=== PATIENT | female | born 1945 | race American Indian/Alaskan Native ===

== ENCOUNTER 2018-01-21 09:01 | Emergency (ER) | payer MEDICARE ==
--- NOTE | 2018-01-21 12:38 | XRay Report ---
KUB: There is a PEG tube present. The balloon position relative to the stomach cannot be confirmed without contrast. The abdominal gas pattern is unremarkable. Extensive dystrophic calcification is located around both hips. Impression: PEG tube position is indeterminate.
--- NOTE | 2018-01-21 13:37 | Emergency Department Report ---
ED General Adult HPI - General Chief complaint: Medical Clearance Stated complaint: G TUBE REPLACEMENT Time Seen by Provider: 01/21/18 09:40 Source: EMS Mode of arrival: Ambulatory Limitations: Physical Limitation - History of Present Illness Initial comments: [facility]. The patient is nonverbal and not able to add to the history. Per the notes sent by the penitentiary to have had issues with her feeding tube for the last 24-48 hours. Severity scale (0 -10): 0 - Related Data Previous Rx's Medication Instructions Recorded Last Taken Type Bisacodyl [Dulcolax suppos] 10 mg FL QDAY PRN #20 supp.rect 10/24/16 Unknown Rx Donepezil [Aricept] 5 mg PO QHS #30 tablet 10/24/16 Unknown Rx Hydrochlorothiazide [HCTZ] 12.5 mg PO QDAY #30 capsule 10/24/16 Unknown Rx Levofloxacin [Levaquin TAB] 500 mg PO QDAY #5 tablet 10/24/16 Unknown Rx Megestrol [Megace] 400 mg PO QDAY #30 oral.liqd 10/24/16 Unknown Rx Memantine Xr [Namenda Xr] 7 mg PO QDAY #30 cap 10/24/16 Unknown Rx Metoprolol [Lopressor TAB] 25 mg PO BID #60 tablet 10/24/16 Unknown Rx Lipase/Protease/Amylase [Pancreaze 1 each FEEDTUBE PRN PRN #30 capsule 10/27/[address] 10,500 Unit] Simple Syrup 15 ml FEEDTUBE PRN PRN #30 10/27/16 Unknown Rx oral.liqd Sodium Bicarbonate 325 mg FEEDTUBE PRN PRN #30 tablet 10/27/16 Unknown Rx Allergies Allergy/AdvReac Type Severity Reaction Status Date / Time No Known Allergies Allergy Unverified 09/25/16 07:28 ED Review of Systems ROS: Stated complaint: G TUBE REPLACEMENT Other details as noted in HPI Comment: Unobtainable due to pts medical conditions ED Past Medical Hx - Past Medical History Hx Hypertension: Yes Hx Dementia: Yes Hx HIV: No - Social History Smoking Status: Unknown if ever smoked - Medications Home Medications: Home Medications Medication Instructions Recorded Confirmed Last Taken Type Bisacodyl [Dulcolax suppos] 10 mg FL QDAY PRN #20 supp.rect 10/24/16 Unknown Rx Donepezil [Aricept] 5 mg PO QHS #30 tablet 10/24/16 Unknown Rx Hydrochlorothiazide [HCTZ] 12.5 mg PO QDAY #30 capsule 10/24/16 Unknown Rx Levofloxacin [Levaquin TAB] 500 mg PO QDAY #5 tablet 10/24/16 Unknown Rx Megestrol [Megace] 400 mg PO QDAY #30 oral.liqd 10/24/16 Unknown Rx Memantine Xr [Namenda Xr] 7 mg PO QDAY #30 cap 10/24/16 Unknown Rx Metoprolol [Lopressor TAB] 25 mg PO BID #60 tablet 10/24/16 Unknown Rx Lipase/Protease/Amylase [Pancreaze 1 each FEEDTUBE PRN PRN #30 capsule 10/27/16 Unknown Rx 10,500 Unit] Simple Syrup 15 ml FEEDTUBE PRN PRN #30 10/27/16 Unknown Rx oral.liqd Sodium Bicarbonate 325 mg FEEDTUBE PRN PRN #30 tablet 10/27/16 Unknown Rx ED Physical Exam - General Limitations: Physical Limitation General appearance: other (patient is awake) - Head Head exam: Present: atraumatic, normocephalic - Eye Eye exam: Present: normal appearance, PERRL, EOMI - ENT ENT exam: Present: normal exam - Neck Neck exam: Present: other (no carotid bruit) - Respiratory Respiratory exam: Present: normal lung sounds bilaterally - Cardiovascular Cardiovascular Exam: Present: regular rate, normal rhythm - GI/Abdominal GI/Abdominal exam: Present: soft, other (patient has a feeding tube present that appears to be poorly maintained with fracturing of the tubing ). Absent: distended, tenderness - Extremities Exam Extremities exam: Present: other (patient has contractures of the upper and lower extremities) - Neurological Exam Neurological exam: Present: alert, other (not able to assess due to the patient' s condition) - Psychiatric Psychiatric exam: Present: other (not able to assess due to the patient's condition) ED Course Vital Signs 01/21/18 01/21/18 01/21/18 10:48 10:50 14:28 Temperature 98.7 F 98.6 F Pulse Rate 103 H 100 H Respiratory 22 22 20 Rate Blood Pressure 114/67 136/70 [Left] O2 Sat by Pulse 98 98 98 Oximetry - Feeding Tube Replacement Reason for Replacement: not functioning/damaged Initial Tube Inserted: greater than 4 weeks Use of Tube: medications and feeding Insertion Site Prior to Procedure: clean [place] Tube Size (F): 18 Balloon Size (mls): 10 Verification of Placement: auscultation, KUB, gastrograffin injection Tube Secured by: G-tube attachment device Patient Tolerated Procedure: well ED Medical Decision Making - Medical Decision Making Initially tried to remove the feeding tube after reviewing the KUB but was met with resistance. Spoke to Dr. Apple who suggested we get a CT with IV contrast to check for placement. CT abdomen was done and shows that the pain tube is in good position. At this time it was decided to apply traction to the feeding tube which resulted and it began displaced. Critical care attestation.: If time is entered above; I have spent that time in minutes in the direct care of this critically ill patient, excluding procedure time. ED Disposition Clinical Impression: PEG tube malfunction Disposition: - TO HOME OR SELFCARE Is pt being admited?: No Does the pt Need Aspirin: No Condition: Stable Instructions: How to Use and Care for Your PEG Tube (ED) Additional Instructions: Return if worse Referrals: KESHIA MAZARIEGOS MD [Staff Physician] - 3-5 Days Time of Disposition: 15:43
--- NOTE | 2018-01-21 13:46 | Cat Scan Report ---
CT abdomen without contrast: Examination performed for PEG tube positioning. Contrast was injected through the PEG tube. Transverse images were obtained from the lower chest to the iliac crest. Coronal and sagittal 2-D reformatted images included. The visualized lung bases are clear. The density of contrast in the stomach is causing significant streak artifact. The PEG tube however is well positioned in the gastric antrum. No leakage is identified. The abdominal organs are not otherwise remarkable. There is a circumscribed mass in the superior right kidney measuring approximately 2.5 cm in size. Its attenuation is somewhat high for a simple cyst. The retroperitoneal structures otherwise appear generally unremarkable. The unopacified bowel and mesentery appear normal. Impressions: 1. Well-positioned PEG tube 2. The right renal mass is slightly larger than was identified on a prior exam in 2008 but had a significantly lower attenuation at that time. Recommendation: Consider abdominal ultrasound or repeat CT scan of the abdomen with IV contrast to better define renal mass.
[2018-01-21 14:29] VITALS: BP 136/70
--- NOTE | 2018-01-21 16:44 | XRay Report ---
FINAL REPORT EXAM: XR G-TUBE STUDY HISTORY: G-tube TECHNIQUE: KUB view(s) of abdomen before and after injection of contrast via G-tube. PRIORS: None. FINDINGS: G-tube projects over left upper quadrant, and contrast material appears confined within the gastric lumen. Bowel gas pattern grossly unremarkable. No apparent pneumoperitoneum. Osseous structures grossly unremarkable. IMPRESSION: 1. G-tube position as reported.
== END 2018-01-21 18:42 | disposition home or self-care (01) ==
LOC: ED 09:01
DX: K94.23 Gastrostomy malfunction (principal); I10 Essential (primary) hypertension
CPT/HCPCS: 43760; 74018; 74150; 99284; Q9963

== ENCOUNTER 2018-07-28 20:09 | Inpatient (IN) | payer MEDICARE ==
[2018-07-28] MEDS ORDERED: LEVAQUIN 750MG/150ML 750 MG/150 ML BAG IV ONE (20:27)
--- NOTE | 2018-07-28 20:32 | Emergency Department Report ---
HPI - General Time Seen by Provider: 07/28/18 20:22 - HPI HPI: 72-year-old female presents to the emergency department from [facility] with 2 different complaints/issues. First, despite the fact that the patient has a history of CVA with contractures and is bedbound, somehow the patient fell out of bed. It is unknown whether she hit her head or had any known trauma. The patient is demented at baseline. Secondly, the patient was found to have a fever and tachycardia. She was given some Tylenol at about 7:20 PM secondary to a fever 100.2. The patient has a history of CVA, quadriplegia, pressure ulcers, anemia, chronic viral hepatitis. Per EMS, the patient is currently at her baseline mental status which is occasionally calling out and/or withdrawing from painful stimuli but otherwise mostly does not follow commands. ED Past Medical Hx - Past Medical History Hx Hypertension: Yes Hx Dementia: Yes Hx HIV: No - Social History Smoking Status: Unknown if ever smoked - Medications Home Medications: Home Medications Medication Instructions Recorded Confirmed Last Taken Type Bisacodyl [Dulcolax suppos] 10 mg SD QDAY PRN #20 supp.rect 10/24/16 Unknown Rx Donepezil [Aricept] 5 mg PO QHS #30 tablet 10/24/16 Unknown Rx Megestrol [Megace] 400 mg PO QDAY #30 oral.liqd 10/24/16 Unknown Rx Memantine Xr [Namenda Xr] 7 mg PO QDAY #30 cap 10/24/16 Unknown Rx Metoprolol [Lopressor TAB] 25 mg PO BID #60 tablet 10/24/16 Unknown Rx hydroCHLOROthiazide [HCTZ] 12.5 mg PO QDAY #30 capsule 10/24/16 Unknown Rx levoFLOXacin [Levaquin TAB] 500 mg PO QDAY #5 tablet 10/24/16 Unknown Rx Lipase/Protease/Amylase [Pancreaze 1 each FEEDTUBE PRN PRN #30 capsule 10/27/16 Unknown Rx 10,500 Unit] Simple Syrup 15 ml FEEDTUBE PRN PRN #30 10/27/16 Unknown Rx oral.liqd Sodium Bicarbonate 325 mg FEEDTUBE PRN PRN #30 tablet 10/27/16 Unknown Rx ED Review of Systems ROS: Stated complaint: FEVER/GROUND LEVEL FALL Other details as noted in HPI Comment: Unobtainable due to pts medical conditions Physical Exam - Physical Exam Physical Exam: GENERAL: The patient is well-developed well-nourished. HEENT: Normocephalic. Atraumatic. Patient has moist mucous membranes. EYES: Extraocular motions are intact. Pupils are equal and reactive to light bilaterally. NECK: Supple. Trachea is midline. CHEST/LUNGS: Clear to auscultation. There is no respiratory distress noted. HEART/CARDIOVASCULAR: Regular. There is mild tachycardia. There is no obvious murmur. ABDOMEN: Abdomen is soft, nontender. Patient has normal bowel sounds. There is no abdominal distention. SKIN: Patient has multiple pressure ulcers. Skin is warm and dry. NEURO: Patient is awake but mostly nonresponsive except for withdrawal from painful stimuli. MUSCULOSKELETAL: There is no tenderness or deformity. There is no evidence of acute injury. ED Medical Decision Making - Lab Data Result diagrams: 07/28/18 20:35 07/28/18 20:35 - EKG Data -: EKG Interpreted by Me EKG shows normal: sinus rhythm, axis (left axis deviation), intervals (prolonged QTC), QRS complexes (LVH), ST-T waves Rate: tachycardia (110 bpm) - EKG Data When compared to previous EKG there are: previous EKG unavailable Interpretation: other (sinus tachycardia, LVH, prolonged QTC) - Radiology Data Radiology results: report reviewed, image reviewed interpreted by me: Chest x-ray does not show any pneumothorax, pleural effusion, pneumonia or obvious focal consolidation. EXAM: CT CERVICAL SPINE WO CON HISTORY: fall, traumA PT UNRESPONSIVE, PROBABLY HER BASELINE B/C SHE HAS A PEG TUBE. BEST STUDY POSSIBLE. TRIED TO DO A FEW MORE MANIPULATED REFORMATS. TECHNIQUE: Helical axial CT imaging of the cervical spine. Images are reconstructed in the sagittal and coronal planes. PRIORS: None. FINDINGS: The vertebral bodies are normal in height. There is no evidence of fracture or subluxation. There is multilevel degenerative disc and facet disease. The paraspinous soft tissues are unremarkable. IMPRESSION: No evidence of acute fracture or subluxation. Multilevel degenerative disc disease EXAM: XR PELVIS 1-2V HISTORY: fall COMPARISON: None available. FINDINGS: AP view of the pelvis obtained. Prominent heterotopic ossification along the lateral margins of the bilateral hip joints. There is a transverse fracture of the superior margin right greater trochanter. This is of uncertain chronicity but is suspected to be chronic. Narrowing of the bilateral hip joint spaces with osteophyte. Pelvic ring is grossly intact. IMPRESSION: Transverse fracture through the base of the right greater trochanter suspected to be chronic. Acute fracture is not excluded by plain film. No other fracture identified. Degenerative changes of bilateral hips with prominent heterotopic ossification along the lateral margins of the bilateral hips. EXAM: CT HEAD/BRAIN WO CON HISTORY: fall, trauma. PT UNRESPONSIVE, PROBABLY HER BASELINE B/C SHE HAS A PEG TUBE. BEST STUDY POSSIBLE. TECHNIQUE: Contiguous axial images of the head were obtained without the use of intravenous contrast. PRIORS: None. FINDINGS: The cerebral hemispheres are without focal lesions. There is no evidence of acute infarct or intracranial hemorrhage. There is no mass lesion or mass effect. There are no abnormal extra-axial fluid collections. The ventricles and sulci are prominent consistent with generalized loss of brain substance, appropriate for age. There is deep white matter lucency consistent with advanced chronic microvascular ischemic disease. The visualized skull and orbits are unremarkable. The visualized paranasal sinuses are clear. There is fluid or cerumen in the left external auditory canal. There is soft tissue attenuation in the left middle ear and mastoid air cells. IMPRESSION: 1. No evidence of acute infarct or intracranial hemorrhage. 2. White matter lucency consistent with advanced chronic microvascular ischemic disease. 3. Fluid or cerumen in the left external auditory canal 4. Opacification of the left middle ear and mastoid air cells may be due to chronic otitis media and mastoiditis. Transcribed By: CAR Dictated By: MARIA DOLORES DE LEON MD Electronically Authenticated By: MARIA DOLORES DE LEON MD Signed Date/Time: 07/28/18 4891 - Medical Decision Making [facility] having a [facility] out of bed and also with concern for sepsis. Patient does have fever and tachycardia. On labs the patient has leukocytosis, lactic acidosis. She has a slightly elevated first troponin level. CT head did not show any bleed, shift, mass, ischemia. CT of the cervical spine also did not show any acute process. X-ray of the pelvis was read by radiology as concern for a chronic right hip fracture. Chest x-ray did not show any acute process. Urinalysis was negative for UTI. Patient was negative for influenza. She was started empirically on some Rocephin. She will be admitted to the hospital for further evaluation and treatment and was accepted for admission by the hospitalist, Dr. Cali. - Differential Diagnosis SIRS, sepsis, pneumonia, influenza, UTI Critical Care Time: No Critical care attestation.: If time is entered above; I have spent that time in minutes in the direct care of this critically ill patient, excluding procedure time. ED Disposition Clinical Impression: Elevated troponin, SIRS (systemic inflammatory response syndrome), Lactic acidosis Hypertension Qualifiers: Hypertension type: essential hypertension Qualified Code(s): I10 - Essential (primary) hypertension Disposition: OP ADMIT IP TO THIS HOSP Is pt being admited?: Yes Condition: Serious Instructions: Hypertension (ED) Time of Disposition: 22:46
[2018-07-28] MEDS ORDERED: NACL 0.9% 1000 ML IV ONE (20:35)
[2018-07-28] MEDS ORDERED: ROCEPHIN/NS 1 GM/50 ML 1 GM/50 ML BAG IV ONE (20:43)
[2018-07-28 20:46] LABS: Basophils # (Auto) 0.1 K/mm3 (0.0-0.1); Basophils % (Auto) 0.5 % (0.0-1.8); Eosinophils # (Auto) 0.1 K/mm3 (0.0-0.4); Eosinophils % (Auto) 0.3 % (0.0-4.3); Hematocrit 27.1 % (30.3-42.9); Hemoglobin 8.7 gm/dl (10.1-14.3); Lymphocytes # (Auto) 1.3 K/mm3 (1.2-5.4); Mean Corpuscular HGB Conc 32 % (30-34); Mean Corpuscular Volume 85 fl (79-97); Monocytes # (Auto) 1.4 K/mm3 (0.0-0.8); Monocytes % (Auto) 9.2 % (0.0-7.3); Platelet Count 279 K/mm3 (140-440); Red Cell Distribution Width 15.2 % (13.2-15.2)
[2018-07-28] MEDS ORDERED: NACL 0.9% 500 ML 500 ML ONE (20:58)
[2018-07-28 21:07] LABS: Albumin 3.1 g/dL (3.9-5); BUN/Creatinine Ratio 43; Blood Urea Nitrogen 26 mg/dL (7-17); Calcium 9.2 mg/dL (8.4-10.2); Hemolysis Index 214
[2018-07-28 21:15] LABS: Alanine Aminotransferase 14 units/L (7-56)
[2018-07-28 21:28] LABS: Chol/HDL Ratio 2.7 %
--- NOTE | 2018-07-28 21:37 | Cat Scan Report ---
FINAL REPORT EXAM: CT HEAD/BRAIN WO CON HISTORY: fall, trauma. PT UNRESPONSIVE, PROBABLY HER BASELINE B/C SHE HAS A PEG TUBE. BEST STUDY POSSIBLE. TECHNIQUE: Contiguous axial images of the head were obtained without the use of intravenous contrast . PRIORS: None. FINDINGS: The cerebral hemispheres are without focal lesions. There is no evidence of acute infarct or intracra nial hemorrhage. There is no mass lesion or mass effect. There are no abnormal extra-axial fluid col lections. The ventricles and sulci are prominent consistent with generalized loss of brain substance, appropriate for age. There is deep white matter lucency consistent with advanced chronic microvascul ar ischemic disease. The visualized skull and orbits are unremarkable. The visualized paranasal sinus es are clear. There is fluid or cerumen in the left external auditory canal. There is soft tissue attenuation in th e left middle ear and mastoid air cells. IMPRESSION: 1. No evidence of acute infarct or intracranial hemorrhage. 2. White matter lucency consistent with advanced chronic microvascular ischemic disease. 3. Fluid or cerumen in the left external auditory canal 4. Opacification of the left middle ear and mastoid air cells may be due to chronic otitis media and mastoiditis.
[2018-07-28] MEDS ORDERED: NACL 0.9% 500 ML 500 ML IV ONE (21:41)
--- NOTE | 2018-07-28 21:51 | Cat Scan Report ---
FINAL REPORT EXAM: CT CERVICAL SPINE WO CON HISTORY: fall, traumA PT UNRESPONSIVE, PROBABLY HER BASELINE B/C SHE HAS A PEG TUBE. BEST STUDY P OSSIBLE. TRIED TO DO A FEW MORE MANIPULATED REFORMATS. TECHNIQUE: Helical axial CT imaging of the cervical spine. Images are reconstructed in the sagittal and coronal planes. PRIORS: None. FINDINGS: The vertebral bodies are normal in height. There is no evidence of fracture or subluxation. There is multilevel degenerative disc and facet disease. The paraspinous soft tissues are unremarkable. IMPRESSION: No evidence of acute fracture or subluxation. Multilevel degenerative disc disease
--- NOTE | 2018-07-28 22:02 | XRay Report ---
FINAL REPORT EXAM: XR PELVIS 1-2V HISTORY: fall COMPARISON: None available. FINDINGS: AP view of the pelvis obtained. Prominent heterotopic ossification along the lateral margins of the b ilateral hip joints. There is a transverse fracture of the superior margin right greater trochanter. This is of uncertain chronicity but is suspected to be chronic. Narrowing of the bilateral hip joint spaces with osteophyte. Pelvic ring is grossly intact. IMPRESSION: Transverse fracture through the base of the right greater trochanter suspected to be chronic. Acute f racture is not excluded by plain film. No other fracture identified. Degenerative changes of bilateral hips with prominent heterotopic ossification along the lateral brown ins of the bilateral hips.
--- NOTE | 2018-07-28 22:03 | XRay Report ---
FINAL REPORT EXAM: XR CHEST 1V AP HISTORY: fever COMPARISON: CT chest September 2016. FINDINGS: Frontal view(s) of the chest obtained. Stable [id number] cardiac enlargement. Shallow inspirati on. Linear densities at the lung bases likely reflecting atelectasis.. No large consolidation or effu amadeo. No pneumothorax. IMPRESSION: Stable cardiac enlargement. Shallow inspiration. Probable linear atelectasis at the lung bases. No la rge consolidation or effusion.
[2018-07-28 22:25] LABS: Bilirubin,Urine NEG (Negative); Blood,Urine NEG (Negative); Color,Urine Yellow (Yellow); Mucus,Urine FEW /HPF; Protein,Urine <15 mg/dL mg/dL (Negative); Urobilinogen,Urine < 2.0 mg/dL (<2.0)
[2018-07-28] MEDS ORDERED: ASPIRIN PO ONE (22:46)
[2018-07-29] MEDS: TYLENOL PO PRN ×2 (02:01→10:14)
[2018-07-29] MEDS: NACL 0.9% 1000 ML 1,000 ML IV SCH ×3 (02:02→19:48)
[2018-07-29] MEDS ORDERED: SIMPLE SYRUP FEEDTUBE PRN ×3 (03:06→17:41)
[2018-07-29] MEDS ORDERED: PANCREAZE DR 10,500 UNIT FEEDTUBE PRN ×2 (03:06→17:41)
[2018-07-29] MEDS ORDERED: SODIUM BICARBONATE FEEDTUBE PRN ×2 (03:06→17:41)
[2018-07-29] MEDS ORDERED: DULCOLAX PR PRN (03:06)
--- NOTE | 2018-07-29 04:00 | History and Physical Report ---
CHIEF COMPLAINT: Fever. Other complaint is tachycardia. HISTORY OF PRESENT ILLNESS: The patient is a 72-year-old female brought in from [facility] because of fever and tachycardia. The patient was also noted to have fallen out of bed in the last 24 hours prior to presentation. It was uncertain whether the patient hit her head on the ground or not. There was no history of nausea and vomiting. No history of cough and the patient was brought in for evaluation. PAST MEDICAL HISTORY: Pertinent for cerebrovascular accident, quadriplegia, pressure ulcers, anemia, viral hepatitis, dementia, hypertension. PAST SURGICAL HISTORY: Noncontributory. FAMILY HISTORY: Noncontributory. SOCIAL HISTORY: The patient stays at a [facility], does not smoke, does not drink alcohol, and does not use illicit drugs. MEDICATIONS: The patient is on Dulcolax suppository 10 mg per rectum daily as needed for constipation, Aricept 5 mg by mouth at bedtime, Megace 400 mg by mouth daily, memantine 7 mg by mouth daily, Lopressor 25 mg by mouth twice daily, hydrochlorothiazide 12.5 mg by mouth daily, Levaquin 500 mg by mouth daily, Pancreaze via feeding tube as needed, Simple Syrup 15 mL per tube as needed, sodium bicarbonate 325 mg via feeding tube as needed. ALLERGIES: There are no known drug allergies. REVIEW OF SYSTEMS: CONSTITUTIONAL: There is fever with no chills, no diaphoresis. HEENT: There is no headache or sore throat. CARDIOVASCULAR SYSTEM: There is tachycardia with no chest pain, no orthopnea. RESPIRATORY SYSTEM: There is no shortness of breath or cough. GASTROINTESTINAL SYSTEM: There is no nausea, no vomiting, no abdominal pain, diarrhea or constipation. NEUROLOGICAL SYSTEM: There is no numbness, no dizziness, no change in mental status. MUSCULOSKELETAL SYSTEM: There is no joint pain or swelling. DERMATOLOGICAL SYSTEM: There is no skin rash or itching. GENITOURINARY SYSTEM: There is no dysuria, hematuria or flank pain. Rest of system review is normal. PHYSICAL EXAMINATION: GENERAL: At the time of exam, the patient was found to be lethargic, arousable, and not in acute distress. VITAL SIGNS: The patient's vital signs show temperature of 100.5 degrees Fahrenheit, pulse of 106, respiration 24, blood pressure 135/75, O2 sat of 95% on room air. HEENT: Shows pupils to be reactive to light and accommodating. Extraocular muscles are intact. NECK: Supple with no JVD or carotid bruit. CARDIOVASCULAR SYSTEM: Shows normal first and second heart sounds with no gallops or murmurs, but there is rapid rate. RESPIRATORY SYSTEM: Shows good air entry on both sides of the lung with no abnormal breath sounds. GASTROINTESTINAL SYSTEM: Shows abdomen to be full, soft, nontender with no organomegaly or rigidity. NEUROLOGIC: Shows no new focal deficits. MUSCULOSKELETAL SYSTEM: Shows no joint swelling or tenderness. DERMATOLOGICAL SYSTEM: Shows no skin rash. GENITOURINARY SYSTEM: Showing no costovertebral angle tenderness. PERTINENT LABORATORY AND IMAGING STUDIES: The patient had CT of the head without contrast done that shows no evidence of acute infarct or intracranial hemorrhage. There is white matter lucency consistent with advanced chronic microvascular ischemic changes. There is finding of fluid or cerumen in the left external auditory canal and there is finding of opacification of the left middle ear and mastoid air cells, which the radiologist says maybe due to chronic otitis media and mastoiditis. The patient also had cervical spine CT that shows no evidence of acute fracture or subluxation with marked multilevel degenerative disk disease. The patient also had chest x-ray done that shows stable cardiac enlargement, which the radiologist says maybe probably due to linear atelectasis at the lung bases. The patient had a pelvic X-ray done because of falling down that shows transverse fracture through the base of the right greater trochanter, suspected to be chronic and there is also finding of the degenerative changes of bilateral hips with prominent heterotopic ossification along the lateral margins of the bilateral hips. DIAGNOSES: 1. Sepsis. 2. Pressure ulcers. PLAN OF ACTION: 1. The patient will be admitted to telemetry. 2. The patient will be on IV Levaquin 750 mg daily and also the patient will be on IV Zosyn 3.375 grams q. 8 hours. 3. The patient will be on IV normal saline at 125 mL an hour. 4. The patient will be on Tylenol 650 mg by mouth every 4 hours as needed for fever and headache. 5. The patient will be on heparin 5000 units subcutaneous q. 12 hours for DVT prophylaxis. 6. The patient will have wound care nurse consult for evaluation and treatment of a pressure sore. 7. The patient's home medications will be reconciled and started accordingly. JOB# [id number] OCN/NTS AGUSTIND
[2018-07-29] MEDS: ZOSYN/NS 3.375GM/50ML 3.375 GM/50 ML BAG IV SCH ×3 (06:01→22:22)
[2018-07-29] MEDS ORDERED: MEMANTINE 7 MG PO SCH (10:00)
[2018-07-29] MEDS: LEVAQUIN 750MG/150ML 750 MG/150 ML BAG IV SCH (10:03)
[2018-07-29] MEDS: LOPRESSOR PO SCH ×2 (10:13→22:23)
[2018-07-29] MEDS: MEGACE PO SCH (10:13)
[2018-07-29] MEDS: HCTZ PO SCH (10:13)
[2018-07-29] MEDS: NAMENDA PO SCH (10:14)
[2018-07-29] MEDS: HEPARIN SUB-Q SCH ×2 (10:15→22:22)
--- NOTE | 2018-07-29 17:17 | Progress Note ---
Assessment and Plan Assessment and plan: Patient is a 72-year-old female presents to the emergency department from [facility] with suspected sepsis. Prior to the fever and tachycardia the patient had falling out of bed and is unknown how that happened considering that she is a quadriplegic. In any case she has a baseline of dementia mental status of occasionally calling out and/or withdrawing from painful stimuli but otherwise mostly does not follow commands. X-ray of the pelvis was read by radiology as concern for a chronic right hip fracture. Chest x-ray did not show any acute process. Urinalysis was negative for UTI. Patient was negative for influenza. She was started empirically on some Rocephin. CT head. 1. No evidence of acute infarct or intracranial hemorrhage. 2. White matter lucency consistent with advanced chronic microvascular ischemic disease. 3. Fluid or cerumen in the left external auditory canal 4. Opacification of the left middle ear and mastoid air cells may be due to c hronic otitis media and mastoiditis. SIRS Heel ulcer and sacral Quadriplegia Anemia of chronic disease Lactic acidemia Dementia Plan Continue supportive care Elevated WBC could be secondary to reactivity Wound care Monitor for any recurrent fever Continue appropriate home medication Discussed with family patient does have a poor prognostic factors If remains stable in the next 24-48 pounds patient, discharge back to the facility. DVT and GI prophylaxis History Interval history: Patient is seen today for: Fall and sepsis Seen and examined at bedside; 24hour events reviewed; nursing staff ; no adverse overnight events reported to me; isn't unable to give information chronic baseline of dementia quadriplegia. Patient is a detention patient Hospitalist Physical - Physical exam Narrative exam: VITAL SIGNS: Reviewed. GENERAL: The patient appeared clinically ill-appearing. Vital signs as documented. HEAD: No signs of head trauma. EYES: Pupils are equal. Extraocular motions intact. EARS: Hearing grossly intact. MOUTH: Oropharynx is normal. Mild right facial droop chronic per family NECK: No adenopathy, no JVD. CHEST: Chest with clear breath sounds bilaterally. No wheezes, rales, or rhonchi. CARDIAC: Regular rate and rhythm. S1 and S2, without murmurs, gallops, or rubs. VASCULAR: No Edema. Peripheral pulses normal and equal in all extremities. ABDOMEN: Soft, without detectable tenderness. No sign of distention. No rebound or guarding, and no masses palpated. Bowel Sounds normal. MUSCULOSKELETAL: Severely contracted quadriplegic NEUROLOGIC EXAM: Awake but not following any commands current to son patient was calls his name but unable to provide any further . PSYCHIATRIC: Unable to examine SKIN: Sacral ulcers see medicine documentation. - Constitutional Vitals: Temp Pulse Resp BP Pulse Ox 100.1 F H 102 H 20 114/59 95 07/29/18 13:40 07/29/18 13:40 07/29/18 13:40 07/29/18 13:40 07/29/18 13:40 Results - Labs CBC & Chem 7: 07/28/18 20:35 07/28/18 20:35 Labs: Laboratory Last Values WBC 14.8 K/mm3 (4.5-11.0) H 07/28/18 20:35 RBC 3.20 M/mm3 (3.65-5.03) L 07/28/18 20:35 Hgb 8.7 gm/dl (10.1-14.3) L 07/28/18 20:35 Hct 27.1 % (30.3-42.9) L 07/28/18 20:35 MCV 85 fl (79-97) 07/28/18 20:35 MCH 27 pg (28-32) L 07/28/18 20:35 MCHC 32 % (30-34) 07/28/18 20:35 RDW 15.2 % (13.2-15.2) 07/28/18 20:35 Plt Count 279 K/mm3 (140-440) 07/28/18 20:35 Lymph % (Auto) 9.0 % (13.4-35.0) L 07/28/18 20:35 [place] % (Auto) 9.2 % (0.0-7.3) H 07/28/18 20:35 Eos % (Auto) 0.3 % (0.0-4.3) 07/28/18 20:35 Baso % (Auto) 0.5 % (0.0-1.8) 07/28/18 20:35 Lymph # 1.3 K/mm3 (1.2-5.4) 07/28/18 20:35 [place] # 1.4 K/mm3 (0.0-0.8) H 07/28/18 20:35 Eos # 0.1 K/mm3 (0.0-0.4) 07/28/18 20:35 Baso # 0.1 K/mm3 (0.0-0.1) 07/28/18 20:35 Seg Neutrophils % 81.0 % (40.0-70.0) H 07/28/18 20:35 Seg Neutrophils # 12.0 K/mm3 (1.8-7.7) H 07/28/18 20:35 APTT 27.9 Sec. (24.2-36.6) 07/28/18 20:35 Sodium 138 mmol/L (137-145) 07/28/18 20:35 Potassium 4.7 mmol/L (3.6-5.0) 07/28/18 20:35 Chloride 96.2 mmol/L (98-107) L 07/28/18 20:35 Carbon Dioxide 28 mmol/L (22-30) 07/28/18 20:35 Anion Gap 19 mmol/L 07/28/18 20:35 BUN 26 mg/dL (7-17) H 07/28/18 20:35 Creatinine 0.6 mg/dL (0.7-1.2) L 07/28/18 20:35 Estimated GFR > 60 ml/min 07/28/18 20:35 BUN/Creatinine Ratio 43 % 07/28/18 20:35 Glucose 277 mg/dL (65-100) H 07/28/18 20:35 POC Glucose 174 (70-105) H 07/29/18 16:19 Lactic Acid 1.50 mmol/L (0.7-2.0) 07/29/18 06:55 Calcium 9.2 mg/dL (8.4-10.2) 07/28/18 20:35 Total Bilirubin 0.40 mg/dL (0.1-1.2) 07/28/18 20:35 AST 44 units/L (5-40) H 07/28/18 20:35 ALT 14 units/L (7-56) 07/28/18 20:35 Alkaline Phosphatase 111 units/L (35-129) 07/28/18 20:35 Troponin T 0.047 ng/mL (0.00-0.029) H 07/28/18 20:35 Total Protein 9.2 g/dL (6.3-8.2) H 07/28/18 20:35 Albumin 3.1 g/dL (3.9-5) L 07/28/18 20:35 Albumin/Globulin Ratio 0.5 % 07/28/18 20:35 Triglycerides 84 mg/dL (2-149) 07/28/18 20:35 Cholesterol 138 mg/dL (50-199) 07/28/18 20:35 LDL Cholesterol Direct 86 mg/dL (50-130) 07/28/18 20:35 HDL Cholesterol 51 mg/dL (40-59) 07/28/18 20:35 Cholesterol/HDL Ratio 2.70 % 07/28/18 20:35 Urine Color Yellow (Yellow) 07/28/18 22:04 Urine Turbidity Clear (Clear) 07/28/18 22:04 Urine pH 7.0 (5.0-7.0) 07/28/18 22:04 Ur Specific [place] 1.013 (1.003-1.030) 07/28/18 22:04 Urine Protein <15 mg/dl mg/dL (Negative) 07/28/18 22:04 Urine Glucose (UA) Neg mg/dL (Negative) 07/28/18 22:04 Urine Ketones Neg mg/dL (Negative) 07/28/18 22:04 Urine Blood Neg (Negative) 07/28/18 22:04 Urine Nitrite Neg (Negative) 07/28/18 22:04 Urine Bilirubin Neg (Negative) 07/28/18 22:04 Urine Urobilinogen < 2.0 mg/dL (<2.0) 07/28/18 22:04 Ur Leukocyte Esterase Neg (Negative) 07/28/18 22:04 Urine WBC (Auto) 2.0 /HPF (0.0-6.0) 07/28/18 22:04 Urine RBC (Auto) 6.0 /HPF (0.0-6.0) 07/28/18 22:04 U Epithel Cells (Auto) 12.0 /HPF (0-13.0) 07/28/18 22:04 Urine Mucus Few /HPF 07/28/18 22:04 Influenza A (Rapid) Negative (Negative) 07/28/18 22:03 Influenza B (Rapid) Negative (Negative) 07/28/18 22:03
[2018-07-29] MEDS: ARICEPT PO SCH (22:23)
[2018-07-30] MEDS: NACL 0.9% 1000 ML 1,000 ML IV SCH (04:39)
[2018-07-30] MEDS: ZOSYN/NS 3.375GM/50ML 3.375 GM/50 ML BAG IV SCH (05:39)
[2018-07-30 05:55] LABS: Hematocrit 21.1 % (30.3-42.9); Hemoglobin 6.8 gm/dl (10.1-14.3); Mean Corpuscular HGB Conc 32 % (30-34); Mean Corpuscular Volume 84 fl (79-97); Platelet Count 257 K/mm3 (140-440); Red Cell Distribution Width 15.2 % (13.2-15.2)
[2018-07-30 06:22] LABS: BUN/Creatinine Ratio 32; Blood Urea Nitrogen 16 mg/dL (7-17); Calcium 8.9 mg/dL (8.4-10.2); Hemolysis Index 0
[2018-07-30] MEDS ORDERED: NACL 0.9% 500 ML 500 ML IV NR (08:30)
[2018-07-30 09:18] LABS: Hematocrit 24.9 % (30.3-42.9)
[2018-07-30] MEDS ORDERED: POTASSIUM CHLORIDE FEEDTUBE ONE (10:00)
[2018-07-30] MEDS ORDERED: XYLOCAINE TOPICAL 4% TP ONE (11:00)
[2018-07-30] MEDS: LEVAQUIN 750MG/150ML 750 MG/150 ML BAG IV SCH (11:16)
[2018-07-30] MEDS: HCTZ PO SCH (11:17)
[2018-07-30] MEDS: NAMENDA PO SCH (11:17)
[2018-07-30] MEDS: MEGACE PO SCH (11:17)
[2018-07-30] MEDS: LOPRESSOR PO SCH ×2 (11:17→21:47)
[2018-07-30] MEDS: HEPARIN SUB-Q SCH ×2 (11:19→21:47)
--- NOTE | 2018-07-30 12:46 | Consultation ---
History of Present Illness Consult date: 07/30/18 Chief complaint: wound - History of present illness History of present illness: 72 yo F with hx of dementia presents from [facility] with possible sepsis. The patient cannot provide any history and all information in obtained from the chart and from her son Akira. Apparently the patient was being turned and was dropped from her bed. She is being worked up for sepsis and was found to have multiple pressure ulcers. She was evaluated by the go cart mechanic and a wound on her right hip was shown to have necrotic tissue and therefore debridement was recommended. Tm today 100.4 Past History Past Medical History: hypertension, other (dementia, bedbound) Past Surgical History: Other (unknown) Social history: no significant social history, other (lives in [facility]) Family history: no significant family history Medications and Allergies Allergies Allergy/AdvReac Type Severity Reaction Status Date / Time No Known Allergies Allergy Unverified 09/25/16 07:28 Home Medications Medication Instructions Recorded Confirmed Last Taken Type Bisacodyl [Dulcolax suppos] 10 mg [place] QDAY PRN #20 supp.rect 10/24/16 Unknown Rx Donepezil [Aricept] 5 mg PO QHS #30 tablet 10/24/16 Unknown Rx Megestrol [Megace] 400 mg PO QDAY #30 oral.liqd 10/24/16 Unknown Rx Memantine Xr [Namenda Xr] 7 mg PO QDAY #30 cap 10/24/16 Unknown Rx Metoprolol [Lopressor TAB] 25 mg PO BID #60 tablet 10/24/16 Unknown Rx hydroCHLOROthiazide [HCTZ] 12.5 mg PO QDAY #30 capsule 10/24/16 Unknown Rx levoFLOXacin [Levaquin TAB] 500 mg PO QDAY #5 tablet 10/24/16 Unknown Rx Lipase/Protease/Amylase [Pancreaze 1 each FEEDTUBE PRN PRN #30 capsule 10/27/[address] 10,500 Unit] Simple Syrup 15 ml FEEDTUBE PRN PRN #30 10/27/16 Unknown Rx oral.liqd Sodium Bicarbonate 325 mg FEEDTUBE PRN PRN #30 tablet 10/27/16 Unknown Rx Active Meds: Active Medications Acetaminophen (Tylenol) 650 mg PO Q4H PRN PRN Reason: Fever >101 Last Admin: 07/29/18 10:14 Dose: 650 mg Documented by: Lipase/Protease/Amylase (Frieda Herrmann 10,500 Unit) 1 each FEEDTUBE PRN PRN PRN Reason: For Clogged Feeding Tube Lipase/Protease/Amylase (Frieda Herrmann 10,500 Unit) 1 each FEEDTUBE PRN PRN PRN Reason: For Clogged Feeding Tube Bisacodyl (Dulcolax) 10 mg [place] QDAY PRN PRN Reason: Constipation unrelieved by MOM Donepezil HCl (Aricept) 5 mg PO QHS [facility] Last Admin: 07/29/18 22:23 Dose: 5 mg Documented by: Heparin Sodium (Porcine) (Heparin) 5,000 unit SUB-Q Q12HR [facility] Last Admin: 07/30/18 11:19 Dose: 5,000 unit Documented by: Hydrochlorothiazide (Hctz) 12.5 mg PO QDAY [facility] Last Admin: 07/30/18 11:17 Dose: 12.5 mg Documented by: Levofloxacin/Dextrose (Levaquin 750mg/150ml) 750 mg in 150 mls @ 100 mls/hr IV Q24HR [facility]; Protocol Last Admin: 07/30/18 11:16 Dose: 100 mls/hr Documented by: Sodium Chloride (Nacl 0.9% 1000 Ml) 1,000 mls @ 125 mls/hr IV DIRECT [facility] Last Admin: 07/30/18 04:39 Dose: 125 mls/hr Documented by: Piperacillin Sod/Tazobactam Sod (Zosyn/Ns 3.375gm/50ml) 3.375 gm in 50 mls @ 100 mls/hr IV Q8HR [facility]; Protocol Last Admin: 07/30/18 05:39 Dose: 100 mls/hr Documented by: Megestrol Acetate (Megace) 400 mg PO QDAY [facility] Last Admin: 07/30/18 11:17 Dose: 400 mg Documented by: Memantine (Namenda) 5 mg PO QDAY [facility] Last Admin: 07/30/18 11:17 Dose: 5 mg Documented by: Metoprolol Tartrate (Lopressor) 25 mg PO BID [facility] Last Admin: 07/30/18 11:17 Dose: 25 mg Documented by: Simple Syrup (Simple Syrup) 15 ml FEEDTUBE PRN PRN PRN Reason: Hypoglycemia Simple Syrup (Simple Syrup) 15 ml FEEDTUBE PRN PRN PRN Reason: Hypoglycemia Simple Syrup (Simple Syrup) 30 ml FEEDTUBE PRN PRN PRN Reason: Hypoglycemia Sodium Bicarbonate (Sodium Bicarbonate) 325 mg FEEDTUBE PRN PRN PRN Reason: For Clogged Feeding Tube Sodium Bicarbonate (Sodium Bicarbonate) 325 mg FEEDTUBE PRN PRN PRN Reason: For Clogged Feeding Tube Review of Systems ROS unobtainable: due to mental status Exam Vital Signs Temp Pulse Resp BP Pulse Ox 99.9 F H 116 H 18 152/62 96 07/28/18 20:45 07/28/18 20:45 07/28/18 20:45 07/28/18 20:45 07/28/18 20:45 Narrative exam: Gen: Awake with eyes open. Does not respond to verbal stimuli, minimal response to painful stimuli ENT: no scleral icterus or conjunctival pallor CV: s1, S2+ Resp: even and unlabored Ext: multiple pressure ulcers - sacrum, lower extremities and right hip. All with clean wound bases except right hip. There is necrotic skin and subcutaneous tissue within the wound. Periwound tissue is healed and suggests a larger wound was present at one time. Results - Labs 07/30/18 08:42 07/30/18 05:08 Abnormal lab results 07/29/18 07/29/18 07/30/18 Range/Units 16:19 22:05 05:08 WBC 14.6 H (4.5-11.0) K/mm3 RBC 2.50 L (3.65-5.03) M/mm3 Hgb 6.8 L (10.1-14.3) gm/dl Hct 21.1 L D (30.3-42.9) % MCH 27 L (28-32) pg Sodium (137-145) mmol/L Potassium (3.6-5.0) mmol/L Chloride (98-107) mmol/L Creatinine (0.7-1.2) mg/dL Glucose (65-100) mg/dL POC Glucose 174 H 153 H (70-105) Crossmatch 07/30/18 07/30/18 07/30/18 Range/Units 05:08 07:55 08:42 WBC (4.5-11.0) K/mm3 RBC (3.65-5.03) M/mm3 Hgb 8.0 L (10.1-14.3) gm/dl Hct 24.9 L (30.3-42.9) % MCH (28-32) pg Sodium 147 H D (137-145) mmol/L Potassium 3.2 L D (3.6-5.0) mmol/L Chloride 109.1 H (98-107) mmol/L Creatinine 0.5 L (0.7-1.2) mg/dL Glucose 173 H (65-100) mg/dL POC Glucose 149 H (70-105) Crossmatch 07/30/18 07/30/18 Range/Units 08:45 12:08 WBC (4.5-11.0) K/mm3 RBC (3.65-5.03) M/mm3 Hgb (10.1-14.3) gm/dl Hct (30.3-42.9) % MCH (28-32) pg Sodium (137-145) mmol/L Potassium (3.6-5.0) mmol/L Chloride (98-107) mmol/L Creatinine (0.7-1.2) mg/dL Glucose (65-100) mg/dL POC Glucose 158 H (70-105) Crossmatch See Detail Diabetes panel 07/30/18 Range/Units 05:08 Sodium 147 H D (137-145) mmol/L Potassium 3.2 L D (3.6-5.0) mmol/L Chloride 109.1 H (98-107) mmol/L Carbon Dioxide 24 (22-30) mmol/L BUN 16 (7-17) mg/dL Creatinine 0.5 L (0.7-1.2) mg/dL Glucose 173 H (65-100) mg/dL Calcium 8.9 (8.4-10.2) mg/dL Calcium panel 07/30/18 Range/Units 05:08 Calcium 8.9 (8.4-10.2) mg/dL Pituitary panel 07/30/18 Range/Units 05:08 Sodium 147 H D (137-145) mmol/L Potassium 3.2 L D (3.6-5.0) mmol/L Chloride 109.1 H (98-107) mmol/L Carbon Dioxide 24 (22-30) mmol/L BUN 16 (7-17) mg/dL Creatinine 0.5 L (0.7-1.2) mg/dL Glucose 173 H (65-100) mg/dL Calcium 8.9 (8.4-10.2) mg/dL Adrenal panel 07/30/18 Range/Units 05:08 Sodium 147 H D (137-145) mmol/L Potassium 3.2 L D (3.6-5.0) mmol/L Chloride 109.1 H (98-107) mmol/L Carbon Dioxide 24 (22-30) mmol/L BUN 16 (7-17) mg/dL Creatinine 0.5 L (0.7-1.2) mg/dL Glucose 173 H (65-100) mg/dL Calcium 8.9 (8.4-10.2) mg/dL - Imaging Chest x-ray: report reviewed Additional studies: pelvis XRAY Assessment and Plan 72 yo F with necrotic right hip wound Plan: 1. Recommend bedside debridement - consent obtained from lavinia Akira Waters over the telephone. Please see separate procedure note. 2. continue antibiotics 3. offloading 4. wound care - will apply wound vac to right hip wound after debridement. Continuing wound care per go cart mechanic 5. optimize nutrition Thank you, please call with questions.
--- NOTE | 2018-07-30 12:49 | Procedure Note ---
Date of procedure: 07/30/18 Pre-op diagnosis: necrotic right hip wound Procedure: excisional debridement necrotic right hip wound Findings: Consent verified and time out performed. 4% topical lidocaine applied to the wound for approximately 5 minutes. Digital debridement of all necrotic tissue was performed using tissue forceps and a curette. There was pinpoint bleeding from parts of the wound. 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 All necrotic tissue was debrided and the wound base is clean with pink granulation tissue. The wound is packed with a 4 x 4 gauze and hemostasis achieved pressure. Predebridement measurements: [id number] Post debridement measurements: 6cm x5cm x 5.5cm ([id number]) The patient tolerated the procedure well. A wound VAC was to be applied by the web content executive immediately after the procedure. All sharps were disposed of appropriately. Anesthesia: local Surgeon: ALBER GENAO Estimated blood loss: minimal Pathology: none Condition: stable Disposition: floor
[2018-07-30] MEDS: ZOSYN/NS 4.5GM/100ML 4.5 GM/100 ML VIAL IV SCH ×2 (15:56→21:45)
--- NOTE | 2018-07-30 17:19 | Progress Note ---
Assessment and Plan Assessment and plan: Patient is a 72-year-old female presents to the emergency department from [facility] with suspected sepsis. Prior to the fever and tachycardia the patient had fell out of bed and is unknown how that happened considering that she is a quadriplegic. In any case she has a baseline of dementia mental status of occasionally calling out and/or withdrawing from painful stimuli but otherwise mostly does not follow commands. X-ray of the pelvis was read by radiology as concern for a chronic right hip fracture. Chest x-ray did not show any acute process. Urinalysis was negative for UTI. Patient was negative for influenza. She was started empirically on some Rocephin. CT head. 1. No evidence of acute infarct or intracranial hemorrhage. 2. White matter lucency consistent with advanced chronic microvascular ischemic disease. 3. Fluid or cerumen in the left external auditory canal 4. Opacification of the left middle ear and mastoid air cells may be due to chr onic otitis media and mastoiditis. SIRS - On emperic antibiotic - Patient is still shooting fever Heel ulcer and sacral - I have consulted surgery and did debridement Quadriplegia - Supportive care Anemia of chronic disease - earlier this morning her hemoglobin was reported to be 6.8 and repeat one was 8 Lactic acidemia Dementia - Up with care Patient has poor prognosis and Dr Rivas discussed with family. DVT and GI prophylaxis Disposition - will discharge the patient back to SNF once fever free. History Interval history: Patient was seen and developed this morning, patient is febrile, noncommunic ative, in vegetative state. Hospitalist Physical - Physical exam Narrative exam: Not in cardiopulmonary distress. The patient appeared well nourished and normally developed. Vital signs as documented. Head exam is unremarkable. No scleral icterus . Neck is without jugular venous distension, thyromegaly, or carotid bruits. Lungs are clear to auscultation. Cardiac exam reveals regular rate and Rhythm. Abdominal exam reveals normal bowel sounds. HARVEST MANAGER: In vegetative state. - Constitutional Vitals: Temp Pulse Resp BP Pulse Ox 100.4 F H 104 H 20 127/79 97 07/30/18 14:33 07/30/18 14:33 07/30/18 14:33 07/30/18 14:33 07/30/18 14:33 Results - Labs CBC & Chem 7: 07/30/18 08:42 07/30/18 05:08 Labs: Laboratory Last Values WBC 14.6 K/mm3 (4.5-11.0) H 07/30/18 05:08 RBC 2.50 M/mm3 (3.65-5.03) L 07/30/18 05:08 Hgb 8.0 gm/dl (10.1-14.3) L 07/30/18 08:42 Hct 24.9 % (30.3-42.9) L 07/30/18 08:42 MCV 84 fl (79-97) 07/30/18 05:08 MCH 27 pg (28-32) L 07/30/18 05:08 MCHC 32 % (30-34) 07/30/18 05:08 RDW 15.2 % (13.2-15.2) 07/30/18 05:08 Plt Count 257 K/mm3 (140-440) 07/30/18 05:08 Lymph % (Auto) 9.0 % (13.4-35.0) L 07/28/18 20:35 [place] % (Auto) 9.2 % (0.0-7.3) H 07/28/18 20:35 Eos % (Auto) 0.3 % (0.0-4.3) 07/28/18 20:35 Baso % (Auto) 0.5 % (0.0-1.8) 07/28/18 20:35 Lymph # 1.3 K/mm3 (1.2-5.4) 07/28/18 20:35 [place] # 1.4 K/mm3 (0.0-0.8) H 07/28/18 20:35 Eos # 0.1 K/mm3 (0.0-0.4) 07/28/18 20:35 Baso # 0.1 K/mm3 (0.0-0.1) 07/28/18 20:35 Seg Neutrophils % 81.0 % (40.0-70.0) H 07/28/18 20:35 Seg Neutrophils # 12.0 K/mm3 (1.8-7.7) H 07/28/18 20:35 APTT 27.9 Sec. (24.2-36.6) 07/28/18 20:35 Sodium 147 mmol/L (137-145) H D 07/30/18 05:08 Potassium 3.2 mmol/L (3.6-5.0) L D 07/30/18 05:08 Chloride 109.1 mmol/L (98-107) H 07/30/18 05:08 Carbon Dioxide 24 mmol/L (22-30) 07/30/18 05:08 Anion Gap 17 mmol/L 07/30/18 05:08 BUN 16 mg/dL (7-17) 07/30/18 05:08 Creatinine 0.5 mg/dL (0.7-1.2) L 07/30/18 05:08 Estimated GFR > 60 ml/min 07/30/18 05:08 BUN/Creatinine Ratio 32 % 07/30/18 05:08 Glucose 173 mg/dL (65-100) H 07/30/18 05:08 POC Glucose 131 (70-105) H 07/30/18 16:51 Lactic Acid 1.50 mmol/L (0.7-2.0) 07/29/18 06:55 Calcium 8.9 mg/dL (8.4-10.2) 07/30/18 05:08 Total Bilirubin 0.40 mg/dL (0.1-1.2) 07/28/18 20:35 AST 44 units/L (5-40) H 07/28/18 20:35 ALT 14 units/L (7-56) 07/28/18 20:35 Alkaline Phosphatase 111 units/L (35-129) 07/28/18 20:35 Troponin T 0.047 ng/mL (0.00-0.029) H 07/28/18 20:35 Total Protein 9.2 g/dL (6.3-8.2) H 07/28/18 20:35 Albumin 3.1 g/dL (3.9-5) L 07/28/18 20:35 Albumin/Globulin Ratio 0.5 % 07/28/18 20:35 Triglycerides 84 mg/dL (2-149) 07/28/18 20:35 Cholesterol 138 mg/dL (50-199) 07/28/18 20:35 LDL Cholesterol Direct 86 mg/dL (50-130) 07/28/18 20:35 HDL Cholesterol 51 mg/dL (40-59) 07/28/18 20:35 Cholesterol/HDL Ratio 2.70 % 07/28/18 20:35 Urine Color Yellow (Yellow) 07/28/18 22:04 Urine Turbidity Clear (Clear) 07/28/18 22:04 Urine pH 7.0 (5.0-7.0) 07/28/18 22:04 Ur Specific [place] 1.013 (1.003-1.030) 07/28/18 22:04 Urine Protein <15 mg/dl mg/dL (Negative) 07/28/18 22:04 Urine Glucose (UA) Neg mg/dL (Negative) 07/28/18 22:04 Urine Ketones Neg mg/dL (Negative) 07/28/18 22:04 Urine Blood Neg (Negative) 07/28/18 22:04 Urine Nitrite Neg (Negative) 07/28/18 22:04 Urine Bilirubin Neg (Negative) 07/28/18 22:04 Urine Urobilinogen < 2.0 mg/dL (<2.0) 07/28/18 22:04 Ur Leukocyte Esterase Neg (Negative) 07/28/18 22:04 Urine WBC (Auto) 2.0 /HPF (0.0-6.0) 07/28/18 22:04 Urine RBC (Auto) 6.0 /HPF (0.0-6.0) 07/28/18 22:04 U Epithel Cells (Auto) 12.0 /HPF (0-13.0) 07/28/18 22:04 Urine Mucus Few /HPF 07/28/18 22:04 Influenza A (Rapid) Negative (Negative) 07/28/18 22:03 Influenza B (Rapid) Negative (Negative) 07/28/18 22:03 Blood Type B POSITIVE 07/30/18 08:45 Antibody Screen Negative 07/30/18 08:45 Crossmatch See Detail 07/30/18 08:45 Nutrition/Malnutrition Assess - Dietary Evaluation Nutrition/Malnutrition Findings: Nutrition Notes Start: 07/29/18 17:33 Freq: Status: Active Protocol: Document 07/29/18 17:33 LOI (Rec: 07/29/18 17:41 LOI [id number]) Nutrition Notes Need for Assessment generated from: MD Order Initial or Follow up Assessment Current Diagnosis Decubitus(Pressure Ulcer) Sepsis Hypertension Stroke Current Diet No diet ordered Labs/Tests POC Glu: 180, 211 Pertinent Medications Megace Height 5 ft 5 in Weight 100 kg [place] Body Weight (lbs) 125.0 BMI 36.6 Weight Status Obese Subjective/Other Information RD consulted for TF. She is from [place]. Burn Absent Trauma Absent #1 Nutrition Diagnosis Inadequate oral intake Etiology Dementia As Evidenced by Signs and Symptoms pt NPO and requires EN support to meet nutrient needs Is patient on ventilator? No Is Patient Ambulatory and/or Out of Bed No REE-([facility]-confined to bed) 1818.768 Kcal/Kg value to use for calculation 14 Approximate Energy Requirements Using 1400 kcal/Kg Calculation Used for Recommendations Kcal/kg Additional Notes Pro needs 1.25-1.5g/kg adjBW: 98-118g/day Fluid needs 1ml/kcal Nutrition Intervention Nutrition Support: Glucerna 1.2 at 55ml/hr. Provide 90ml water flush q4h. Kcal 1,584 Protein (gm) 79 Fluid (mL) 1,063 Goal #1 TF tolerance Goal #2 TF to meet at least 80% energy and pro needs Goal #3 Wound healing Anticipated Discharge Needs: Continue TF Follow-Up By: 07/31/18 Additional Comments F/U: new TF
[2018-07-30] MEDS: ARICEPT PO SCH (21:47)
[2018-07-31] MEDS: NACL 0.9% 1000 ML 1,000 ML IV SCH (01:26)
[2018-07-31] MEDS: ZOSYN/NS 4.5GM/100ML 4.5 GM/100 ML VIAL IV SCH ×3 (05:18→21:40)
[2018-07-31 06:00] LABS: Red Blood Count 2.63 M/mm3 (3.65-5.03)
[2018-07-31 06:01] LABS: Basophils % (Auto) 0.3 % (0.0-1.8); Eosinophils # (Auto) 0.3 K/mm3 (0.0-0.4); Eosinophils % (Auto) 2.2 % (0.0-4.3); Hematocrit 22.3 % (30.3-42.9); Hemoglobin 7.2 gm/dl (10.1-14.3); Lymphocytes # (Auto) 2.2 K/mm3 (1.2-5.4); Lymphocytes % (Auto) 15.5 % (13.4-35.0); Mean Corpuscular HGB Conc 32 % (30-34); Mean Corpuscular Volume 85 fl (79-97); Monocytes # (Auto) 1.3 K/mm3 (0.0-0.8); Monocytes % (Auto) 9.2 % (0.0-7.3); Platelet Count 282 K/mm3 (140-440); Red Cell Distribution Width 15.3 % (13.2-15.2)
[2018-07-31 06:23] LABS: BUN/Creatinine Ratio 26; Blood Urea Nitrogen 13 mg/dL (7-17); Calcium 8.3 mg/dL (8.4-10.2); Hemolysis Index 1
[2018-07-31] MEDS ORDERED: POTASSIUM CHLORIDE FEEDTUBE ONE (08:09)
--- NOTE | 2018-07-31 08:12 | Progress Note ---
Assessment and Plan Assessment and plan: Patient is a 72-year-old female presents to the emergency department from [facility] with suspected sepsis. Prior to the fever and tachycardia the patient had fell out of bed and is unknown how that happened considering that she is a quadriplegic. In any case she has a baseline of dementia mental status of occasionally calling out and/or withdrawing from painful stimuli but otherwise mostly does not follow commands. X-ray of the pelvis was read by radiology as concern for a chronic right hip fracture. Chest x-ray did not show any acute process. Urinalysis was negative for UTI. Patient was negative for influenza. She was started empirically on some Rocephin. CT head. 1. No evidence of acute infarct or intracranial hemorrhage. 2. White matter lucency consistent with advanced chronic microvascular ischemic disease. 3. Fluid or cerumen in the left external auditory canal 4. Opacification of the left middle ear and mastoid air cells may be due to chr onic otitis media and mastoiditis. Sepsis - On IV Levaquin and Zosyn - Patient is still shooting fever Heel ulcer and sacral, stage IV right hip ulcer -Surgery was consulted and did debridement Quadriplegia - Supportive care Anemia of chronic disease - Hemoglobin this morning was 7.2 - We'll monitor Lactic acidemia Vegetative state - The Port-A-Cath care Patient has poor prognosis and Dr Rivas discussed with family. DVT and GI prophylaxis Disposition - will discharge the patient back to SNF once sepsis is resolved. History Interval history: Patient was seen and developed this morning, patient is febrile, noncommunicative, in vegetative state. Hospitalist Physical - Physical exam Narrative exam: Not in cardiopulmonary distress. The patient appeared well nourished and normally developed. Vital signs as documented. Head exam is unremarkable. No scleral icterus . Neck is without jugular venous distension, thyromegaly, or carotid bruits. Lungs are clear to auscultation. Cardiac exam reveals regular rate and Rhythm. Abdominal exam reveals normal bowel sounds. 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 - Constitutional Vitals: Temp Pulse Resp BP Pulse Ox 99.0 F 90 20 150/88 97 07/30/18 19:31 07/30/18 22:00 07/30/18 22:00 07/30/18 19:31 07/30/18 22:00 Results - Labs CBC & Chem 7: 07/31/18 05:13 07/31/18 05:13 Labs: Laboratory Last Values WBC 14.2 K/mm3 (4.5-11.0) H 07/31/18 05:13 RBC 2.63 M/mm3 (3.65-5.03) L 07/31/18 05:13 Hgb 7.2 gm/dl (10.1-14.3) L 07/31/18 05:13 Hct 22.3 % (30.3-42.9) L 07/31/18 05:13 MCV 85 fl (79-97) 07/31/18 05:13 MCH 27 pg (28-32) L 07/31/18 05:13 MCHC 32 % (30-34) 07/31/18 05:13 RDW 15.3 % (13.2-15.2) H 07/31/18 05:13 Plt Count 282 K/mm3 (140-440) 07/31/18 05:13 Lymph % (Auto) 15.5 % (13.4-35.0) 07/31/18 05:13 [place] % (Auto) 9.2 % (0.0-7.3) H 07/31/18 05:13 Eos % (Auto) 2.2 % (0.0-4.3) 07/31/18 05:13 Baso % (Auto) 0.3 % (0.0-1.8) 07/31/18 05:13 Lymph # 2.2 K/mm3 (1.2-5.4) 07/31/18 05:13 Hughes # 1.3 K/mm3 (0.0-0.8) H 07/31/18 05:13 Eos # 0.3 K/mm3 (0.0-0.4) 07/31/18 05:13 Baso # 0.0 K/mm3 (0.0-0.1) 07/31/18 05:13 Seg Neutrophils % 72.8 % (40.0-70.0) H 07/31/18 05:13 Seg Neutrophils # 10.3 K/mm3 (1.8-7.7) H 07/31/18 05:13 APTT 27.9 Sec. (24.2-36.6) 07/28/18 20:35 Sodium 151 mmol/L (137-145) H 07/31/18 05:13 Potassium 3.4 mmol/L (3.6-5.0) L 07/31/18 05:13 Chloride 113.0 mmol/L (98-107) H 07/31/18 05:13 Carbon Dioxide 23 mmol/L (22-30) 07/31/18 05:13 Anion Gap 18 mmol/L 07/31/18 05:13 BUN 13 mg/dL (7-17) 07/31/18 05:13 Creatinine 0.5 mg/dL (0.7-1.2) L 07/31/18 05:13 Estimated GFR > 60 ml/min 07/31/18 05:13 BUN/Creatinine Ratio 26 % 07/31/18 05:13 Glucose 152 mg/dL (65-100) H 07/31/18 05:13 POC Glucose 140 (70-105) H 07/30/18 22:15 Lactic Acid 1.50 mmol/L (0.7-2.0) 07/29/18 06:55 Calcium 8.3 mg/dL (8.4-10.2) L 07/31/18 05:13 Total Bilirubin 0.40 mg/dL (0.1-1.2) 07/28/18 20:35 AST 44 units/L (5-40) H 07/28/18 20:35 ALT 14 units/L (7-56) 07/28/18 20:35 Alkaline Phosphatase 111 units/L (35-129) 07/28/18 20:35 Troponin T 0.047 ng/mL (0.00-0.029) H 07/28/18 20:35 Total Protein 9.2 g/dL (6.3-8.2) H 07/28/18 20:35 Albumin 3.1 g/dL (3.9-5) L 07/28/18 20:35 Albumin/Globulin Ratio 0.5 % 07/28/18 20:35 Triglycerides 84 mg/dL (2-149) 07/28/18 20:35 Cholesterol 138 mg/dL (50-199) 07/28/18 20:35 LDL Cholesterol Direct 86 mg/dL (50-130) 07/28/18 20:35 HDL Cholesterol 51 mg/dL (40-59) 07/28/18 20:35 Cholesterol/HDL Ratio 2.70 % 07/28/18 20:35 Urine Color Yellow (Yellow) 07/28/18 22:04 Urine Turbidity Clear (Clear) 07/28/18 22:04 Urine pH 7.0 (5.0-7.0) 07/28/18 22:04 Ur Specific [place] 1.013 (1.003-1.030) 07/28/18 22:04 Urine Protein <15 mg/dl mg/dL (Negative) 07/28/18 22:04 Urine Glucose (UA) Neg mg/dL (Negative) 07/28/18 22:04 Urine Ketones Neg mg/dL (Negative) 07/28/18 22:04 Urine Blood Neg (Negative) 07/28/18 22:04 Urine Nitrite Neg (Negative) 07/28/18 22:04 Urine Bilirubin Neg (Negative) 07/28/18 22:04 Urine Urobilinogen < 2.0 mg/dL (<2.0) 07/28/18 22:04 Ur Leukocyte Esterase Neg (Negative) 07/28/18 22:04 Urine WBC (Auto) 2.0 /HPF (0.0-6.0) 07/28/18 22:04 Urine RBC (Auto) 6.0 /HPF (0.0-6.0) 07/28/18 22:04 U Epithel Cells (Auto) 12.0 /HPF (0-13.0) 07/28/18 22:04 Urine Mucus Few /HPF 07/28/18 22:04 Influenza A (Rapid) Negative (Negative) 07/28/18 22:03 Influenza B (Rapid) Negative (Negative) 07/28/18 22:03 Blood Type B POSITIVE 07/30/18 08:45 Antibody Screen Negative 07/30/18 08:45 Crossmatch See Detail 07/30/18 08:45 Nutrition/Malnutrition Assess - Dietary Evaluation Nutrition/Malnutrition Findings: Nutrition Notes Start: 07/29/18 17:33 Freq: Status: Active Protocol: Document 07/29/18 17:33 LOI (Rec: 07/29/18 17:41 LOI [id number] [email or web address]) Nutrition Notes Need for Assessment generated from: MD Order Initial or Follow up Assessment Current Diagnosis Decubitus(Pressure Ulcer) Sepsis Hypertension Stroke Current Diet No diet ordered Labs/Tests POC Glu: 180, 211 Pertinent Medications Megace Height 5 ft 5 in Weight 100 kg [place] Body Weight (lbs) 125.0 BMI 36.6 Weight Status Obese Subjective/Other Information RD consulted for TF. She is from [place]. Burn Absent Trauma Absent #1 Nutrition Diagnosis Inadequate oral intake Etiology Dementia As Evidenced by Signs and Symptoms pt NPO and requires EN support to meet nutrient needs Is patient on ventilator? No Is Patient Ambulatory and/or Out of Bed No REE-([facility]-confined to bed) 1818.768 Kcal/Kg value to use for calculation 14 Approximate Energy Requirements Using 1400 kcal/Kg Calculation Used for Recommendations Kcal/kg Additional Notes Pro needs 1.25-1.5g/kg adjBW: 98-118g/day Fluid needs 1ml/kcal Nutrition Intervention Nutrition Support: Glucerna 1.2 at 55ml/hr. Provide 90ml water flush q4h. Kcal 1,584 Protein (gm) 79 Fluid (mL) 1,063 Goal #1 TF tolerance Goal #2 TF to meet at least 80% energy and pro needs Goal #3 Wound healing Anticipated Discharge Needs: Continue TF Follow-Up By: 07/31/18 Additional Comments F/U: new TF
[2018-07-31] MEDS: LEVAQUIN 750MG/150ML 750 MG/150 ML BAG IV SCH (09:21)
[2018-07-31] MEDS: HEPARIN SUB-Q SCH ×2 (09:22→21:43)
[2018-07-31] MEDS: MEGACE PO SCH (09:22)
[2018-07-31] MEDS: NAMENDA PO SCH (09:22)
[2018-07-31] MEDS: HCTZ PO SCH (09:27)
[2018-07-31] MEDS: LOPRESSOR PO SCH ×2 (09:27→21:41)
[2018-07-31] MEDS ORDERED: SIMPLE SYRUP FEEDTUBE PRN ×2 (12:23)
[2018-07-31] MEDS ORDERED: PANCREAZE DR 10,500 UNIT FEEDTUBE PRN (12:23)
[2018-07-31] MEDS ORDERED: SODIUM BICARBONATE FEEDTUBE PRN (12:23)
[2018-07-31] MEDS: ARICEPT PO SCH (21:42)
[2018-08-01] MEDS: TYLENOL PO PRN (03:43)
[2018-08-01 05:41] LABS: Hematocrit 23.3 % (30.3-42.9); Hemoglobin 7.5 gm/dl (10.1-14.3)
[2018-08-01 06:08] LABS: BUN/Creatinine Ratio 26; Blood Urea Nitrogen 13 mg/dL (7-17); Calcium 8.4 mg/dL (8.4-10.2); Hemolysis Index 2
[2018-08-01] MEDS: ZOSYN/NS 4.5GM/100ML 4.5 GM/100 ML VIAL IV SCH ×3 (08:02→21:00)
[2018-08-01] MEDS: HEPARIN SUB-Q SCH ×2 (09:49→22:48)
[2018-08-01] MEDS: LEVAQUIN 750MG/150ML 750 MG/150 ML BAG IV SCH (09:49)
[2018-08-01] MEDS: MEGACE PO SCH (09:50)
[2018-08-01] MEDS: NAMENDA PO SCH (09:51)
[2018-08-01] MEDS: LOPRESSOR PO SCH ×2 (09:55→22:48)
[2018-08-01] MEDS ORDERED: POTASSIUM CHLORIDE FEEDTUBE ONE (10:00)
--- NOTE | 2018-08-01 10:53 | Query- Debridement ---
Carlito Benitez Albertina Date: 08/01/18 Chart Reader/CDS:___josé miguel Phone#: [phone] Exercise your independent professional judgment when responding to query. Questions asked do not imply a particular answer is desired or expected. We greatly appreciate your clarification on this issue. Clinical Documentation States: Date of procedure: 07/30/18 Pre-op diagnosis: necrotic right hip wound Procedure: excisional debridement necrotic right hip wound Surgeon: ALBER GENAO Predebridement measurements: [id number] Post debridement measurements: 6cm x5cm x 5.5cm (lxwxd) Because there is documentation in the medical record of Debridement, clarification is needed. Please document whether this is Excisional or Nonexcisional Debridement of the wound, infection or burn. Specific type of debridement performed: [ ] Excisional: The removal of necrotic, devitalized tissue or slough by means of cutting away of tissue (the use of scissors, scalpel or curette are common). [ ] Nonexcisional: The removal of necrotic, devitalized tissue or slough by means of flushing, brushing or washing (irrigating). Please document the depth of tissue removed (i.e., skin, fascia, muscle or bone): [ ] Skin [ ] Fascia [ ] Muscle [ ] Bone Please document the appropriate type of Debridement within the progress notes or on this form as an addendum to the patients record. (Sign and date all documentation) SARAH
[2018-08-01] MEDS: HCTZ PO SCH (10:54)
--- NOTE | 2018-08-01 11:46 | Consultation ---
History of Present Illness - Reason for Consult Consult date: 08/01/18 Persistent fever, sepsis Requesting physician: SAYRA RAYMUNDO - History of Present Illness The patient is a 72-year-old female with dementia, hypertension, bedbound status, quadriplegia, fdc resident was brought to the hospital on 07/28/2018 after she apparently fell out of bed while being moved. Here, she was noted to have a fever of 100.2F and leukocytosis. Patient was admitted to the hospital and was noted to have a necrotic right hip wound. General surgery was consulted and the patient underwent a bedside debridement. She received IV fluids and empiric IV antibiotics: Levofloxacin and Zosyn. She continues to have persistent fevers and hence infectious diseases was consulted. Patient is completely nonverbal, unable to provide history. History was obtained by chart review. Past History Past Medical History: hypertension, other (dementia, bedbound) Past Surgical History: Other (unknown) Social history: no significant social history, other (lives in fdc) Family history: no significant family history Medications and Allergies Allergies Allergy/AdvReac Type Severity Reaction Status Date / Time No Known Allergies Allergy Unverified 09/25/16 07:28 Home Medications Medication Instructions Recorded Confirmed Last Taken Type Bisacodyl [Dulcolax suppos] 10 mg [place] QDAY PRN #20 supp.rect 10/24/16 07/30/18 Unknown Rx Donepezil [Aricept] 5 mg PO QHS #30 tablet 10/24/16 07/30/18 Unknown Rx Megestrol [Megace] 400 mg PO QDAY #30 oral.liqd 10/24/16 07/30/18 Unknown Rx Memantine Xr [Namenda Xr] 7 mg PO QDAY #30 cap 10/24/16 07/30/18 Unknown Rx Metoprolol [Lopressor TAB] 25 mg PO BID #60 tablet 10/24/16 07/30/18 Unknown Rx hydroCHLOROthiazide [HCTZ] 12.5 mg PO QDAY #30 capsule 10/24/16 07/30/18 Unknown Rx levoFLOXacin [Levaquin TAB] 500 mg PO QDAY #5 tablet 10/24/16 07/30/18 Unknown Rx Lipase/Protease/Amylase [Pancreaze 1 each FEEDTUBE PRN PRN #30 capsule 10/27/16 07/30/[address] 10,500 Unit] Simple Syrup 15 ml FEEDTUBE PRN PRN #30 10/27/16 07/30/18 Unknown Rx oral.liqd Sodium Bicarbonate 325 mg FEEDTUBE PRN PRN #30 tablet 10/27/16 07/30/18 Unknown Rx Active Meds: Active Medications Acetaminophen (Tylenol) 650 mg PO Q4H PRN PRN Reason: Fever >101 Last Admin: 08/01/18 03:43 Dose: 650 mg Documented by: Lipase/Protease/Amylase (Frieda Herrmann 10,500 Unit) 1 each FEEDTUBE PRN PRN PRN Reason: For Clogged Feeding Tube Lipase/Protease/Amylase (Frieda Herrmann 10,500 Unit) 1 each FEEDTUBE PRN PRN PRN Reason: For Clogged Feeding Tube Lipase/Protease/Amylase (Frieda Herrmann 10,500 Unit) 1 each FEEDTUBE PRN PRN PRN Reason: For Clogged Feeding Tube Bisacodyl (Dulcolax) 10 mg [place] QDAY PRN PRN Reason: Constipation unrelieved by MOM Donepezil HCl (Aricept) 5 mg PO QHS [facility] Last Admin: 07/31/18 21:42 Dose: 5 mg Documented by: Heparin Sodium (Porcine) (Heparin) 5,000 unit SUB-Q Q12HR [facility] Last Admin: 08/01/18 09:49 Dose: 5,000 unit Documented by: Hydrochlorothiazide (Hctz) 12.5 mg PO QDAY [facility] Last Admin: 08/01/18 10:54 Dose: 12.5 mg Documented by: Levofloxacin/Dextrose (Levaquin 750mg/150ml) 750 mg in 150 mls @ 100 mls/hr IV Q24HR [facility]; Protocol Last Admin: 08/01/18 09:49 Dose: 100 mls/hr Documented by: Piperacillin Sod/Tazobactam Sod (Zosyn/Ns 4.5gm/100ml) 4.5 gm in 100 mls @ 200 mls/hr IV Q8HR [facility] Last Admin: 08/01/18 08:02 Dose: 200 mls/hr Documented by: Megestrol Acetate (Megace) 400 mg PO QDAY [facility] Last Admin: 08/01/18 09:50 Dose: 400 mg Documented by: Memantine (Namenda) 5 mg PO QDAY [facility] Last Admin: 08/01/18 09:51 Dose: 5 mg Documented by: Metoprolol Tartrate (Lopressor) 25 mg PO BID [facility] Last Admin: 08/01/18 09:55 Dose: 25 mg Documented by: Simple Syrup (Simple Syrup) 15 ml FEEDTUBE PRN PRN PRN Reason: Hypoglycemia Simple Syrup (Simple Syrup) 15 ml FEEDTUBE PRN PRN PRN Reason: Hypoglycemia Simple Syrup (Simple Syrup) 30 ml FEEDTUBE PRN PRN PRN Reason: Hypoglycemia Simple Syrup (Simple Syrup) 15 ml FEEDTUBE PRN PRN PRN Reason: Hypoglycemia Simple Syrup (Simple Syrup) 30 ml FEEDTUBE PRN PRN PRN Reason: Hypoglycemia Sodium Bicarbonate (Sodium Bicarbonate) 325 mg FEEDTUBE PRN PRN PRN Reason: For Clogged Feeding Tube Sodium Bicarbonate (Sodium Bicarbonate) 325 mg FEEDTUBE PRN PRN PRN Reason: For Clogged Feeding Tube Sodium Bicarbonate (Sodium Bicarbonate) 325 mg FEEDTUBE PRN PRN PRN Reason: For Clogged Feeding Tube Review of Systems ROS unobtainable: due to mental status Physical Examination - Physical Exam Narrative exam: Physical Exam: Constitutional: Alert. No acute distress Head, Ears, Nose: Normocephalic, atraumatic. External ears, nose normal Eyes: Conjunctivae/corneas clear. No icterus. No ptosis. Neck: Supple, no meningeal signs Oral: dentition fair, no thrush Cardiovascular: S1, S2 normal. Respiratory: Good air entry, clear to auscultation bilaterally GI: Soft, non-tender; bowel sounds normal. No peritoneal signs Musculoskeletal: No pedal edema, no cyanosis. Right hip with woundVAC. Skin: No rash or abscess Hem/Lymphatic: No palpable cervical or supraclavicular nodes. No lymphangitis Psych: no agitation Neurological: Awake, non verbal, quadriparesis - Constitutional Vitals: Vital Signs Temp Pulse Resp BP Pulse Ox 98.6 F 102 H 20 140/68 96 08/01/18 08:15 08/01/18 10:00 08/01/18 08:15 08/01/18 09:55 08/01/18 08:15 Temperature -Last 24 Hours Temperature 98.6 F Temperature 101.5 F Temperature 101.1 F Results - Labs CBC & Chem 7: 08/01/18 05:10 08/01/18 05:10 Labs: Abnormal lab results 07/31/18 08/01/18 08/01/18 Range/Units 18:13 05:10 05:10 Hgb 7.5 L (10.1-14.3) gm/dl Hct 23.3 L (30.3-42.9) % Sodium 146 H (137-145) mmol/L Potassium 3.5 L (3.6-5.0) mmol/L Chloride 109.3 H (98-107) mmol/L Creatinine 0.5 L (0.7-1.2) mg/dL Glucose 146 H (65-100) mg/dL POC Glucose 133 H (70-105) 08/01/18 Range/Units 06:08 Hgb (10.1-14.3) gm/dl Hct (30.3-42.9) % Sodium (137-145) mmol/L Potassium (3.6-5.0) mmol/L Chloride (98-107) mmol/L Creatinine (0.7-1.2) mg/dL Glucose (65-100) mg/dL POC Glucose 174 H (70-105) - Imaging and Cardiology Chest x-ray: report reviewed, image reviewed (Chest x-ray shows no obvious infiltrate) Abdominal x-ray: report reviewed, image reviewed (Pelvic x-ray showed evidence of right greater trochanter fracture suspected to be chronic.) CT Scan - head: report reviewed, image reviewed (CT head showed no acute intracranial abnormalities. Showed opacification of the left mastoid.) Assessment and Plan Cultures: 07/28/2018 Blood culture: No growth 07/28/2018 urine culture: No growth A/P: 72-year-old female with dementia, hypertension, bedbound status, quadriplegia, [facility]dc resident was brought to the hospital on 07/28/2018 after she apparently fell out of bed while being moved. Admitted with: #1 Sepsis: Present on admission, likely secondary to infected decubitus ulcer. Chest x-ray not consistent with any obvious pneumonia. UA and urine culture also not suspicious for UTI. #2 Persistent fevers: Unclear etiology. Source of infection thus far seems to be the right hip necrotic ulcer which has been debrided. She is on broad-spectrum antibiotic coverage, possibly being under dosed with Zosyn, will increase Zosyn dose to 4.5 g every 6 hours for adequate bone penetration. Discontinue levofloxacin. #3 Infected right hip decubitus ulcer: Status post debridement by general surgery down to the level of the bone. Overall prognosis is extremely guarded given her baseline comorbidities. She currently has a wound VAC. We will plan for 4 weeks of IV antibiotics. #4 Acute on chronic encephalopathy with quadriplegia: guarded prognosis. Recs: Discontinued levofloxacin Increased Zosyn dose to 4.5 g every 6 hours Follow-up WBC, fever and clinical response If fever persists, may consider a CT pelvis with IV contrast to evaluate for any hip septic arthritis d/w Dr. Raymundo. MD [facility] C: [phone] O: [phone] F: [phone]
--- NOTE | 2018-08-01 14:10 | Progress Note ---
Assessment and Plan Assessment and plan: Patient is a 72-year-old female presents to the emergency department from [facility] with suspected sepsis. Prior to the fever and tachycardia the patient had fell out of bed and is unknown how that happened considering that she is a quadriplegic. In any case she has a baseline of dementia mental status of occasionally calling out and/or withdrawing from painful stimuli but otherwise mostly does not follow commands. X-ray of the pelvis was read by radiology as concern for a chronic right hip fracture. Chest x-ray did not show any acute process. Urinalysis was negative for UTI. Patient was negative for influenza. She was started empirically on some Rocephin. CT head. 1. No evidence of acute infarct or intracranial hemorrhage. 2. White matter lucency consistent with advanced chronic microvascular ischemic disease. 3. Fluid or cerumen in the left external auditory canal 4. Opacification of the left middle ear and mastoid air cells may be due to chr onic otitis media and mastoiditis. Sepsis - On IV Levaquin and Zosyn - Patient is still shooting fever - If the fever continues ID recommend CT abdomen and pelvis tomorrow Heel ulcer and sacral, stage IV right hip ulcer -Surgery was consulted and did debridement Quadriplegia - Supportive care Anemia of chronic disease - Hemoglobin this morning was 7.2 - We'll monitor Lactic acidemia Vegetative state - The Port-A-Cath care Patient has poor prognosis and Dr Rivas discussed with family. DVT and GI prophylaxis Disposition - will discharge the patient back to SNF once sepsis is resolved. History Interval history: Patient was seen and evaluated this morning, patient is febrile, noncommunicative, in vegetative state. Hospitalist Physical - Physical exam Narrative exam: Not in cardiopulmonary distress. The patient appeared well nourished and normally developed. Vital signs as documented. Head exam is unremarkable. No scleral icterus . Neck is without jugular venous distension, thyromegaly, or carotid bruits. Lungs are clear to auscultation. Cardiac exam reveals regular rate and Rhythm. Abdominal exam reveals normal bowel sounds. 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 - Constitutional Vitals: Temp Pulse Resp BP Pulse Ox 98.6 F 102 H 24 140/68 96 08/01/18 08:15 08/01/18 10:00 08/01/18 10:00 08/01/18 09:55 08/01/18 10:00 Results - Labs CBC & Chem 7: 08/01/18 05:10 08/01/18 05:10 Labs: Laboratory Last Values WBC 14.2 K/mm3 (4.5-11.0) H 07/31/18 05:13 RBC 2.63 M/mm3 (3.65-5.03) L 07/31/18 05:13 Hgb 7.5 gm/dl (10.1-14.3) L 08/01/18 05:10 Hct 23.3 % (30.3-42.9) L 08/01/18 05:10 MCV 85 fl (79-97) 07/31/18 05:13 MCH 27 pg (28-32) L 07/31/18 05:13 MCHC 32 % (30-34) 07/31/18 05:13 RDW 15.3 % (13.2-15.2) H 07/31/18 05:13 Plt Count 282 K/mm3 (140-440) 07/31/18 05:13 Lymph % (Auto) 15.5 % (13.4-35.0) 07/31/18 05:13 [place] % (Auto) 9.2 % (0.0-7.3) H 07/31/18 05:13 Eos % (Auto) 2.2 % (0.0-4.3) 07/31/18 05:13 Baso % (Auto) 0.3 % (0.0-1.8) 07/31/18 05:13 Lymph # 2.2 K/mm3 (1.2-5.4) 07/31/18 05:13 [place] # 1.3 K/mm3 (0.0-0.8) H 07/31/18 05:13 Eos # 0.3 K/mm3 (0.0-0.4) 07/31/18 05:13 Baso # 0.0 K/mm3 (0.0-0.1) 07/31/18 05:13 Seg Neutrophils % 72.8 % (40.0-70.0) H 07/31/18 05:13 Seg Neutrophils # 10.3 K/mm3 (1.8-7.7) H 07/31/18 05:13 APTT 27.9 Sec. (24.2-36.6) 07/28/18 20:35 Sodium 146 mmol/L (137-145) H 08/01/18 05:10 Potassium 3.5 mmol/L (3.6-5.0) L 08/01/18 05:10 Chloride 109.3 mmol/L (98-107) H 08/01/18 05:10 Carbon Dioxide 22 mmol/L (22-30) 08/01/18 05:10 Anion Gap 18 mmol/L 08/01/18 05:10 BUN 13 mg/dL (7-17) 08/01/18 05:10 Creatinine 0.5 mg/dL (0.7-1.2) L 08/01/18 05:10 Estimated GFR > 60 ml/min 08/01/18 05:10 BUN/Creatinine Ratio 26 % 08/01/18 05:10 Glucose 146 mg/dL (65-100) H 08/01/18 05:10 POC Glucose 174 (70-105) H 08/01/18 06:08 Lactic Acid 1.50 mmol/L (0.7-2.0) 07/29/18 06:55 Calcium 8.4 mg/dL (8.4-10.2) 08/01/18 05:10 Total Bilirubin 0.40 mg/dL (0.1-1.2) 07/28/18 20:35 AST 44 units/L (5-40) H 07/28/18 20:35 ALT 14 units/L (7-56) 07/28/18 20:35 Alkaline Phosphatase 111 units/L (35-129) 07/28/18 20:35 Troponin T 0.047 ng/mL (0.00-0.029) H 07/28/18 20:35 Total Protein 9.2 g/dL (6.3-8.2) H 07/28/18 20:35 Albumin 3.1 g/dL (3.9-5) L 07/28/18 20:35 Albumin/Globulin Ratio 0.5 % 07/28/18 20:35 Triglycerides 84 mg/dL (2-149) 07/28/18 20:35 Cholesterol 138 mg/dL (50-199) 07/28/18 20:35 LDL Cholesterol Direct 86 mg/dL (50-130) 07/28/18 20:35 HDL Cholesterol 51 mg/dL (40-59) 07/28/18 20:35 Cholesterol/HDL Ratio 2.70 % 07/28/18 20:35 Urine Color Yellow (Yellow) 07/28/18 22:04 Urine Turbidity Clear (Clear) 07/28/18 22:04 Urine pH 7.0 (5.0-7.0) 07/28/18 22:04 Ur Specific [place] 1.013 (1.003-1.030) 07/28/18 22:04 Urine Protein <15 mg/dl mg/dL (Negative) 07/28/18 22:04 Urine Glucose (UA) Neg mg/dL (Negative) 07/28/18 22:04 Urine Ketones Neg mg/dL (Negative) 07/28/18 22:04 Urine Blood Neg (Negative) 07/28/18 22:04 Urine Nitrite Neg (Negative) 07/28/18 22:04 Urine Bilirubin Neg (Negative) 07/28/18 22:04 Urine Urobilinogen < 2.0 mg/dL (<2.0) 07/28/18 22:04 Ur Leukocyte Esterase Neg (Negative) 07/28/18 22:04 Urine WBC (Auto) 2.0 /HPF (0.0-6.0) 07/28/18 22:04 Urine RBC (Auto) 6.0 /HPF (0.0-6.0) 07/28/18 22:04 U Epithel Cells (Auto) 12.0 /HPF (0-13.0) 07/28/18 22:04 Urine Mucus Few /HPF 07/28/18 22:04 Influenza A (Rapid) Negative (Negative) 07/28/18 22:03 Influenza B (Rapid) Negative (Negative) 07/28/18 22:03 Blood Type B POSITIVE 07/30/18 08:45 Antibody Screen Negative 07/30/18 08:45 Crossmatch See Detail 07/30/18 08:45 Nutrition/Malnutrition Assess - Dietary Evaluation Nutrition/Malnutrition Findings: Nutrition Notes Start: 07/29/18 17:33 Freq: Status: Active Protocol: Document 07/31/18 12:17 LOI (Rec: 07/31/18 12:23 [facility] SRW- [email or web address]) Nutrition Notes Initial or Follow up Brief Note Current Diet TF - Glucerna 1.2 at 55ml/hr Labs/Tests Na 151 K 3.4 BG 152 Height 5 ft 5 in Weight 91.09 kg [place] Body Weight (lbs) 125.0 BMI 33.4 Weight change and time frame Current wt obtained from bed scale Subjective/Other Information TF infusing at goal rate. Is patient on ventilator? No Is Patient Ambulatory and/or Out of Bed No REE-([facility]-confined to bed) 4528.375 Calculation Used for Recommendations [facility] Additional Notes Pro needs 1.25-1.5g/kg adjBW: 92-111g/day Fluid needs 1ml/kcal Nutrition Intervention Nutrition Support: Increase goal rate to 60ml/hr for increased pro. Water flush of 100ml q4h. Kcal 1,728 Protein (gm) 86 Fluid (mL) 1,159 Follow-Up By: 08/02/18 Additional Comments F/U: TF goal rate/tolerance, Na lab
[2018-08-01] MEDS ORDERED: LASIX IV ONE (18:20)
[2018-08-01] MEDS: ARICEPT PO SCH (22:48)
[2018-08-02] MEDS: ZOSYN/NS 4.5GM/100ML 4.5 GM/100 ML VIAL IV SCH ×3 (02:29→13:20)
[2018-08-02] MEDS: HEPARIN SUB-Q SCH (09:36)
[2018-08-02] MEDS: LOPRESSOR PO SCH (09:40)
[2018-08-02] MEDS: NAMENDA PO SCH (09:40)
[2018-08-02] MEDS: HCTZ PO SCH (09:40)
[2018-08-02] MEDS: MEGACE PO SCH (09:40)
[2018-08-02 09:53] VITALS: BP 153/77
[2018-08-02 10:15] LABS: Basophils # (Auto) 0.1 K/mm3 (0.0-0.1); Basophils % (Auto) 0.4 % (0.0-1.8); Eosinophils # (Auto) 0.4 K/mm3 (0.0-0.4); Eosinophils % (Auto) 2.8 % (0.0-4.3); Hematocrit 23.5 % (30.3-42.9); Hemoglobin 7.4 gm/dl (10.1-14.3); Lymphocytes % (Auto) 14.5 % (13.4-35.0); Mean Corpuscular HGB Conc 32 % (30-34); Mean Corpuscular Volume 86 fl (79-97); Monocytes # (Auto) 1.2 K/mm3 (0.0-0.8); Monocytes % (Auto) 8.5 % (0.0-7.3); Platelet Count 309 K/mm3 (140-440); Red Blood Count 2.73 M/mm3 (3.65-5.03); Red Cell Distribution Width 15.6 % (13.2-15.2)
[2018-08-02 10:47] LABS: BUN/Creatinine Ratio 28; Blood Urea Nitrogen 17 mg/dL (7-17); Hemolysis Index 0
--- NOTE | 2018-08-02 11:29 | Progress Note ---
Assessment and Plan Cultures: 07/28/2018 Blood culture: No growth 07/28/2018 urine culture: No growth A/P: 72-year-old female with dementia, hypertension, bedbound status, quadriplegia, [facility] resident was brought to the hospital on 07/28/2018 after she apparently fell out of bed while being moved. Admitted with: #1 Sepsis: Present on admission, likely secondary to infected decubitus ulcer. Chest x-ray not consistent with any obvious pneumonia. UA and urine culture also not suspicious for UTI. #2 Persistent fevers: Unclear etiology. Source of infection thus far seems to be the right hip necrotic ulcer which has been debrided. Resolved with increased dose of Zosyn. #3 Infected right hip decubitus ulcer: Status post debridement by general surgery down to the level of the bone. Overall prognosis is extremely guarded given her baseline comorbidities. She currently has a wound VAC. We will plan for 4 weeks of IV antibiotics to treat as acute osteomyelitis. #4 Acute on chronic encephalopathy with quadriplegia: guarded prognosis. Recs: PICC ordered Continue IV Zosyn 4.5 g every 6 hours x 4 weeks from date of debridement (end date: 08/27/2018) CM orders placed, OK to d/c if she remains afebrile and abx arranged at [place] Continue wound care d/w Dr. Valladares and CM. MD [facility] C: [phone] O: [phone] F: [phone] Subjective Date of service: 08/02/18 Interval history: No fever. Non verbal at baseline. Objective - Exam Narrative Exam: Physical Exam: Constitutional: Alert. No acute distress Head, Ears, Nose: Normocephalic, atraumatic. External ears, nose normal Eyes: Conjunctivae/corneas clear. No icterus. No ptosis. Neck: Supple, no meningeal signs Oral: dentition fair, no thrush Cardiovascular: S1, S2 normal. Respiratory: Good air entry, clear to auscultation bilaterally GI: Soft, non-tender; bowel sounds normal. No peritoneal signs. G-tube + Musculoskeletal: No pedal edema, no cyanosis. Right hip with woundVAC. Skin: No rash or abscess Hem/Lymphatic: No palpable cervical or supraclavicular nodes. No lymphangitis Psych: no agitation Neurological: Awake, non verbal, quadriparesis - Constitutional Vitals: Vital Signs Temp Pulse Resp BP Pulse Ox 99.7 F H 108 H 20 153/77 94 08/02/18 07:40 08/02/18 09:40 08/02/18 07:40 08/02/18 09:40 08/02/18 07:40 Temperature -Last 24 Hours Temperature 99.7 F Temperature 97.0 F Temperature 97.2 F - Labs CBC & Chem 7: 08/02/18 09:59 08/02/18 09:59 Labs: Abnormal lab results 08/01/18 08/01/18 08/02/18 Range/Units 11:47 17:46 04:43 WBC (4.5-11.0) K/mm3 RBC (3.65-5.03) M/mm3 Hgb (10.1-14.3) gm/dl Hct (30.3-42.9) % MCH (28-32) pg RDW (13.2-15.2) % Dyer % (Auto) (0.0-7.3) % Dyer # (0.0-0.8) K/mm3 Seg Neutrophils % (40.0-70.0) % Seg Neutrophils # (1.8-7.7) K/mm3 Sodium (137-145) mmol/L Chloride (98-107) mmol/L Creatinine (0.7-1.2) mg/dL Glucose (65-100) mg/dL POC Glucose 192 H 175 H 192 H (70-105) 08/02/18 08/02/18 08/02/18 Range/Units 06:28 09:59 09:59 WBC 14.0 H (4.5-11.0) K/mm3 RBC 2.73 L (3.65-5.03) M/mm3 Hgb 7.4 L (10.1-14.3) gm/dl Hct 23.5 L (30.3-42.9) % MCH 27 L (28-32) pg RDW 15.6 H (13.2-15.2) % Dyer % (Auto) 8.5 H (0.0-7.3) % Dyer # 1.2 H (0.0-0.8) K/mm3 Seg Neutrophils % 73.8 H (40.0-70.0) % Seg Neutrophils # 10.4 H (1.8-7.7) K/mm3 Sodium 149 H (137-145) mmol/L Chloride 111.5 H (98-107) mmol/L Creatinine 0.6 L (0.7-1.2) mg/dL Glucose 182 H (65-100) mg/dL POC Glucose 174 H (70-105)
--- NOTE | 2018-08-02 11:51 | Discharge Summary ---
Providers - Providers Date of Admission: 07/28/18 23:40 Attending physician: SAYRA RAYMUNDO MD 07/29/18 06:00 Consult to Wound/ET Nurse [CONS] Routine Reason For Exam: wound eval 07/29/18 08:17 Consult to Dietitian/Nutrition [CONS] Routine Physician Instructions: Reason For Exam: Reason for Consult: Write/Manage Tube Feeding 07/29/18 14:00 Consult to Physician [CONS] Routine Comment: called answCesar richmond/ usman Consulting Provider: ALBER GENAO Physician Instructions: PLEASE EVALUATE FOR DEBRIDEMENT Reason For Exam: POSSIBLE DEBRIDEMENT RIGHT HIP WOUND 07/30/18 13:55 Physical Therapy Evaluation and Treat [CONS] Routine Comment: Reason For Exam: Debility - SNF placement recommendations 07/30/18 13:58 Occupational Therapy Evaluate and Treat [CONS] Routine Comment: Reason For Exam: Debility - SNF placement recommendations 07/31/18 12:09 Consult to Dietitian/Nutrition [CONS] Routine Physician Instructions: Assess nutrtn needs, initiate, modify, manage TF Reason For Exam: Reason for Consult: Write/Manage Tube Feeding Reason for Consult: Write/Manage Tube Feeding 08/01/18 07:54 Consult to Wound/ET Nurse [CONS] Urgent Reason For Exam: sacral wound 08/01/18 08:06 Consult to Physician [CONS] Routine Comment: Consulting Provider: JUAN MANUEL SMALL Physician Instructions: Reason For Exam: sepsis 08/02/18 11:30 Consult to Case Management [CONS] Stat Services Needed at Discharge: Other Notified:: IV abx, wound care, woundVAC Additional Physician Instructions: [facility] ([facility] O: [phone] F: [phone] OUTPATIENT PARENTERAL ANTIBIOTIC THERAPY (OPAT) ORDERS Diagnoses: Acute osteomyelitis of right hip, Antimicrobial administration: Continue IV Zosyn 4.5 g every 6 hours x 4 weeks from date of debridement (end date: 08/27/2018) - Remove PICC line after last dose unless otherwise instructed. Lines: PICC line Lab monitoring: - CBC with differential, Creatinine, ALT, AST, ESR, CRP once a week every Sunday while on IV antibiotics. Please fax results to [phone] and call [phone] for critical lab results. - ID clinic appointment on 08/20/2018. Please call and make appt. MD [facility] Consult to PICC Line RN [CONS] Stat Reason For Exam: IV abx. PICC line Type Line:: PICC Primary care physician: PIANO MECHANIC APPRENTICE Hospitalization Reason for admission: Sepsis, multiple decubitus ulcer, vegetative state Condition: Poor Pertinent studies: CT head IMPRESSION: 1. No evidence of acute infarct or intracranial hemorrhage. 2. White matter lucency consistent with advanced chronic microvascular ischemic disease. 3. Fluid or cerumen in the left external auditory canal 4. Opacification of the left middle ear and mastoid air cells may be due to chronic otitis media and mastoiditis. X-ray of pelvis IMPRESSION: Transverse fracture through the base of the right greater trochanter suspected to be chronic. Acute fracture is not excluded by plain film. No other fracture identified. Degenerative changes of bilateral hips with prominent heterotopic ossification along the lateral margins of the bilateral hips. Procedures: Debridement of right HIP ulcer. Hospital course: 72-year-old female presented to the emergency department from [facility] with suspected sepsis. Prior to the fever and tachycardia the patient had fell out of bed and is unknown how that happened considering that she is a quadriplegic. In any case she has a baseline of dementia mental status of occasionally calling out and/or withdrawing from painful stimuli but otherwise mostly does not follow commands. X-ray of the pelvis was read by radiology as concern for a chronic right hip fracture. Chest x-ray did not show any acute process. Urinalysis was negative for UTI. Patient was negative for influenza. She was started treatment for sepsis secondary to infected right hip ulcer. ID consulted and recommend to continue IV antibiotic (zosyn) for 4 weeks. General surgery was consulted and did debridement of the wound. Showed stage 4 right hip ulcer. Patient was fever fever for more than 24 hrs. Anemia of chronic illness; which is stable. Discussed with the family at the time of discharge. Patient is in vegetative state. patient discharged back to SNF, PICC line and IV zosyn for 4 weeks arranged by ID and CM. Disposition: DC/TX-03 SNF W [facility] CERT Time spent for discharge: 34 minutes - Discharge Diagnoses (1) Functional quadriplegia Status: Acute (2) Vegetative state Status: Acute (3) Bleeding from right hip wound Status: Acute (4) Lactic acidosis Status: Acute (5) HTN (hypertension) Status: Chronic Qualifiers: Hypertension type: essential hypertension Qualified Code(s): I10 - Essential (primary) hypertension (6) Dementia Status: Acute (7) Neurogenic dysphagia Status: Acute Core Measure Documentation - Palliative Care Palliative Care/ Comfort Measures: Not Applicable - Core Measures Any of the following diagnoses?: none Exam - Physical Exam Narrative exam: Not in cardiopulmonary distress. The patient appeared well nourished and normally developed. Vital signs as documented. Head exam is unremarkable. No scleral icterus . Neck is without jugular venous distension, thyromegaly, or carotid bruits. Lungs are clear to auscultation. Cardiac exam reveals regular rate and Rhythm. Abdominal exam reveals normal bowel sounds, on PEG tube feeding. 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 - Constitutional Vitals: Temp Pulse Resp BP Pulse Ox 99.7 F H 108 H 20 153/77 94 08/02/18 07:40 08/02/18 09:40 08/02/18 07:40 08/02/18 09:40 08/02/18 07:40 Plan Activity: other (Non ambulatory) Weight Bearing Status: Non-Weight Bearing Diet: per dietitian instruction Additional Instructions: F/U at [facility] if no established PCP. Follow up with: PRIMARY MD CARMENZA [Primary Care Provider] - 3-5 Days
--- NOTE | 2018-08-02 15:47 | XRay Report ---
FINAL REPORT EXAM: XR CHEST 1V AP HISTORY: R arm PICC placement TECHNIQUE: One view examination of the chest PRIORS: 07/28/2018 FINDINGS: Stable linear scar left midlung. Oblique patient position limits the examination. Limited examinatio n due to prominent soft tissue attenuation. Atherosclerotic change in the thoracic aorta. Degenerative change in the thoracic spine. There is no visible pulmonary consolidation, pleural effusion, or pneumothorax. Cardiac silhouette size is normal without vascular congestion. IMPRESSION: No evidence of acute cardiopulmonary disease in the visualized chest Stable linear scar left midlung A new right venous catheter is in place with distal tip near the cavoatrial junction region.
== END 2018-08-02 18:20 | DRG 853 ==
LOC: ED 20:09 → 2B-ACE 23:40
PROVIDERS: ADMIT Internal Medicine; ATTEND Internal Medicine
PROC: 0JBL0ZZ Excision of Right Upper Leg Subcutaneous Tissue and Fascia, Open Approach (ICD-10-PCS; principal; 2018-07-30)
PROC: 02HV33Z Insertion of Infusion Device into Superior Vena Cava, Percutaneous Approach (ICD-10-PCS; 2018-08-02)
DX: A41.9 Sepsis, unspecified organism (principal); L89.214 Pressure ulcer of right hip, stage 4; R53.2 Functional quadriplegia; E87.2 Acidosis; G93.40 Encephalopathy, unspecified; M87.9 Osteonecrosis, unspecified; B19.9 Unspecified viral hepatitis without hepatic coma; L89.609 Pressure ulcer of unspecified heel, unspecified stage; I10 Essential (primary) hypertension; F03.90 Unspecified dementia, unspecified severity, without behavioral disturbance, psychotic disturbance, mood disturbance, and anxiety; L89.159 Pressure ulcer of sacral region, unspecified stage; D63.8 Anemia in other chronic diseases classified elsewhere; R13.19 Other dysphagia; Z74.01 Bed confinement status; Z86.73 Personal history of transient ischemic attack (TIA), and cerebral infarction without residual deficits; Z79.899 Other long term (current) drug therapy
CPT/HCPCS: 36415; 70450; 71045; 72125; 72170; 80048; 80053; 80061; 81001; 82140; 82962; 84484; 85014; 85018; 85025; 85027; 85730; 86850; 86900; 86901; 86920; 87040; 87086; 87400; 93005; 93010; G0378; J0696; J1644; J1940; J1956; J2543; J7030; J7040

== ENCOUNTER 2019-02-02 02:07 | Emergency (ER) | payer MEDICARE ==
--- NOTE | 2019-02-02 03:26 | Emergency Department Report ---
ED General Adult HPI - General Chief complaint: Tube Replacement Stated complaint: DISPLACED G TUBE Time Seen by Provider: 02/02/19 03:03 Source: EMS Mode of arrival: Stretcher Limitations: Physical Limitation - History of Present Illness Initial comments: 73 y.o female with history of sacral decubitus ulcer who lives in a [facility] and is DO NOT RESUSCITATE presents after she had dislodgment of her PEG tube. Patient sent over by EMS who states [facility] does not know how long the PEG tube had been dislodged. The patient otherwise was not sent to the emergency room with any other complaint. Patient is baseline nonverbal. - Related Data Previous Rx's Medication Instructions Recorded Last Taken Type Bisacodyl [Dulcolax suppos] 10 mg [place] QDAY PRN #20 supp.rect 10/24/16 Unknown Rx Donepezil [Aricept] 5 mg PO QHS #30 tablet 10/24/16 Unknown Rx Megestrol [Megace] 400 mg PO QDAY #30 oral.liqd 10/24/16 Unknown Rx Memantine Xr [Namenda Xr] 7 mg PO QDAY #30 cap 10/24/16 Unknown Rx Metoprolol [Lopressor TAB] 25 mg PO BID #60 tablet 10/24/16 Unknown Rx hydroCHLOROthiazide [HCTZ] 12.5 mg PO QDAY #30 capsule 10/24/16 Unknown Rx Lipase/Protease/Amylase [Pancreaze 1 each FEEDTUBE PRN PRN #30 capsule 10/27/[address] 10,500 Unit] Simple Syrup 15 ml FEEDTUBE PRN PRN #30 10/27/16 Unknown Rx oral.liqd Sodium Bicarbonate 325 mg FEEDTUBE PRN PRN #30 tablet 10/27/16 Unknown Rx Allergies Allergy/AdvReac Type Severity Reaction Status Date / Time No Known Allergies Allergy Unverified 09/25/16 07:28 ED Review of Systems ROS: Stated complaint: DISPLACED G TUBE Other details as noted in HPI Comment: Unobtainable due to pts medical conditions ED Past Medical Hx - Past Medical History Previous Medical History?: Yes Hx Hypertension: Yes Hx Deep Vein Thrombosis: No Hx Dementia: Yes Hx HIV: No Additional medical history: Quadriplegic - Surgical History Hx Pacemaker: No Hx Internal Defibrillator: No Additional Surgical History: unknown - Social History Smoking Status: Unknown if ever smoked - Medications Home Medications: Home Medications Medication Instructions Recorded Confirmed Last Taken Type Bisacodyl [Dulcolax suppos] 10 mg [place] QDAY PRN #20 supp.rect 10/24/16 07/30/18 Unknown Rx Donepezil [Aricept] 5 mg PO QHS #30 tablet 10/24/16 07/30/18 Unknown Rx Megestrol [Megace] 400 mg PO QDAY #30 oral.liqd 10/24/16 07/30/18 Unknown Rx Memantine Xr [Namenda Xr] 7 mg PO QDAY #30 cap 10/24/16 07/30/18 Unknown Rx Metoprolol [Lopressor TAB] 25 mg PO BID #60 tablet 10/24/16 07/30/18 Unknown Rx hydroCHLOROthiazide [HCTZ] 12.5 mg PO QDAY #30 capsule 10/24/16 07/30/18 Unknown Rx Lipase/Protease/Amylase [Pancreaze 1 each FEEDTUBE PRN PRN #30 capsule 10/27/16 07/30/18 Unknown Rx 10,500 Unit] Simple Syrup 15 ml FEEDTUBE PRN PRN #30 10/27/16 07/30/18 Unknown Rx oral.liqd Sodium Bicarbonate 325 mg FEEDTUBE PRN PRN #30 tablet 10/27/16 07/30/18 Unknown Rx ED Physical Exam - General Limitations: Physical Limitation General appearance: other (non verbal; dehydrated) - Head Head exam: Present: atraumatic, normocephalic - ENT ENT exam: Present: mucous membranes dry - Neck Neck exam: Present: normal inspection - Respiratory Respiratory exam: Present: other (coarse breath sounds bilaterally). Absent: respiratory distress - Cardiovascular Cardiovascular Exam: Present: regular rate, normal rhythm. Absent: systolic murmur, diastolic murmur, rubs, gallop - GI/Abdominal GI/Abdominal exam: Present: soft, normal bowel sounds, other (PEG tube shows no evidence of active erythema or exudate) - Extremities Exam Extremities exam: Present: normal inspection - Back Exam Back exam: Present: normal inspection - Neurological Exam Neurological exam: Present: alert, oriented X3 - Psychiatric Psychiatric exam: Present: normal affect, normal mood - Skin Skin exam: Present: other (stage IV decubitus ulcer ). Absent: rash ED Course Vital Signs 02/02/19 02/02/19 02/02/19 02:36 03:00 04:51 Temperature 99.3 F Pulse Rate 95 H 95 H Respiratory 20 20 20 Rate Blood Pressure 174/74 Blood Pressure 137/77 [Left] O2 Sat by Pulse 100 100 100 Oximetry 02/02/19 05:30 Temperature 99.1 F Pulse Rate 96 H Respiratory 20 Rate Blood Pressure Blood Pressure 140/78 [Left] O2 Sat by Pulse 100 Oximetry ED Medical Decision Making - Medical Decision Making 16 Pakistani PEG tube was placed while patient was in the ER. Return of gastric contents were noted.PEG tube was placed by myself while in the ER. - Differential Diagnosis PEG tube dislodgment Critical care attestation.: If time is entered above; I have spent that time in minutes in the direct care of this critically ill patient, excluding procedure time. ED Disposition Clinical Impression: PEG tube malfunction Disposition: - TO HOME OR SELFCARE Is pt being admited?: No Does the pt Need Aspirin: No Condition: Stable Instructions: How to Use and Care for Your PEG Tube (ED) Referrals: PRIMARY MD CARMENZA [Primary Care Provider] - 3-5 Days LINH NUR MD [Staff Physician] - 3-5 Days Time of Disposition: 05:10 Print Language: JAPANESE
--- NOTE | 2019-02-02 04:07 | XRay Report ---
CHEST 1 VIEW 02/02/2019 3:34 AM INDICATION / CLINICAL INFORMATION: SOB. COMPARISON: None available. FINDINGS: SUPPORT DEVICES: None. HEART / MEDIASTINUM: No significant abnormality. LUNGS / PLEURA: Lung volumes are reduced with mild bibasilar atelectasis. No additional significant p ulmonary abnormality. No significant pleural effusion. No pneumothorax. ADDITIONAL FINDINGS: No significant additional findings. IMPRESSION: Low lung volumes with mild bibasilar atelectasis. Signer Name: Ryan Wills MD Signed: 02/02/2019 4:03 AM Workstation Name: [id number]
--- NOTE | 2019-02-02 04:39 | XRay Report ---
XR g-tube study INDICATION: G tube check. COMPARISON: No relevant prior imaging study available. FINDINGS: Contrast injected through a previously placed gastrostomy tube opacifies the stomach and small bowel as expected. The bowel gas pattern is nonobstructive. No distinct free air is seen by supine imaging. No additional significant findings. IMPRESSION: Satisfactory positioning of a previously placed gastrostomy tube. No acute findings. Signer Name: Ryan Wills MD Signed: 02/02/2019 4:35 AM Workstation Name: [id number]
[2019-02-02 05:44] VITALS: BP 140/78
== END 2019-02-02 07:33 | disposition home or self-care (01) ==
LOC: ED 02:07
DX: K94.23 Gastrostomy malfunction (principal); I10 Essential (primary) hypertension; F03.90 Unspecified dementia, unspecified severity, without behavioral disturbance, psychotic disturbance, mood disturbance, and anxiety; L89.154 Pressure ulcer of sacral region, stage 4; L89.624 Pressure ulcer of left heel, stage 4; L89.214 Pressure ulcer of right hip, stage 4; Z79.899 Other long term (current) drug therapy
CPT/HCPCS: 43762; 71045; 74018; 99283; Q9963

== ENCOUNTER 2019-02-21 21:10 | Emergency (ER) | payer MEDICARE ==
--- NOTE | 2019-02-21 21:44 | Emergency Department Report ---
ED General Adult HPI - General Chief complaint: Tube Replacement Stated complaint: DISPLACED G TUBE Time Seen by Provider: 02/21/19 21:38 Source: patient Mode of arrival: Stretcher Limitations: Altered Mental Status, Physical Limitation - History of Present Illness Initial comments: Patient is a 73-year-old female that presents emergency room for dislodged G- tube. Patient at baseline but has a decreased level of responsiveness. Patient is nonverbal. Report received from EMS. EMS states that the patient's G-tube fell out 6 hours ago. Patient's paperwork from long term reviewed. Patient has history of vegetative state and minimal responsiveness. -: Sudden Consistency: constant Improves with: none Worsens with: none Treatments Prior to Arrival: none - Related Data Previous Rx's Medication Instructions Recorded Last Taken Type Bisacodyl [Dulcolax suppos] 10 mg [place] QDAY PRN #20 supp.rect 10/24/16 Unknown Rx Donepezil [Aricept] 5 mg PO QHS #30 tablet 10/24/16 Unknown Rx Megestrol [Megace] 400 mg PO QDAY #30 oral.liqd 10/24/16 Unknown Rx Memantine Xr [Namenda Xr] 7 mg PO QDAY #30 cap 10/24/16 Unknown Rx Metoprolol [Lopressor TAB] 25 mg PO BID #60 tablet 10/24/16 Unknown Rx hydroCHLOROthiazide [HCTZ] 12.5 mg PO QDAY #30 capsule 10/24/16 Unknown Rx Lipase/Protease/Amylase [Pancreaze 1 each FEEDTUBE PRN PRN #30 capsule 10/27/16 Unknown Rx 10,500 Unit] Simple Syrup 15 ml FEEDTUBE PRN PRN #30 10/27/16 Unknown Rx oral.liqd Sodium Bicarbonate 325 mg FEEDTUBE PRN PRN #30 tablet 10/27/16 Unknown Rx Allergies Allergy/AdvReac Type Severity Reaction Status Date / Time No Known Allergies Allergy Unverified 09/25/16 07:28 ED Review of Systems ROS: Stated complaint: DISPLACED G TUBE Other details as noted in HPI Comment: Unobtainable due to pts medical conditions ED Past Medical Hx - Past Medical History Previous Medical History?: Yes Hx Hypertension: Yes Hx Deep Vein Thrombosis: No Hx Dementia: Yes Hx HIV: No Additional medical history: Quadriplegic - Surgical History Past Surgical History?: No Hx Pacemaker: No Hx Internal Defibrillator: No Additional Surgical History: unknown - Family History Family history: no significant - Social History Smoking Status: Unknown if ever smoked Substance Use Type: None - Medications Home Medications: Home Medications Medication Instructions Recorded Confirmed Last Taken Type Bisacodyl [Dulcolax suppos] 10 mg [place] QDAY PRN #20 supp.rect 10/24/16 07/30/18 Unknown Rx Donepezil [Aricept] 5 mg PO QHS #30 tablet 10/24/16 07/30/18 Unknown Rx Megestrol [Megace] 400 mg PO QDAY #30 oral.liqd 10/24/16 07/30/18 Unknown Rx Memantine Xr [Namenda Xr] 7 mg PO QDAY #30 cap 10/24/16 07/30/18 Unknown Rx Metoprolol [Lopressor TAB] 25 mg PO BID #60 tablet 10/24/16 07/30/18 Unknown Rx hydroCHLOROthiazide [HCTZ] 12.5 mg PO QDAY #30 capsule 10/24/16 07/30/18 Unknown Rx Lipase/Protease/Amylase [Pancreaze 1 each FEEDTUBE PRN PRN #30 capsule 10/27/16 07/30/[address] 10,500 Unit] Simple Syrup 15 ml FEEDTUBE PRN PRN #30 10/27/16 07/30/18 Unknown Rx oral.liqd Sodium Bicarbonate 325 mg FEEDTUBE PRN PRN #30 tablet 10/27/16 07/30/18 Unknown Rx ED Physical Exam - General Limitations: Altered Mental Status, Physical Limitation General appearance: in no apparent distress, obtunded - Head Head exam: Present: atraumatic, normocephalic - Eye Eye exam: Present: normal appearance, PERRL Pupils: Present: normal accommodation - ENT ENT exam: Present: mucous membranes moist - Neck Neck exam: Present: normal inspection - Respiratory Respiratory exam: Present: normal lung sounds bilaterally. Absent: respiratory distress - Cardiovascular Cardiovascular Exam: Present: regular rate, normal rhythm. Absent: systolic murmur, diastolic murmur, rubs, gallop - GI/Abdominal GI/Abdominal exam: Present: soft, normal bowel sounds, other (gastric stoma noted. No redness or signs of infection.) - Rectal Rectal exam: Present: deferred - Extremities Exam Extremities exam: Present: normal inspection - Back Exam Back exam: Present: normal inspection - Neurological Exam Neurological exam: Present: altered - Skin Skin exam: Present: warm, dry, intact, normal color. Absent: rash ED Course Vital Signs 02/21/19 02/21/19 21:47 22:02 Temperature 98.7 F 98.0 F Pulse Rate 91 H 88 Respiratory 18 17 Rate Blood Pressure 137/64 Blood Pressure 140/53 [Left] O2 Sat by Pulse 99 100 Oximetry - Reevaluation(s) Reevaluation #1: G-tube replaced. Sterile procedure done. See procedure note. 02/21/19 21:58 Reevaluation #2: She is stable for discharge. Patient will be discharged back to her long term. Patient's x-ray shows good placement. 02/21/19 23:08 - Procedure Description Procedures done: Site cleaned and draped in a sterile fashion. Procedure done in a sterile fashion. Patient had a 14 [place]bour[place] tube replaced without complications or difficulties. 3 mL of sterile saline placed in G-tube x-ray will be done to verify placement. Gastric content noted with aspiration. No complications noted. ED Medical Decision Making - Radiology Data Radiology results: report reviewed, image reviewed ABDOMEN 4 VIEW(S) INDICATION / CLINICAL INFORMATION: g tube placement. COMPARISON: Abdominal series from 02/02/2019 FINDINGS: TUBES / LINES: A gastrostomy tube is in place in the left upper quadrant. Tube has been injected with contrast. No contrast extravasation BOWEL GAS PATTERN: No significant abnormality. FREE AIR / EXTRALUMINAL GAS: None seen. ADDITIONAL FINDINGS: Bony remodeling and heterotopic ossification seen about both hips. IMPRESSION: 1. Intraluminal gastrostomy tube with no contrast extravasation. - Medical Decision Making Patient is 73-year-old female presents emergency room for G-tube replacement. Patient's tube was replaced and x-ray was done which verified good placement. Patient will be discharged back to her long term. - Differential Diagnosis tube placement Critical care attestation.: If time is entered above; I have spent that time in minutes in the direct care of this critically ill patient, excluding procedure time. ED Disposition Clinical Impression: Gastrojejunostomy tube dislodgement, Vegetative state Disposition: DC-01 TO HOME OR SELFCARE Is pt being admited?: No Does the pt Need Aspirin: No Condition: Stable Instructions: How to Use and Care for Your PEG Tube (ED), Tube Feeding (ED) Additional Instructions: Patient to be discharged back to her long term. Patient to return to ER if condition worsens. Patient's primary care to follow up with her in 2-3 days. Patient to follow up with GI for further management of her PEG tube within 2-3 days.. Referrals: ABEL CRAVEN MD [Primary Care Provider] - 2-3 Days Time of Disposition: 23:10
[2019-02-21 22:04] VITALS: BP 140/53
--- NOTE | 2019-02-21 22:44 | XRay Report ---
ABDOMEN 4 VIEW(S) INDICATION / CLINICAL INFORMATION: g tube placement. COMPARISON: Abdominal series from 02/02/2019 FINDINGS: TUBES / LINES: A gastrostomy tube is in place in the left upper quadrant. Tube has been injected with contrast. No contrast extravasation BOWEL GAS PATTERN: No significant abnormality. FREE AIR / EXTRALUMINAL GAS: None seen. ADDITIONAL FINDINGS: Bony remodeling and heterotopic ossification seen about both hips. IMPRESSION: 1. Intraluminal gastrostomy tube with no contrast extravasation. Signer Name: Moisés Jean-Baptiste MD Signed: 02/21/2019 10:40 PM Workstation Name: [id number]
== END 2019-02-21 23:15 | disposition home or self-care (01) ==
LOC: ED 21:10
DX: K94.23 Gastrostomy malfunction (principal); I10 Essential (primary) hypertension; R40.3 Persistent vegetative state; Z79.899 Other long term (current) drug therapy
CPT/HCPCS: 43762; 74018; 99283; Q9967; 99282

== ENCOUNTER 2019-04-30 01:21 | Inpatient (IN) | payer MEDICARE ==
[2019-04-30] MEDS ORDERED: NACL 0.9% 500 ML 500 ML IV ONE (02:13)
[2019-04-30] MEDS ORDERED: NACL 0.9% 1000 ML IV ONE (02:21)
[2019-04-30] MEDS ORDERED: VANCOMYCIN 2,000 MG in NACL 0.9% 500 ML 500 ML IV ONE (02:21)
[2019-04-30] MEDS ORDERED: TYLENOL PR ONE (02:23)
--- NOTE | 2019-04-30 02:25 | Emergency Department Report ---
ED General Adult HPI - General Chief complaint: Fever Stated complaint: HIGH TEMP Time Seen by Provider: 04/30/19 02:12 Source: EMS ( EMS documentation not available at time of chart dictation ), RN notes reviewed, old records reviewed Mode of arrival: Stretcher Limitations: Physical Limitation, Other (dementia) - History of Present Illness Initial comments: Patient is demented. The patient is a poor historian. History is obtained by reviewing the patient's medical records, and by speaking to family. The patient is currently a DO NOT RESUSCITATE, DO NOT INTUBATE. Her primary care doctor is Dr. Saroj Phillips. her past history includes dementia sacral wounds sepsis debility functional quadriplegia she is sent from her alf for evaluation of fever, temperature max 104.2. Her last known well time is not known. The patient is awake and the ER but does not follow commands. She arrives with an enclose DO NOT RESUSCITATE, DO NOT INTUBATE. I called up her son, Mr. Akira Waters; [phone], who endorsed over the phone that the patient is indeed DO NOT RESUSCITATE, DO NOT INTUBATE forgoes of care. He is amenable to hospitalization, antibiotic therapy, and supportive care. Patient demented and altered, and cannot describe exacerbating, relieving factors or qualitative nature of her symptoms. She is found to be febrile and tachycardic in the emergency room. -: unknown Quality: other Consistency: other Improves with: other Worsens with: other - Related Data Previous Rx's Medication Instructions Recorded Last Taken Type Bisacodyl [Dulcolax suppos] 10 mg OR QDAY PRN #20 supp.rect 10/24/16 Unknown Rx Donepezil [Aricept] 5 mg PO QHS #30 tablet 10/24/16 Unknown Rx Megestrol [Megace] 400 mg PO QDAY #30 oral.liqd 10/24/16 Unknown Rx Memantine Xr [Namenda Xr] 7 mg PO QDAY #30 cap 10/24/16 Unknown Rx Metoprolol [Lopressor TAB] 25 mg PO BID #60 tablet 10/24/16 Unknown Rx hydroCHLOROthiazide [HCTZ] 12.5 mg PO QDAY #30 capsule 10/24/16 Unknown Rx Lipase/Protease/Amylase [Pancreaze 1 each FEEDTUBE PRN PRN #30 capsule 10/27/16 Unknown Rx 10,500 Unit] Simple Syrup 15 ml FEEDTUBE PRN PRN #30 10/27/16 Unknown Rx oral.liqd Sodium Bicarbonate 325 mg FEEDTUBE PRN PRN #30 tablet 10/27/16 Unknown Rx Allergies Allergy/AdvReac Type Severity Reaction Status Date / Time No Known Allergies Allergy Unverified 09/25/16 07:28 ED Review of Systems ROS: Stated complaint: HIGH TEMP Other details as noted in HPI Comment: Unobtainable due to pts medical conditions ED Past Medical Hx - Past Medical History Hx Hypertension: Yes Hx Deep Vein Thrombosis: No Hx Dementia: Yes Hx HIV: No Additional medical history: Quadriplegic - Surgical History Hx Pacemaker: No Hx Internal Defibrillator: No Additional Surgical History: unknown - Social History Smoking Status: Never Smoker Substance Use Type: None - Medications Home Medications: Home Medications Medication Instructions Recorded Confirmed Last Taken Type Bisacodyl [Dulcolax suppos] 10 mg OR QDAY PRN #20 supp.rect 10/24/16 07/30/18 Unknown Rx Donepezil [Aricept] 5 mg PO QHS #30 tablet 10/24/16 07/30/18 Unknown Rx Megestrol [Megace] 400 mg PO QDAY #30 oral.liqd 10/24/16 07/30/18 Unknown Rx Memantine Xr [Namenda Xr] 7 mg PO QDAY #30 cap 10/24/16 07/30/18 Unknown Rx Metoprolol [Lopressor TAB] 25 mg PO BID #60 tablet 10/24/16 07/30/18 Unknown Rx hydroCHLOROthiazide [HCTZ] 12.5 mg PO QDAY #30 capsule 10/24/16 07/30/18 Unknown Rx Lipase/Protease/Amylase [Pancreaze 1 each FEEDTUBE PRN PRN #30 capsule 10/27/16 07/30/18 Unknown Rx 10,500 Unit] Simple Syrup 15 ml FEEDTUBE PRN PRN #30 10/27/16 07/30/18 Unknown Rx oral.liqd Sodium Bicarbonate 325 mg FEEDTUBE PRN PRN #30 tablet 10/27/16 07/30/18 Unknown Rx ED Physical Exam - General Limitations: Physical Limitation General appearance: other (the patient is listless but arousable) - Head Head exam: Present: atraumatic, normocephalic - Eye Eye exam: Present: normal appearance - ENT ENT exam: Present: mucous membranes dry - Neck Neck exam: Present: normal inspection - Respiratory Respiratory exam: Present: decreased breath sounds. Absent: respiratory distress, rales, rhonchi, stridor - Cardiovascular Cardiovascular Exam: Present: normal rhythm, tachycardia, normal heart sounds. Absent: systolic murmur, diastolic murmur, rubs, gallop - GI/Abdominal GI/Abdominal exam: Present: soft. Absent: distended, tenderness, guarding, rebound, rigid, pulsatile mass - Rectal Rectal exam: Absent: normal inspection (there is a cavernous unstageable 2 x 3 cm sacral wound. There is no pus or streaking.) - External exam: Present: normal external exam (chaperoned by nurse Ольга) - Extremities Exam Extremities exam: Present: other (2+ pulses noted in the upper, lower extremities. Contractures noted in the bilateral upper, lower extremities). Absent: normal inspection (there is a large cavernous right sided hip ulcer, with purulent discharge. There is maceration and ulcer and discharge noted from the left lateral foot, and left medial foot.) - Back Exam Back exam: Present: normal inspection. Absent: paraspinal tenderness - Neurological Exam Neurological exam: Present: altered, other (the patient is nonverbal. The patient's eyes open spontaneously. The patient does not follow commands.) - Psychiatric Psychiatric exam: Present: other (the patient is nonverbal) - Skin Skin exam: Present: warm (skin breakdown and maceration noted on the right hip, sacrum, left medial heel, and left lateral heel. Foul-smelling discharge is noted) ED Course Vital Signs 04/30/19 04/30/19 02:30 03:30 Temperature 101.9 F H Pulse Rate 109 H 101 H Respiratory 18 18 Rate Blood Pressure 132/58 104/55 [Left] O2 Sat by Pulse 95 95 Oximetry - Reevaluation(s) Reevaluation #1: 04/30/19 03:31 Differential diagnosis, including but not limited to: Sepsis, bacteremia, viremia, pneumonia, urinary tract infection, myositis, infected wounds Assessment and plan: 73-year-old female with presumed sepsis secondary to multiple infected wounds. She is febrile and tachycardic. She is DO NOT RESUSCITATE and DO NOT INTUBATE. Family is amenable to IV fluids, and antibiotics. They are amenable to admission hospitalization at this time. Overall long-term prognosis is fairly poor. Screening laboratory studies ordered. X-rays are reviewed and appreciated. Reevaluation #2: 04/30/19 04:38 labs appreciated d/w general surgery Dr Puentes, she will follow in consultation hospital physician paged Reevaluation #3: 04/30/19 04:40 Dr Frank Light accepts to the medical service ED Medical Decision Making - Lab Data Result diagrams: 04/30/19 02:28 04/30/19 03:33 Lab Results 04/30/19 04/30/19 Range/Units 02:28 02:28 WBC 22.9 H (4.5-11.0) K/mm3 RBC 3.72 (3.65-5.03) M/mm3 Hgb 9.9 L (10.1-14.3) gm/dl Hct 30.7 (30.3-42.9) % MCV 83 (79-97) fl MCH 27 L (28-32) pg MCHC 32 (30-34) % RDW 15.8 H (13.2-15.2) % Plt Count 234 (140-440) K/mm3 ESR 120 (0-20) mm/Hr VBG pH 7.435 H (7.320-7.420) - EKG Data -: EKG Interpreted by Id EKG shows normal: sinus rhythm Rate: tachycardia - EKG Data 04/30/19 04:56 EKG shows motion artifact. This is a sinus tachycardia, 104 bpm, left axis deviation, left anterior fascicular block, premature ventricular contractions, atrial enlargement, low voltage, motion artifact. EKG is abnormal. The EKG is not consistent with ST elevation myocardial infarction. - Radiology Data Radiology results: report reviewed, image reviewed Print Report Referring Physician: ASHLEE ANDRADE Patient Name: KB WATERS Date of : 1945 Sex: Female Report Date: 2019-04-30 Report Status: Finalized Findings [facility] [address] [place] [address] XRay Report Signed Patient: KB WATERS MR#: [id number] : 1945 Acct:[id number] Age/Sex: 73 / F ADM Date: 04/30/19 Loc: ED Attending Dr: Ordering Physician: ASHLEE ANDRADE MD Date of Service: 04/30/19 Procedure(s): XR foot 2V LT Accession Number(s): [id number] cc: ASHLEE ANDRADE MD Fluoro Time In Minutes: LEFT FOOT, SINGLE VIEW INDICATION / CLINICAL INFORMATION: infected foot. COMPARISON: None available. FINDINGS: Soft tissue swelling of the mid and distal foot is identified. The fifth metatarsal is indistinct and incompletely visualized. Generalized bony demineralization. No other skeletal abnormality. Signer Name: Akira Orosco MD Signed: 04/30/2019 3:19 AM Workstation Name: [id number] Transcribed By: [place] Dictated By: Akira Orosco MD Electronically Authenticated By: Akira Orosco MD Signed Date/Time: 04/30/19318 DD/ 6 Print Report Referring Physician: ASHLEE ANDRADE Patient Name: KB WATERS Date of : 1945 Sex: Female Report Date: 2019-04-30 Report Status: Finalized Findings [facility] [address] [place] [address] XRay Report Signed Patient: KB WATERS MR#: [id number] : 1945 Acct:[id number] Age/Sex: 73 / F ADM Date: 04/30/19 Loc: ED Attending Dr: Ordering Physician: ASHLEE ANDRADE MD Date of Service: 04/30/19 Procedure(s): XR chest 1V ap Accession Number(s): [id number] cc: ASHLEE ANDRADE MD Fluoro Time In Minutes: CHEST 1 VIEW INDICATION / CLINICAL INFORMATION: possible Sepsis. COMPARISON: 02/02/2019 FINDINGS: SUPPORT DEVICES: None. HEART / MEDIASTINUM: Heart size is normal. There is tortuosity of the thoracic aorta. LUNGS / PLEURA: Linear density in the left lower lung has appearance of atelectasis or scarring. No acute interstitial or airspace pulmonary disease. No pneumothorax. ADDITIONAL FINDINGS: No significant additional findings. IMPRESSION: 1. No acute findings. Signer Name: Akira Orosco MD Signed: 04/30/2019 3:20 AM Workstation Name: [id number] Transcribed By: [place] Dictated By: Akira Orosco MD Electronically Authenticated By: Akira Orosco MD Signed Date/Time: 04/30/19319 DD/ 8 TD/TT: Critical Care Time: Yes Critical care time in (mins) excluding proc time.: 35 Critical care attestation.: If time is entered above; I have spent that time in minutes in the direct care of this critically ill patient, excluding procedure time. ED Disposition Clinical Impression: Functional quadriplegia, SIRS (systemic inflammatory response syndrome) Disposition: DC-09 OP ADMIT IP TO THIS HOSP Is pt being admited?: Yes Condition: Serious Referrals: PRIMARY CARE, [Primary Care Provider] - 3-5 Days
[2019-04-30] MEDS ORDERED: VANCOMYCIN PHARMACY TO DOSE IV SCH (03:00)
[2019-04-30] MEDS ORDERED: ZOSYN/NS 4.5GM/100ML 4.5 GM/100 ML VIAL IV SCH ×2 (03:00→11:00)
--- NOTE | 2019-04-30 03:23 | XRay Report ---
LEFT FOOT, SINGLE VIEW INDICATION / CLINICAL INFORMATION: infected foot. COMPARISON: None available. FINDINGS: Soft tissue swelling of the mid and distal foot is identified. The fifth metatarsal is indistinct and incompletely visualized. Generalized bony demineralization. No other skeletal abnormality. Signer Name: Akira Orosco MD Signed: 04/30/2019 3:19 AM Workstation Name: [id number]
[2019-04-30 03:24] LABS: Hematocrit 30.7 % (30.3-42.9); Hemoglobin 9.9 gm/dl (10.1-14.3); Mean Corpuscular Volume 83 fl (79-97); Red Blood Count 3.72 M/mm3 (3.65-5.03)
--- NOTE | 2019-04-30 03:24 | XRay Report ---
CHEST 1 VIEW INDICATION / CLINICAL INFORMATION: possible Sepsis. COMPARISON: 02/02/2019 FINDINGS: SUPPORT DEVICES: None. HEART / MEDIASTINUM: Heart size is normal. There is tortuosity of the thoracic aorta. LUNGS / PLEURA: Linear density in the left lower lung has appearance of atelectasis or scarring. No acute interstitial or airspace pulmonary disease. No pneumothorax. ADDITIONAL FINDINGS: No significant additional findings. IMPRESSION: 1. No acute findings. Signer Name: Akira Orosco MD Signed: 04/30/2019 3:20 AM Workstation Name: [employer]
[2019-04-30 03:25] LABS: Mean Corpuscular HGB Conc 32 % (30-34); Platelet Count 234 K/mm3 (140-440); Red Cell Distribution Width 15.8 % (13.2-15.2)
[2019-04-30 03:26] LABS: Erythrocyte Sedimentation Rate 120 mm/Hr (0-20)
[2019-04-30 04:27] LABS: Alanine Aminotransferase 9 units/L (7-56); BUN/Creatinine Ratio 54; Blood Urea Nitrogen 27 mg/dL (7-17); Calcium 8.9 mg/dL (8.4-10.2); Hemolysis Index 0
[2019-04-30] MEDS ORDERED: ZOFRAN IV PRN (05:07)
[2019-04-30] MEDS ORDERED: PERCOCET 5/325 PO PRN (05:07)
[2019-04-30 05:38] LABS: INR 1.16 (0.87-1.13)
--- NOTE | 2019-04-30 05:45 | History and Physical Report ---
<ANNIE SALINAS - Last Filed: 04/30/19 06:08> History of Present Illness Date of examination: 04/30/19 Date of admission: 04/30/19 Chief complaint: Acute febrile illness History of present illness: Pt is a 73 year old female with PMHx of HTN, dementia, DM type 2, CVA with contractures deformities, Quadruplegia, and multiple sacral and heels ulcers who was brought to the ER from [facility] for fever and decubitus ulcers. Pt was seen in the ER, she is non-verval, catatonic state and unable to provide any medical history. Most of the history and information was obtained from the pt's record from the rehab. In the ER, pt's temp was 101.9, his WBC was 22.9, she was started in antibiotic and admitted for furthe management. Past History Past Medical History: anemia, diabetes, hypertension, hyperlipidemia, stroke Social history: no significant social history Family history: no significant family history Medications and Allergies Allergies Allergy/AdvReac Type Severity Reaction Status Date / Time No Known Allergies Allergy Unverified 09/25/16 07:28 Home Medications Medication Instructions Recorded Confirmed Last Taken Type Bisacodyl [Dulcolax suppos] 10 mg LA QDAY PRN #20 supp.rect 10/24/16 04/30/19 Unknown Rx Donepezil [Aricept] 5 mg PO QHS #30 tablet 10/24/16 04/30/19 04/29/19 21:00 Rx hydroCHLOROthiazide [HCTZ] 12.5 mg PO QDAY #30 capsule 10/24/16 04/30/19 04/29/19 09:00 Rx Lipase/Protease/Amylase [Pancreaze 1 each FEEDTUBE PRN PRN #30 capsule 10/27/16 04/30/[address] 10,500 Unit] Simple Syrup 15 ml FEEDTUBE PRN PRN #30 10/27/16 04/30/19 Unknown Rx oral.liqd Ascorbic Acid [Vitamin C with Samreen 500 mg FEEDTUBE DAILY 04/30/19 04/30/19 04/29/19 09:00 History Hips] Baclofen 5 mg FEEDTUBE BID 04/30/19 04/30/19 04/29/19 21:00 History Furosemide [Lasix] 20 mg FEEDTUBE QDAY 04/30/19 04/30/19 04/29/19 09:00 History Ipratropium/Albuterol Sulfate 1 ampul IH Q6HR PRN 04/30/19 04/30/19 Unknown History [DUONEB *Not for PRN Use*] Iron Polysaccharide Complex 5 ml FEEDTUBE DAILY 04/30/19 04/30/19 04/29/19 09:00 History Lispro Insulin [HumaLOG] See Protocol SQ Q6H 04/30/19 04/30/19 Unknown History Memantine [Namenda] 10 mg FEEDTUBE DAILY 04/30/19 04/30/19 04/29/19 09:00 History Metoprolol [Lopressor TAB] 25 mg FEEDTUBE BID 04/30/19 04/30/19 04/29/19 21:00 History Multivit-Min/Iron/Folic Acid/K 1 each FEEDTUBE DAILY 04/30/19 04/30/19 04/29/19 09:00 History [Adults Multivitamin Tablet] Potassium Chloride 7.5 ml FEEDTUBE DAILY 04/30/19 04/30/19 04/29/19 09:00 History oxyCODONE /ACETAMINOPHEN [Percocet 1 tab FEEDTUBE Q6HR PRN 04/30/19 04/30/19 Unknown History 5/325] raNITIdine HCl [Zantac] 150 mg FEEDTUBE DAILY 04/30/19 04/30/19 04/29/19 09:00 History Active Meds: Active Medications Famotidine (Pepcid) 20 mg IV BID KRISTY Sodium Chloride (Nacl 0.9% 1000 Ml) 1,000 mls @ 100 mls/hr IV DIRECT KRISTY Ondansetron HCl (Zofran) 4 mg IV Q8H PRN PRN Reason: Nausea And Vomiting Oxycodone/Acetaminophen (Percocet 5/325) 1 tab PO Q6H PRN PRN Reason: Pain, Moderate (4-6) Review of Systems ROS unobtainable: due to mental status Exam - Constitutional Vitals: Temp Pulse Resp BP Pulse Ox 101.9 F H 101 H 16 104/46 94 04/30/19 02:30 04/30/19 05:15 04/30/19 05:15 04/30/19 05:15 04/30/19 05:15 General appearance: Present: obese, other (nonverbal) - Respiratory Respiratory: bilateral: diminished - Cardiovascular Rhythm: regular Heart Sounds: Present: S1 & S2 Peripheral Pulses: within normal limits - Abdominal Female genitourinary: Present: deferred - Rectal Rectal Exam: deferred - Integumentary Integumentary: Present: warm - Musculoskeletal Musculoskeletal: other - Psychiatric Psychiatric: other (unable to assess) - Neurologic Neurologic: focal deficits Results - Labs CBC & Chem 7: 04/30/19 02:28 04/30/19 03:33 Labs: Laboratory Last Values WBC 22.9 K/mm3 (4.5-11.0) H 04/30/19 02:28 RBC 3.72 M/mm3 (3.65-5.03) 04/30/19 02:28 Hgb 9.9 gm/dl (10.1-14.3) L 04/30/19 02:28 Hct 30.7 % (30.3-42.9) 04/30/19 02:28 MCV 83 fl (79-97) 04/30/19 02:28 MCH 27 pg (28-32) L 04/30/19 02:28 MCHC 32 % (30-34) 04/30/19 02:28 RDW 15.8 % (13.2-15.2) H 04/30/19 02:28 Plt Count 234 K/mm3 (140-440) 04/30/19 02:28 ESR 120 mm/Hr (0-20) 04/30/19 02:28 PT 14.5 Sec. (12.2-14.9) 04/30/19 02:28 INR 1.16 (0.87-1.13) H 04/30/19 02:28 VBG pH 7.435 (7.320-7.420) H 04/30/19 02:28 Sodium 138 mmol/L (137-145) 04/30/19 03:33 Potassium 3.8 mmol/L (3.6-5.0) 04/30/19 03:33 Chloride 96.7 mmol/L (98-107) L 04/30/19 03:33 Carbon Dioxide 28 mmol/L (22-30) 04/30/19 03:33 Anion Gap 17 mmol/L 04/30/19 03:33 BUN 27 mg/dL (7-17) H 04/30/19 03:33 Creatinine 0.5 mg/dL (0.7-1.2) L 04/30/19 03:33 Estimated GFR > 60 ml/min 04/30/19 03:33 BUN/Creatinine Ratio 54 % 04/30/19 03:33 Glucose 161 mg/dL (65-100) H 04/30/19 03:33 Lactic Acid 2.50 mmol/L (0.7-2.0) H* 04/30/19 03:47 Calcium 8.9 mg/dL (8.4-10.2) 04/30/19 03:33 Total Bilirubin 0.50 mg/dL (0.1-1.2) 04/30/19 03:33 AST 22 units/L (5-40) 04/30/19 03:33 ALT 9 units/L (7-56) 04/30/19 03:33 Alkaline Phosphatase 121 units/L (35-129) 04/30/19 03:33 Total Creatine Kinase 106 units/L (30-135) 04/30/19 03:33 Total Protein 8.7 g/dL (6.3-8.2) H 04/30/19 03:33 Albumin 3.0 g/dL (3.9-5) L 04/30/19 03:33 Albumin/Globulin Ratio 0.5 % 04/30/19 03:33 Assessment and Plan Assessment and plan: 1. Acute febrile illness 2. Multiple decubitus ulcers 3. H/o stroke with contractures deformities 4. HTN 5. DM type 2 6. Quadruplegia 7. Dementia 8. Non-communicativ 9. Anemia 10. Obesity Plan: Pt is admitted for acute febrile illness Continue antibiotics with vanco IV IVF for hydration Consult would care for ulcers management Q2hr turns Continue home meds Glycemic management with insulin per sliding scale Further plan per hospital cours DNR Advance Directives: Yes VTE prophylaxis?: Chemical Plan of care discussed with patient/family: Yes <MERNA KRAUSE - Last Filed: 04/30/19 06:58> History of Present Illness Date of admission: 04/30/19 05:42 Medications and Allergies Active Meds: Active Medications Famotidine (Pepcid) 20 mg IV BID KRISTY Sodium Chloride (Nacl 0.9% 1000 Ml) 1,000 mls @ 100 mls/hr IV DIRECT KRISTY Vancomycin HCl 1,500 mg/ (Sodium Chloride) 530 mls @ 333.333 mls/hr IV Q12H KRISTY Piperacillin Sod/Tazobactam Sod (Zosyn/Ns 3.375gm/50ml) 3.375 gm in 50 mls @ 100 mls/hr IV Q8HR KRISTY; Protocol Ondansetron HCl (Zofran) 4 mg IV Q8H PRN PRN Reason: Nausea And Vomiting Oxycodone/Acetaminophen (Percocet 5/325) 1 tab PO Q6H PRN PRN Reason: Pain, Moderate (4-6) Exam - Constitutional Vitals: Temp Pulse Resp BP Pulse Ox 101.9 F H 101 H 16 104/46 94 04/30/19 02:30 04/30/19 05:15 04/30/19 05:15 04/30/19 05:15 04/30/19 05:15 Results - Labs CBC & Chem 7: 04/30/19 02:28 04/30/19 03:33 Labs: Laboratory Last Values WBC 22.9 K/mm3 (4.5-11.0) H 04/30/19 02:28 RBC 3.72 M/mm3 (3.65-5.03) 04/30/19 02:28 Hgb 9.9 gm/dl (10.1-14.3) L 04/30/19 02:28 Hct 30.7 % (30.3-42.9) 04/30/19 02:28 MCV 83 fl (79-97) 04/30/19 02:28 MCH 27 pg (28-32) L 04/30/19 02:28 MCHC 32 % (30-34) 04/30/19 02:28 RDW 15.8 % (13.2-15.2) H 04/30/19 02:28 Plt Count 234 K/mm3 (140-440) 04/30/19 02:28 Add Manual Diff Complete 04/30/19 02:28 Total Counted 100 04/30/19 02:28 Seg Neuts % (Manual) 89.0 % (40.0-70.0) H 04/30/19 02:28 Band Neutrophils % 0 % 04/30/19 02:28 Lymphocytes % (Manual) 9.0 % (13.4-35.0) L 04/30/19 02:28 Reactive Lymphs % (Man) 0 % 04/30/19 02:28 Monocytes % (Manual) 1.0 % (0.0-7.3) 04/30/19 02:28 Eosinophils % (Manual) 0 % (0.0-4.3) 04/30/19 02:28 Basophils % (Manual) 0 % (0.0-1.8) 04/30/19 02:28 Metamyelocytes % 1.0 % 04/30/19 02:28 Myelocytes % 0 % 04/30/19 02:28 Promyelocytes % 0 % 04/30/19 02:28 Blast Cells % 0 % 04/30/19 02:28 Nucleated RBC % Not Reportable 04/30/19 02:28 Seg Neutrophils # Man 20.4 K/mm3 (1.8-7.7) H 04/30/19 02:28 Band Neutrophils # 0.0 K/mm3 04/30/19 02:28 Lymphocytes # (Manual) 2.1 K/mm3 (1.2-5.4) 04/30/19 02:28 Abs React Lymphs (Man) 0.0 K/mm3 04/30/19 02:28 Monocytes # (Manual) 0.2 K/mm3 (0.0-0.8) 04/30/19 02:28 Eosinophils # (Manual) 0.0 K/mm3 (0.0-0.4) 04/30/19 02:28 Basophils # (Manual) 0.0 K/mm3 (0.0-0.1) 04/30/19 02:28 Metamyelocytes # 0.2 K/mm3 04/30/19 02:28 Myelocytes # 0.0 K/mm3 04/30/19 02:28 Promyelocytes # 0.0 K/mm3 04/30/19 02:28 Blast Cells # 0.0 K/mm3 04/30/19 02:28 WBC Morphology Not Reportable 04/30/19 02:28 Hypersegmented Neuts Not Reportable 04/30/19 02:28 Hyposegmented Neuts Not Reportable 04/30/19 02:28 Hypogranular Neuts Not Reportable 04/30/19 02:28 Smudge Cells Not Reportable 10/16/19 02:28 Toxic Granulation Not Reportable 04/30/19 02:28 Toxic Vacuolation Not Reportable 04/30/19 02:28 Dohle Bodies Not Reportable 04/30/19 02:28 Pelger-Huet Anomaly Not Reportable 04/30/19 02:28 Cass Rods Not Reportable 04/30/19 02:28 Platelet Estimate Consistent w auto 04/30/19 02:28 Clumped Platelets Not Reportable 04/30/19 02:28 Plt Clumps, EDTA Not Reportable 04/30/19 02:28 Large Platelets Not Reportable 04/30/19 02:28 Giant Platelets Not Reportable 04/30/19 02:28 Platelet Satelliting Not Reportable 04/30/19 02:28 Plt Morphology Comment Not Reportable 04/30/19 02:28 RBC Morphology Not Reportable 04/30/19 02:28 Dimorphic RBCs Not Reportable 04/30/19 02:28 Polychromasia Not Reportable 04/30/19 02:28 Hypochromasia Not Reportable 04/30/19 02:28 Poikilocytosis Not Reportable 04/30/19 02:28 Anisocytosis Not Reportable 04/30/19 02:28 Microcytosis Few 04/30/19 02:28 Macrocytosis Not Reportable 04/30/19 02:28 Spherocytes Not Reportable 04/30/19 02:28 Pappenheimer Bodies Not Reportable 04/30/19 02:28 Sickle Cells Not Reportable 04/30/19 02:28 Target Cells Not Reportable 04/30/19 02:28 Tear Drop Cells Not Reportable 04/30/19 02:28 Ovalocytes Few 04/30/19 02:28 Helmet Cells Not Reportable 04/30/19 02:28 [place]-Clara Bodies Not Reportable 04/30/19 02:28 [place] Rings Not Reportable 04/30/19 02:28 Kayce Cells Not Reportable 04/30/19 02:28 Bite Cells Not Reportable 04/30/19 02:28 Crenated Cell Not Reportable 04/30/19 02:28 Elliptocytes Rare 04/30/19 02:28 Acanthocytes (Spur) Not Reportable 04/30/19 02:28 Rouleaux Not Reportable 04/30/19 02:28 Hemoglobin C Crystals Not Reportable 04/30/19 02:28 Schistocytes Not Reportable 04/30/19 02:28 Malaria parasites Not Reportable 04/30/19 02:28 ESR 120 mm/Hr (0-20) 04/30/19 02:28 Chris Bodies Not Reportable 04/30/19 02:28 Hem Pathologist Commnt No 04/30/19 02:28 PT 14.5 Sec. (12.2-14.9) 04/30/19 02:28 INR 1.16 (0.87-1.13) H 04/30/19 02:28 VBG pH 7.435 (7.320-7.420) H 04/30/19 02:28 Sodium 138 mmol/L (137-145) 04/30/19 03:33 Potassium 3.8 mmol/L (3.6-5.0) 04/30/19 03:33 Chloride 96.7 mmol/L (98-107) L 04/30/19 03:33 Carbon Dioxide 28 mmol/L (22-30) 04/30/19 03:33 Anion Gap 17 mmol/L 04/30/19 03:33 BUN 27 mg/dL (7-17) H 04/30/19 03:33 Creatinine 0.5 mg/dL (0.7-1.2) L 04/30/19 03:33 Estimated GFR > 60 ml/min 04/30/19 03:33 BUN/Creatinine Ratio 54 % 04/30/19 03:33 Glucose 161 mg/dL (65-100) H 04/30/19 03:33 Lactic Acid 2.50 mmol/L (0.7-2.0) H* 04/30/19 03:47 Calcium 8.9 mg/dL (8.4-10.2) 04/30/19 03:33 Total Bilirubin 0.50 mg/dL (0.1-1.2) 04/30/19 03:33 AST 22 units/L (5-40) 04/30/19 03:33 ALT 9 units/L (7-56) 04/30/19 03:33 Alkaline Phosphatase 121 units/L (35-129) 04/30/19 03:33 Total Creatine Kinase 106 units/L (30-135) 04/30/19 03:33 C-Reactive Protein 5.30 mg/dL (0.00-1.30) H 04/30/19 03:33 Total Protein 8.7 g/dL (6.3-8.2) H 04/30/19 03:33 Albumin 3.0 g/dL (3.9-5) L 04/30/19 03:33 Albumin/Globulin Ratio 0.5 % 04/30/19 03:33 Assessment and Plan Assessment and plan: 73 -year-old woman with a history of hypertension, diabetes, dementia, CVA functional quadriplegia was brought to the emergency room for evaluation of fever. She has multiple wounds - heel, hipand sacral which the family is agreeable to antibiotic, possible debridement. Add Zosyn to Vanco, follow cultures. Surgery was consulted to see the patient, add wound care
[2019-04-30 06:25] LABS: Basophils % (Manual) 0 % (0.0-1.8); Eosinophils % (Manual) 0 % (0.0-4.3); Total Cells Counted 100
[2019-04-30 06:26] LABS: Ovalocytes Few
[2019-04-30 06:27] LABS: Platelet Estimate Consistent w Auto
--- NOTE | 2019-04-30 07:22 | Progress Note ---
Assessment and Plan Assessment and plan: Pt is a 73 year old female with PMHx of HTN, dementia, DM type 2, CVA with contractures deformities, Quadruplegia, and multiple sacral and heels ulcers who was brought to the ER from [facility] for fever and decubitus ulcers. Pt was seen in the ER, she is non-verval, catatonic state and unable to provide any medical history. Most of the history and information was obtained from the pt's record from the rehab. In the ER, pt's temp was 101.9, his WBC was 22.9, she was started in antibiotic and admitted for further management. XR LEFT FOOT:Soft tissue swelling of the mid and distal foot is identified. The fifth metatarsal is indistinct and incompletely visualized. Generalized bony demineralization. No other skeletal abnormality. CXR: No acute findings. 1. Sepsis Secondary to multiple Ulcers 2. Multiple decubitus ulcers 3. H/o stroke with contractures deformities 4. HTN 5. DM type 2 6. Quadruplegia 7. Dementia 8. Non-communicativ 9. Anemia 10. Obesity 11. Lactic Acidosis Plan: Continue supportive Care Consult ID Continue antibiotics with vanco IV IVF for hydration Consult would care for ulcers management Q2hr turns Continue home meds Glycemic management with insulin per sliding scale Further plan per hospital course DNR History Interval history: Patient seen and examined, patient is non verbal, contracted. No adverse event reported by nursing staff Hospitalist Physical - Physical exam Narrative exam: Constitutional: awake, non verbal, non communicative, contracted, obese Head, Ears, Nose: Normocephalic, atraumatic. External ears, nose normal Eyes: Conjunctivae/corneas clear. No icterus. No ptosis. Neck: Supple, no meningeal signs Cardiovascular: S1, S2 normal. Respiratory: Good air entry, clear to auscultation bilaterally GI: Soft, non-tender; bowel sounds normal. No peritoneal signs. G tube Musculoskeletal: No pedal edema, no cyanosis. Mulitiple contracture Skin: leg wounds, R hip deep wound, sacral wound with dressing.see wound care note for full documentation Hem/Lymphatic: No palpable cervical or supraclavicular nodes. No lymphangitis Psych: no agitation Neurological: awake, non verbal, non communicative - Constitutional Vitals: Temp Pulse Resp BP Pulse Ox 101.9 F H 101 H 16 110/61 94 04/30/19 02:30 04/30/19 06:00 04/30/19 06:00 04/30/19 06:00 04/30/19 06:00 General appearance: Present: obese, other (nonverbal) Results - Labs CBC & Chem 7: 04/30/19 02:28 04/30/19 03:33 Labs: Laboratory Last Values WBC 22.9 K/mm3 (4.5-11.0) H 04/30/19 02:28 RBC 3.72 M/mm3 (3.65-5.03) 04/30/19 02:28 Hgb 9.9 gm/dl (10.1-14.3) L 04/30/19 02:28 Hct 30.7 % (30.3-42.9) 04/30/19 02:28 MCV 83 fl (79-97) 04/30/19 02:28 MCH 27 pg (28-32) L 04/30/19 02:28 MCHC 32 % (30-34) 04/30/19 02:28 RDW 15.8 % (13.2-15.2) H 04/30/19 02:28 Plt Count 234 K/mm3 (140-440) 04/30/19 02:28 Add Manual Diff Complete 04/30/19 02:28 Total Counted 100 04/30/19 02:28 Seg Neuts % (Manual) 89.0 % (40.0-70.0) H 04/30/19 02:28 Band Neutrophils % 0 % 04/30/19 02:28 Lymphocytes % (Manual) 9.0 % (13.4-35.0) L 04/30/19 02:28 Reactive Lymphs % (Man) 0 % 04/30/19 02:28 Monocytes % (Manual) 1.0 % (0.0-7.3) 04/30/19 02:28 Eosinophils % (Manual) 0 % (0.0-4.3) 04/30/19 02:28 Basophils % (Manual) 0 % (0.0-1.8) 04/30/19 02:28 Metamyelocytes % 1.0 % 04/30/19 02:28 Myelocytes % 0 % 04/30/19 02:28 Promyelocytes % 0 % 04/30/19 02:28 Blast Cells % 0 % 04/30/19 02:28 Nucleated RBC % Not Reportable 04/30/19 02:28 Seg Neutrophils # Man 20.4 K/mm3 (1.8-7.7) H 04/30/19 02:28 Band Neutrophils # 0.0 K/mm3 04/30/19 02:28 Lymphocytes # (Manual) 2.1 K/mm3 (1.2-5.4) 04/30/19 02:28 Abs React Lymphs (Man) 0.0 K/mm3 04/30/19 02:28 Monocytes # (Manual) 0.2 K/mm3 (0.0-0.8) 04/30/19 02:28 Eosinophils # (Manual) 0.0 K/mm3 (0.0-0.4) 04/30/19 02:28 Basophils # (Manual) 0.0 K/mm3 (0.0-0.1) 04/30/19 02:28 Metamyelocytes # 0.2 K/mm3 04/30/19 02:28 Myelocytes # 0.0 K/mm3 04/30/19 02:28 Promyelocytes # 0.0 K/mm3 04/30/19 02:28 Blast Cells # 0.0 K/mm3 04/30/19 02:28 WBC Morphology Not Reportable 04/30/19 02:28 Hypersegmented Neuts Not Reportable 04/30/19 02:28 Hyposegmented Neuts Not Reportable 04/30/19 02:28 Hypogranular Neuts Not Reportable 04/30/19 02:28 Smudge Cells Not Reportable 04/30/19 02:28 Toxic Granulation Not Reportable 04/30/19 02:28 Toxic Vacuolation Not Reportable 04/30/19 02:28 Dohle Bodies Not Reportable 04/30/19 02:28 Pelger-Huet Anomaly Not Reportable 04/30/19 02:28 Cass Rods Not Reportable 04/30/19 02:28 Platelet Estimate Consistent w auto 04/30/19 02:28 Clumped Platelets Not Reportable 04/30/19 02:28 Plt Clumps, EDTA Not Reportable 04/30/19 02:28 Large Platelets Not Reportable 04/30/19 02:28 Giant Platelets Not Reportable 04/30/19 02:28 Platelet Satelliting Not Reportable 04/30/19 02:28 Plt Morphology Comment Not Reportable 04/30/19 02:28 RBC Morphology Not Reportable 04/30/19 02:28 Dimorphic RBCs Not Reportable 04/30/19 02:28 Polychromasia Not Reportable 04/30/19 02:28 Hypochromasia Not Reportable 04/30/19 02:28 Poikilocytosis Not Reportable 04/30/19 02:28 Anisocytosis Not Reportable 04/30/19 02:28 Microcytosis Few 04/30/19 02:28 Macrocytosis Not Reportable 04/30/19 02:28 Spherocytes Not Reportable 04/30/19 02:28 Pappenheimer Bodies Not Reportable 04/30/19 02:28 Sickle Cells Not Reportable 04/30/19 02:28 Target Cells Not Reportable 04/30/19 02:28 Tear Drop Cells Not Reportable 04/30/19 02:28 Ovalocytes Few 04/30/19 02:28 Helmet Cells Not Reportable 04/30/19 02:28 [place] Bodies Not Reportable 04/30/19 02:28 [place] Rings Not Reportable 04/30/19 02:28 Kayce Cells Not Reportable 04/30/19 02:28 Bite Cells Not Reportable 04/30/19 02:28 Crenated Cell Not Reportable 04/30/19 02:28 Elliptocytes Rare 04/30/19 02:28 Acanthocytes (Spur) Not Reportable 04/30/19 02:28 Rouleaux Not Reportable 04/30/19 02:28 Hemoglobin C Crystals Not Reportable 04/30/19 02:28 Schistocytes Not Reportable 04/30/19 02:28 Malaria parasites Not Reportable 04/30/19 02:28 ESR 120 mm/Hr (0-20) 04/30/19 02:28 Chris Bodies Not Reportable 04/30/19 02:28 Hem Pathologist Commnt No 04/30/19 02:28 PT 14.5 Sec. (12.2-14.9) 04/30/19 02:28 INR 1.16 (0.87-1.13) H 04/30/19 02:28 VBG pH 7.435 (7.320-7.420) H 04/30/19 02:28 Sodium 138 mmol/L (137-145) 04/30/19 03:33 Potassium 3.8 mmol/L (3.6-5.0) 04/30/19 03:33 Chloride 96.7 mmol/L (98-107) L 04/30/19 03:33 Carbon Dioxide 28 mmol/L (22-30) 04/30/19 03:33 Anion Gap 17 mmol/L 04/30/19 03:33 BUN 27 mg/dL (7-17) H 04/30/19 03:33 Creatinine 0.5 mg/dL (0.7-1.2) L 04/30/19 03:33 Estimated GFR > 60 ml/min 04/30/19 03:33 BUN/Creatinine Ratio 54 % 04/30/19 03:33 Glucose 161 mg/dL (65-100) H 04/30/19 03:33 Lactic Acid 2.50 mmol/L (0.7-2.0) H* 04/30/19 03:47 Calcium 8.9 mg/dL (8.4-10.2) 04/30/19 03:33 Total Bilirubin 0.50 mg/dL (0.1-1.2) 04/30/19 03:33 AST 22 units/L (5-40) 04/30/19 03:33 ALT 9 units/L (7-56) 04/30/19 03:33 Alkaline Phosphatase 121 units/L (35-129) 04/30/19 03:33 Total Creatine Kinase 106 units/L (30-135) 04/30/19 03:33 C-Reactive Protein 5.30 mg/dL (0.00-1.30) H 04/30/19 03:33 Total Protein 8.7 g/dL (6.3-8.2) H 04/30/19 03:33 Albumin 3.0 g/dL (3.9-5) L 04/30/19 03:33 Albumin/Globulin Ratio 0.5 % 04/30/19 03:33 Active Medications - Current Medications Current Medications: Generic Name Dose Route Start Last Admin Trade Name Freq PRN Reason Stop Dose Admin Famotidine 20 mg 04/30/19 10:00 Pepcid IV BID KRISTY Sodium Chloride 1,000 mls @ 75 mls/hr 04/30/19 06:00 Nacl 0.9% 1000 Ml IV DIRECT KRISTY Vancomycin HCl 1,500 mg/ 530 mls @ 333.333 mls/hr 04/30/19 15:00 Sodium Chloride IV Q12H KRISTY Piperacillin Sod/Tazobactam Sod 3.375 gm in 50 mls @ 100 mls/hr 04/30/19 06:52 Zosyn/Ns 3.375gm/50ml IV Q8HR KRISTY Protocol Ondansetron HCl 4 mg 04/30/19 05:07 Zofran IV Q8H PRN Nausea And Vomiting Oxycodone/Acetaminophen 1 tab 04/30/19 05:07 Percocet 5/325 PO Q6H PRN Pain, Moderate (4-6)
--- NOTE | 2019-04-30 10:36 | Consultation ---
History of Present Illness Consult date: 04/30/19 Reason for consult: other (infected wound) Chief complaint: infected wound - History of present illness History of present illness: 73 year old female admitted through ED from nursing facility. She has a history of chronic non healing wounds of the left foot, right hip and sacrum. She was febrile with some foot swelling and was brought in for evaluation. She has a history of surgical debridement several months ago. Past History Past Medical History: anemia, diabetes, hypertension, hyperlipidemia, stroke Past Surgical History: Other (gastric tube) Social history: no significant social history, AND/DNR-allow natural Family history: no significant family history Medications and Allergies Allergies Allergy/AdvReac Type Severity Reaction Status Date / Time No Known Allergies Allergy Unverified 09/25/16 07:28 Home Medications Medication Instructions Recorded Confirmed Last Taken Type Bisacodyl [Dulcolax suppos] 10 mg MD QDAY PRN #20 supp.rect 10/24/16 04/30/19 Unknown Rx Donepezil [Aricept] 5 mg PO QHS #30 tablet 10/24/16 04/30/19 04/29/19 21:00 Rx hydroCHLOROthiazide [HCTZ] 12.5 mg PO QDAY #30 capsule 10/24/16 04/30/19 04/29/19 09:00 Rx Lipase/Protease/Amylase [Pancreaze 1 each FEEDTUBE PRN PRN #30 capsule 10/27/16 04/30/19 Unknown Rx 10,500 Unit] Simple Syrup 15 ml FEEDTUBE PRN PRN #30 10/27/16 04/30/19 Unknown Rx oral.liqd Ascorbic Acid [Vitamin C with Samreen 500 mg FEEDTUBE DAILY 04/30/19 04/30/19 04/29/19 09:00 History Hips] Baclofen 5 mg FEEDTUBE BID 04/30/19 04/30/19 04/29/19 21:00 History Furosemide [Lasix] 20 mg FEEDTUBE QDAY 04/30/19 04/30/19 04/29/19 09:00 History Ipratropium/Albuterol Sulfate 1 ampul IH Q6HR PRN 04/30/19 04/30/19 Unknown History [DUONEB *Not for PRN Use*] Iron Polysaccharide Complex 5 ml FEEDTUBE DAILY 1004/30/19 04/29/19 09:00 History Lispro Insulin [HumaLOG] See Protocol SQ Q6H 04/30/19 04/30/19 Unknown History Memantine [Namenda] 10 mg FEEDTUBE DAILY 04/30/19 04/30/19 04/29/19 09:00 History Metoprolol [Lopressor TAB] 25 mg FEEDTUBE BID 04/30/19 04/30/19 04/29/19 21:00 History Multivit-Min/Iron/Folic Acid/K 1 each FEEDTUBE DAILY 04/30/19 04/30/19 04/29/19 09:00 History [Adults Multivitamin Tablet] Potassium Chloride 7.5 ml FEEDTUBE DAILY 04/30/19 04/30/19 04/29/19 09:00 History oxyCODONE /ACETAMINOPHEN [Percocet 1 tab FEEDTUBE Q6HR PRN 04/30/19 04/30/19 Unknown History 5/325] raNITIdine HCl [Zantac] 150 mg FEEDTUBE DAILY 04/30/19 04/30/19 04/29/19 09:00 History Active Meds: Active Medications Famotidine (Pepcid) 20 mg IV BID KRISTY Sodium Chloride (Nacl 0.9% 1000 Ml) 1,000 mls @ 75 mls/hr IV DIRECT KRISTY Piperacillin Sod/Tazobactam Sod (Zosyn/Ns 4.5gm/100ml) 4.5 gm in 100 mls @ 200 mls/hr IV Q8HR KRISTY Vancomycin HCl 1,500 mg/ (Sodium Chloride) 530 mls @ 333.333 mls/hr IV Q24H KRISTY Ondansetron HCl (Zofran) 4 mg IV Q8H PRN PRN Reason: Nausea And Vomiting Oxycodone/Acetaminophen (Percocet 5/325) 1 tab PO Q6H PRN PRN Reason: Pain, Moderate (4-6) Review of Systems ROS unobtainable: due to mental status Exam Vital Signs Temp Pulse Resp BP Pulse Ox 101.9 F H 109 H 18 132/58 95 04/30/19 02:30 04/30/19 02:30 04/30/19 02:30 04/30/19 02:30 04/30/19 02:30 - General physical appearance Positive: no distress, chronically ill, other (non verbal, contracted and immobile) - Respiratory Positive: normal expansion, normal respiratory effort - Extremities Extremity abnormal: other (left foot wrapped in dressing that is clean dry and intact. picture taken at arrival shows chronic wounds on the lateral side and heel of the left foot with some granulation tissue and exudate. pictures also demonstrated stable sacral wound that is mostly epithilized. dressing taken down from right hip/thigh wound that is cavernous, with granulation tissue. dressing had fibrinous exudate on it. no odor. some surrounding erythema and bruising. ) Results - Labs 04/30/19 02:28 04/30/19 03:33 Abnormal lab results 04/30/19 04/30/19 04/30/19 Range/Units 02:28 02:28 02:28 WBC 22.9 H (4.5-11.0) K/mm3 Hgb 9.9 L (10.1-14.3) gm/dl MCH 27 L (28-32) pg RDW 15.8 H (13.2-15.2) % Seg Neuts % (Manual) 89.0 H (40.0-70.0) % Lymphocytes % (Manual) 9.0 L (13.4-35.0) % Seg Neutrophils # Man 20.4 H (1.8-7.7) K/mm3 INR 1.16 H (0.87-1.13) VBG pH (7.320-7.420) Chloride (98-107) mmol/L BUN (7-17) mg/dL Creatinine (0.7-1.2) mg/dL Glucose (65-100) mg/dL Lactic Acid 2.90 H* (0.7-2.0) mmol/L C-Reactive Protein (0.00-1.30) mg/dL Total Protein (6.3-8.2) g/dL Albumin (3.9-5) g/dL 04/30/19 04/30/19 04/30/19 Range/Units 02:28 03:33 03:33 WBC (4.5-11.0) K/mm3 Hgb (10.1-14.3) gm/dl MCH (28-32) pg RDW (13.2-15.2) % Seg Neuts % (Manual) (40.0-70.0) % Lymphocytes % (Manual) (13.4-35.0) % Seg Neutrophils # Man (1.8-7.7) K/mm3 INR (0.87-1.13) VBG pH 7.435 H (7.320-7.420) Chloride 96.7 L (98-107) mmol/L BUN 27 H (7-17) mg/dL Creatinine 0.5 L (0.7-1.2) mg/dL Glucose 161 H (65-100) mg/dL Lactic Acid (0.7-2.0) mmol/L C-Reactive Protein 5.30 H (0.00-1.30) mg/dL Total Protein 8.7 H (6.3-8.2) g/dL Albumin 3.0 L (3.9-5) g/dL 04/30/19 04/30/19 Range/Units 03:47 08:43 WBC (4.5-11.0) K/mm3 Hgb (10.1-14.3) gm/dl MCH (28-32) pg RDW (13.2-15.2) % Seg Neuts % (Manual) (40.0-70.0) % Lymphocytes % (Manual) (13.4-35.0) % Seg Neutrophils # Man (1.8-7.7) K/mm3 INR (0.87-1.13) VBG pH (7.320-7.420) Chloride (98-107) mmol/L BUN (7-17) mg/dL Creatinine (0.7-1.2) mg/dL Glucose (65-100) mg/dL Lactic Acid 2.50 H* 2.10 H* (0.7-2.0) mmol/L C-Reactive Protein (0.00-1.30) mg/dL Total Protein (6.3-8.2) g/dL Albumin (3.9-5) g/dL Diabetes panel 04/30/19 Range/Units 03:33 Sodium 138 (137-145) mmol/L Potassium 3.8 (3.6-5.0) mmol/L Chloride 96.7 L (98-107) mmol/L Carbon Dioxide 28 (22-30) mmol/L BUN 27 H (7-17) mg/dL Creatinine 0.5 L (0.7-1.2) mg/dL Glucose 161 H (65-100) mg/dL Calcium 8.9 (8.4-10.2) mg/dL AST 22 (5-40) units/L ALT 9 (7-56) units/L Alkaline Phosphatase 121 (35-129) units/L Total Protein 8.7 H (6.3-8.2) g/dL Albumin 3.0 L (3.9-5) g/dL Calcium panel 04/30/19 Range/Units 03:33 Calcium 8.9 (8.4-10.2) mg/dL Albumin 3.0 L (3.9-5) g/dL Pituitary panel 04/30/19 Range/Units 03:33 Sodium 138 (137-145) mmol/L Potassium 3.8 (3.6-5.0) mmol/L Chloride 96.7 L (98-107) mmol/L Carbon Dioxide 28 (22-30) mmol/L BUN 27 H (7-17) mg/dL Creatinine 0.5 L (0.7-1.2) mg/dL Glucose 161 H (65-100) mg/dL Calcium 8.9 (8.4-10.2) mg/dL Adrenal panel 04/30/19 Range/Units 03:33 Sodium 138 (137-145) mmol/L Potassium 3.8 (3.6-5.0) mmol/L Chloride 96.7 L (98-107) mmol/L Carbon Dioxide 28 (22-30) mmol/L BUN 27 H (7-17) mg/dL Creatinine 0.5 L (0.7-1.2) mg/dL Glucose 161 H (65-100) mg/dL Calcium 8.9 (8.4-10.2) mg/dL Total Bilirubin 0.50 (0.1-1.2) mg/dL AST 22 (5-40) units/L ALT 9 (7-56) units/L Alkaline Phosphatase 121 (35-129) units/L Total Protein 8.7 H (6.3-8.2) g/dL Albumin 3.0 L (3.9-5) g/dL Assessment and Plan 73 year old female, quadriplegic, contracted with chronic non healing, acutely infected wounds with diabetes and other co-morbidities. febrile but hemodynamically stable on antibiotics. Spoke with wound care who is consulted to see the patient, and will change dressing with them to fully evaluate wounds to evaluate if surgical debridement is needed. Spoke with son about how aggressive he/family wishes to be with her care since she is DNR and due to her permanent bed ridden state will be suffering from these wounds most likely indefinitely. At the time of the conversation he said he was unsure if they would agree to surgical debridement and he wanted to have a discussion with other family members and call me back. continue antibiotics and dressing changes.
[2019-04-30] MEDS: PEPCID IV SCH ×2 (10:53→21:39)
[2019-04-30] MEDS ORDERED: ZOSYN/NS 3.375GM/50ML 3.375 GM/50 ML BAG IV SCH (11:00)
[2019-04-30] MEDS ORDERED: PANCREAZE DR 10,500 UNIT FEEDTUBE PRN (11:53)
[2019-04-30] MEDS ORDERED: SIMPLE SYRUP FEEDTUBE PRN ×2 (11:53)
[2019-04-30] MEDS ORDERED: SODIUM BICARBONATE FEEDTUBE PRN (11:53)
[2019-04-30] MEDS: TYLENOL PO PRN ×2 (12:29→22:14)
--- NOTE | 2019-04-30 14:45 | Consultation ---
History of Present Illness - Reason for Consult Consult date: 04/30/19 sepsis, infected wounds Requesting physician: CATE GAYTAN - History of Present Illness The patient is a 73-year-old female with dementia, hypertension, bedbound status, functional quadriplegia, senior care resident. She is s/p G tube. Has a history of multiple decubiti. Known to us from previous admission in 07/2018, had necrotic R hip wound and underwent bedside debridement by Gen. Surg. She was admitted from the emergency room today after she was noted to have fever at the senior care. Patient is completely nonverbal, unable to provide history. History was obtained by chart review. MAXIMUM TEMPERATURE of 101.9, blood work shows significant leukocytosis. Review of Systems: Nonverbal, unable to obtain Past History Past Medical History: anemia, diabetes, hypertension, hyperlipidemia, stroke Past Surgical History: Other (gastric tube) Social history: no significant social history, AND/DNR-allow natural Family history: no significant family history Medications and Allergies Allergies Allergy/AdvReac Type Severity Reaction Status Date / Time No Known Allergies Allergy Unverified 09/25/16 07:28 Home Medications Medication Instructions Recorded Confirmed Last Taken Type Bisacodyl [Dulcolax suppos] 10 mg [place] QDAY PRN #20 supp.rect 10/24/16 04/30/19 Unknown Rx Donepezil [Aricept] 5 mg PO QHS #30 tablet 10/24/16 04/30/19 04/29/19 21:00 Rx hydroCHLOROthiazide [HCTZ] 12.5 mg PO QDAY #30 capsule 10/24/16 04/30/19 04/29/19 09:00 Rx Lipase/Protease/Amylase [Pancreaze 1 each FEEDTUBE PRN PRN #30 capsule 10/27/16 04/30/[address] 10,500 Unit] Simple Syrup 15 ml FEEDTUBE PRN PRN #30 10/27/16 04/30/19 Unknown Rx oral.liqd Ascorbic Acid [Vitamin C with Samreen 500 mg FEEDTUBE DAILY 04/30/19 04/30/19 04/29/19 09:00 History Hips] Baclofen 5 mg FEEDTUBE BID 04/30/19 04/30/19 04/29/19 21:00 History Furosemide [Lasix] 20 mg FEEDTUBE QDAY 04/30/19 04/30/19 04/29/19 09:00 History Ipratropium/Albuterol Sulfate 1 ampul IH Q6HR PRN 04/30/19 04/30/19 Unknown History [DUONEB *Not for PRN Use*] Iron Polysaccharide Complex 5 ml FEEDTUBE DAILY 04/30/19 04/30/19 04/29/19 09:00 History Lispro Insulin [HumaLOG] See Protocol SQ Q6H 04/30/19 04/30/19 Unknown History Memantine [Namenda] 10 mg FEEDTUBE DAILY 04/30/19 04/30/19 04/29/19 09:00 History Metoprolol [Lopressor TAB] 25 mg FEEDTUBE BID 04/30/19 04/30/19 04/29/19 21:00 History Multivit-Min/Iron/Folic Acid/K 1 each FEEDTUBE DAILY 04/30/19 04/30/19 04/29/19 09:00 History [Adults Multivitamin Tablet] Potassium Chloride 7.5 ml FEEDTUBE DAILY 04/30/19 04/30/19 04/29/19 09:00 History oxyCODONE /ACETAMINOPHEN [Percocet 1 tab FEEDTUBE Q6HR PRN 04/30/19 04/30/19 Unknown History 5/325] raNITIdine HCl [Zantac] 150 mg FEEDTUBE DAILY 04/30/19 04/30/19 04/29/19 09:00 History Active Meds: Active Medications Acetaminophen (Tylenol) 650 mg PO Q6H PRN PRN Reason: Pain, Mild (1-3) Last Admin: 04/30/19 12:29 Dose: 650 mg Documented by: Lipase/Protease/Amylase (Frieda Herrmann 10,500 Unit) 1 each FEEDTUBE PRN PRN PRN Reason: For Clogged Feeding Tube Famotidine (Pepcid) 20 mg IV BID [facility] Last Admin: 04/30/19 10:53 Dose: 20 mg Documented by: Sodium Chloride (Nacl 0.9% 1000 Ml) 1,000 mls @ 75 mls/hr IV DIRECT KRISTY Piperacillin Sod/Tazobactam Sod (Zosyn/Ns 4.5gm/100ml) 4.5 gm in 100 mls @ 200 mls/hr IV Q8HR KRISTY Last Admin: 04/30/19 11:22 Dose: 200 mls/hr Documented by: Vancomycin HCl 1,500 mg/ (Sodium Chloride) 530 mls @ 333.333 mls/hr IV Q24H [facility] Ondansetron HCl (Zofran) 4 mg IV Q8H PRN PRN Reason: Nausea And Vomiting Oxycodone/Acetaminophen (Percocet 5/325) 1 tab PO Q6H PRN PRN Reason: Pain, Moderate (4-6) Simple Syrup (Simple Syrup) 15 ml FEEDTUBE PRN PRN PRN Reason: Hypoglycemia Simple Syrup (Simple Syrup) 30 ml FEEDTUBE PRN PRN PRN Reason: Hypoglycemia Sodium Bicarbonate (Sodium Bicarbonate) 325 mg FEEDTUBE PRN PRN PRN Reason: For Clogged Feeding Tube Physical Examination - Physical Exam Narrative exam: Physical Exam: Constitutional: awake, non verbal, non communicative Head, Ears, Nose: Normocephalic, atraumatic. External ears, nose normal Eyes: Conjunctivae/corneas clear. No icterus. No ptosis. Neck: Supple, no meningeal signs Oral: unable to examine Cardiovascular: S1, S2 normal. Respiratory: Good air entry, clear to auscultation bilaterally GI: Soft, non-tender; bowel sounds normal. No peritoneal signs. G tube Musculoskeletal: No pedal edema, no cyanosis. Skin: leg wounds, R hip deep wound, sacral wound with dressing. Hem/Lymphatic: No palpable cervical or supraclavicular nodes. No lymphangitis Psych: no agitation Neurological: awake, non verbal, non communicative - Constitutional Vitals: Vital Signs Temp Pulse Resp BP Pulse Ox 100.6 F H 101 H 22 116/56 94 04/30/19 07:30 04/30/19 07:30 04/30/19 07:30 04/30/19 07:30 04/30/19 08:12 Temperature -Last 24 Hours Temperature 100.6 F Temperature 101.9 F Results - Labs CBC & Chem 7: 04/30/19 02:28 04/30/19 03:33 Labs: Abnormal lab results 04/30/19 04/30/19 04/30/19 Range/Units 02:28 02:28 02:28 WBC 22.9 H (4.5-11.0) K/mm3 Hgb 9.9 L (10.1-14.3) gm/dl MCH 27 L (28-32) pg RDW 15.8 H (13.2-15.2) % Seg Neuts % (Manual) 89.0 H (40.0-70.0) % Lymphocytes % (Manual) 9.0 L (13.4-35.0) % Seg Neutrophils # Man 20.4 H (1.8-7.7) K/mm3 INR 1.16 H (0.87-1.13) VBG pH (7.320-7.420) Chloride (98-107) mmol/L BUN (7-17) mg/dL Creatinine (0.7-1.2) mg/dL Glucose (65-100) mg/dL POC Glucose (70-105) Lactic Acid 2.90 H* (0.7-2.0) mmol/L C-Reactive Protein (0.00-1.30) mg/dL Total Protein (6.3-8.2) g/dL Albumin (3.9-5) g/dL 04/30/19 04/30/19 04/30/19 Range/Units 02:28 03:33 03:33 WBC (4.5-11.0) K/mm3 Hgb (10.1-14.3) gm/dl MCH (28-32) pg RDW (13.2-15.2) % Seg Neuts % (Manual) (40.0-70.0) % Lymphocytes % (Manual) (13.4-35.0) % Seg Neutrophils # Man (1.8-7.7) K/mm3 INR (0.87-1.13) VBG pH 7.435 H (7.320-7.420) Chloride 96.7 L (98-107) mmol/L BUN 27 H (7-17) mg/dL Creatinine 0.5 L (0.7-1.2) mg/dL Glucose 161 H (65-100) mg/dL POC Glucose (70-105) Lactic Acid (0.7-2.0) mmol/L C-Reactive Protein 5.30 H (0.00-1.30) mg/dL Total Protein 8.7 H (6.3-8.2) g/dL Albumin 3.0 L (3.9-5) g/dL 04/30/19 04/30/19 04/30/19 Range/Units 03:47 08:43 11:28 WBC (4.5-11.0) K/mm3 Hgb (10.1-14.3) gm/dl MCH (28-32) pg RDW (13.2-15.2) % Seg Neuts % (Manual) (40.0-70.0) % Lymphocytes % (Manual) (13.4-35.0) % Seg Neutrophils # Man (1.8-7.7) K/mm3 INR (0.87-1.13) VBG pH (7.320-7.420) Chloride (98-107) mmol/L BUN (7-17) mg/dL Creatinine (0.7-1.2) mg/dL Glucose (65-100) mg/dL POC Glucose 155 H (70-105) Lactic Acid 2.50 H* 2.10 H* (0.7-2.0) mmol/L C-Reactive Protein (0.00-1.30) mg/dL Total Protein (6.3-8.2) g/dL Albumin (3.9-5) g/dL - Imaging and Cardiology Chest x-ray: report reviewed, image reviewed (Chest x-ray shows no obvious i nfiltrate) Assessment and Plan Cultures: 04/30/2019 blood culture: In progress 04/30/2019 Left foot culture: In process 04/30/2019 Right hip culture: In process A/P: 73-year-old female with dementia, hypertension, bedbound status, functional quadriplegia, senior care resident. She is s/p G tube. Has a history of multi ple decubiti. Known to us from previous admission in 07/2018, had necrotic R hip wound and underwent bedside debridement by Gen. Surg #1 Sepsis: Present on admission, likely secondary to infected decubitus ulcer v/s urine source. Chest x-ray not consistent with any obvious pneumonia. #2 Multiple decubitus ulcers: She has had debridement in the past. Overall prognosis is extremely guarded given her baseline comorbidities. Will treat the sepsis, prolonged abx will be futile. Surgery following. #3 Chronic encephalopathy with functional quadriplegia: guarded prognosis. Recs: Empiric cefepime and vancomycin UA with urine culture ordered via straight cath f/u cultures continue wound care overall poor prognosis America Miranda MD, FACP [facility] ([facility] C: [phone] O: [phone] F: [phone]
[2019-04-30] MEDS ORDERED: MAXIPIME/NS 2 GM/100 ML 2 GM/100 ML BAG IV SCH (15:00)
[2019-04-30] MEDS ORDERED: VANCOMYCIN 1,500 MG in NACL 0.9% 500 ML 500 ML IV SCH (15:00)
--- NOTE | 2019-04-30 15:41 | Event Note ---
Date: 04/30/19 Examined the patient with wound care nurses. Left foot with obvious 4th and 5th digit disfigurement. due to permanent contracture positioning. Lateral foot with open wound that is shallow with visible granulation tissue, no active drainage, no odor, + fibrinous exudate on the periphery that is mild, no palpable fluid collections suggestive of abscess collections. The heal of the foot is smaller but similar with no odor, drainage, or signs of drainable abscess collection. At the apex of the gluteal cleft there is a ~1x2cm open wound that is not draining with visible granulation tissue. Right hip wound is about 5cm deep with visible granulation tissue and no active purulent drainage. There is some erythema present as high as the ischial crest around the wound and down to the distal thigh, area was fully palpated. There were no palpable fluid collections or areas of fluctuance. more consistent with diffuse cellulitis. With no obvious drainable collections, or necrotic tissue to excise, current recommendation is antibiotics per ID and wound care per wound care team. will continue to follow.
[2019-04-30] MEDS: MAXIPIME/NS 2 GM/100 ML 2 GM/100 ML BAG IV SCH (15:46)
[2019-04-30] MEDS: NACL 0.9% 1000 ML 1,000 ML IV SCH (21:41)
[2019-04-30 22:58] LABS: Bilirubin,Urine NEG (Negative); Blood,Urine SM (Negative); Color,Urine Yellow (Yellow); Mucus,Urine FEW /HPF; Protein,Urine <15 mg/dL mg/dL (Negative); Urobilinogen,Urine < 2.0 mg/dL (<2.0)
[2019-05-01] MEDS: MAXIPIME/NS 2 GM/100 ML 2 GM/100 ML BAG IV SCH ×3 (04:38→22:00)
[2019-05-01] MEDS: VANCOMYCIN 1,500 MG in NACL 0.9% 500 ML 500 ML IV SCH (05:38)
[2019-05-01 06:14] LABS: BUN/Creatinine Ratio 33; Blood Urea Nitrogen 13 mg/dL (7-17); Calcium 8.7 mg/dL (8.4-10.2); Hemolysis Index 0
--- NOTE | 2019-05-01 08:06 | Progress Note ---
Assessment and Plan Assessment and plan: Pt is a 73 year old female with PMHx of HTN, dementia, DM type 2, CVA with contractures deformities, Quadruplegia, and multiple sacral and heels ulcers who [facility] and decubitus ulcers. Pt was seen in the ER, she is non-verval, catatonic state and unable to provide any medical history. Most of the history and information was obtained from the pt's record from the rehab. In the ER, pt's temp was 101.9, his WBC was 22.9, she was started in antibiotic and admitted for further management. * Previous admission in 07/2018, had necrotic R hip wound and underwent bedside debridement by Gen. Surg * No new fever. XR LEFT FOOT:Soft tissue swelling of the mid and distal foot is identified. The fifth metatarsal is indistinct and incompletely visualized. Generalized bony demineralization. No other skeletal abnormality. CXR: No acute findings. Culture: Blood culture. Coagulase negative Staph Wound culture: Gram negative Sree 1. Sepsis Secondary to multiple Ulcers 2. Multiple decubitus ulcers 3. H/o stroke with contracture deformities 4. HTN 5. DM type 2 6. Quadruplegia 7. Dementia 8. Non-communicativ 9. Anemia 10. Obesity 11. Lactic Acidosis-improved 12. Hypokalemia Plan: Continue supportive Care Consult ID and input noted, Surgical input noted, family discussing plan of care, Will also talk to them today about quality of life for this patient Follow urine culture Replace K Continue antibiotics with cefepime, vanco IV IVF for hydration Consult would care for ulcers management Q2hr turns Continue home meds Glycemic management with insulin per sliding scale Further plan per hospital course DNR Poor Prognosis History Interval history: Patient seen and examined, patient is non verbal, contracted. No adverse event reported by nursing staff Hospitalist Physical - Physical exam Narrative exam: Constitutional: awake, non verbal, non communicative, contracted, obese Head, Ears, Nose: Normocephalic, atraumatic. External ears, nose normal Eyes: Conjunctivae/corneas clear. No icterus. No ptosis. Neck: Supple, no meningeal signs Cardiovascular: S1, S2 normal. Respiratory: Good air entry, clear to auscultation bilaterally GI: Soft, non-tender; bowel sounds normal. No peritoneal signs. G tube Musculoskeletal: No pedal edema, no cyanosis. Mulitiple contracture Skin: leg wounds, R hip deep wound, sacral wound with dressing.see wound care note for full documentation Hem/Lymphatic: No palpable cervical or supraclavicular nodes. No lymphangitis Psych: no agitation Neurological: awake, non verbal, non communicative - Constitutional Vitals: Temp Pulse Resp BP Pulse Ox 99.5 F 106 H 20 145/79 97 05/01/19 02:30 05/01/19 02:30 05/01/19 02:30 05/01/19 02:30 05/01/19 02:30 General appearance: Present: obese, other (nonverbal) Results - Labs CBC & Chem 7: 05/01/19 09:30 05/01/19 05:10 Labs: Laboratory Last Values WBC 22.9 K/mm3 (4.5-11.0) H 04/30/19 02:28 RBC 3.72 M/mm3 (3.65-5.03) 04/30/19 02:28 Hgb 9.9 gm/dl (10.1-14.3) L 04/30/19 02:28 Hct 30.7 % (30.3-42.9) 04/30/19 02:28 MCV 83 fl (79-97) 04/30/19 02:28 MCH 27 pg (28-32) L 04/30/19 02:28 MCHC 32 % (30-34) 04/30/19 02:28 RDW 15.8 % (13.2-15.2) H 04/30/19 02:28 Plt Count 234 K/mm3 (140-440) 04/30/19 02:28 Add Manual Diff Complete 04/30/19 02:28 Total Counted 100 04/30/19 02:28 Seg Neuts % (Manual) 89.0 % (40.0-70.0) H 04/30/19 02:28 Band Neutrophils % 0 % 04/30/19 02:28 Lymphocytes % (Manual) 9.0 % (13.4-35.0) L 04/30/19 02:28 Reactive Lymphs % (Man) 0 % 04/30/19 02:28 Monocytes % (Manual) 1.0 % (0.0-7.3) 04/30/19 02:28 Eosinophils % (Manual) 0 % (0.0-4.3) 04/30/19 02:28 Basophils % (Manual) 0 % (0.0-1.8) 04/30/19 02:28 Metamyelocytes % 1.0 % 04/30/19 02:28 Myelocytes % 0 % 04/30/19 02:28 Promyelocytes % 0 % 04/30/19 02:28 Blast Cells % 0 % 04/30/19 02:28 Nucleated RBC % Not Reportable 04/30/19 02:28 Seg Neutrophils # Man 20.4 K/mm3 (1.8-7.7) H 04/30/19 02:28 Band Neutrophils # 0.0 K/mm3 04/30/19 02:28 Lymphocytes # (Manual) 2.1 K/mm3 (1.2-5.4) 04/30/19 02:28 Abs React Lymphs (Man) 0.0 K/mm3 04/30/19 02:28 Monocytes # (Manual) 0.2 K/mm3 (0.0-0.8) 04/30/19 02:28 Eosinophils # (Manual) 0.0 K/mm3 (0.0-0.4) 04/30/19 02:28 Basophils # (Manual) 0.0 K/mm3 (0.0-0.1) 04/30/19 02:28 Metamyelocytes # 0.2 K/mm3 04/30/19 02:28 Myelocytes # 0.0 K/mm3 04/30/19 02:28 Promyelocytes # 0.0 K/mm3 04/30/19 02:28 Blast Cells # 0.0 K/mm3 04/30/19 02:28 WBC Morphology Not Reportable 04/30/19 02:28 Hypersegmented Neuts Not Reportable 04/30/19 02:28 Hyposegmented Neuts Not Reportable 04/30/19 02:28 Hypogranular Neuts Not Reportable 04/30/19 02:28 Smudge Cells Not Reportable 04/30/19 02:28 Toxic Granulation Not Reportable 04/30/19 02:28 Toxic Vacuolation Not Reportable 04/30/19 02:28 Dohle Bodies Not Reportable 04/30/19 02:28 Pelger-Huet Anomaly Not Reportable 04/30/19 02:28 Cass Rods Not Reportable 04/30/19 02:28 Platelet Estimate Consistent w auto 04/30/19 02:28 Clumped Platelets Not Reportable 04/30/19 02:28 Plt Clumps, EDTA Not Reportable 04/30/19 02:28 Large Platelets Not Reportable 04/30/19 02:28 Giant Platelets Not Reportable 04/30/19 02:28 Platelet Satelliting Not Reportable 04/30/19 02:28 Plt Morphology Comment Not Reportable 04/30/19 02:28 RBC Morphology Not Reportable 04/30/19 02:28 Dimorphic RBCs Not Reportable 04/30/19 02:28 Polychromasia Not Reportable 04/30/19 02:28 Hypochromasia Not Reportable 04/30/19 02:28 Poikilocytosis Not Reportable 04/30/19 02:28 Anisocytosis Not Reportable 04/30/19 02:28 Microcytosis Few 04/30/19 02:28 Macrocytosis Not Reportable 04/30/19 02:28 Spherocytes Not Reportable 04/30/19 02:28 Pappenheimer Bodies Not Reportable 04/30/19 02:28 Sickle Cells Not Reportable 04/30/19 02:28 Target Cells Not Reportable 04/30/19 02:28 Tear Drop Cells Not Reportable 04/30/19 02:28 Ovalocytes Few 04/30/19 02:28 Helmet Cells Not Reportable 04/30/19 02:28 [place] Bodies Not Reportable 04/30/19 02:28 [place] Rings Not Reportable 04/30/19 02:28 Kayce Cells Not Reportable 04/30/19 02:28 Bite Cells Not Reportable 04/30/19 02:28 Crenated Cell Not Reportable 04/30/19 02:28 Elliptocytes Rare 04/30/19 02:28 Acanthocytes (Spur) Not Reportable 04/30/19 02:28 Rouleaux Not Reportable 04/30/19 02:28 Hemoglobin C Crystals Not Reportable 04/30/19 02:28 Schistocytes Not Reportable 04/30/19 02:28 Malaria parasites Not Reportable 04/30/19 02:28 ESR 120 mm/Hr (0-20) 04/30/19 02:28 Chris Bodies Not Reportable 04/30/19 02:28 Hem Pathologist Commnt No 04/30/19 02:28 PT 14.5 Sec. (12.2-14.9) 04/30/19 02:28 INR 1.16 (0.87-1.13) H 04/30/19 02:28 VBG pH 7.435 (7.320-7.420) H 04/30/19 02:28 Sodium 142 mmol/L (137-145) 05/01/19 05:10 Potassium 3.4 mmol/L (3.6-5.0) L 05/01/19 05:10 Chloride 105.9 mmol/L (98-107) 05/01/19 05:10 Carbon Dioxide 26 mmol/L (22-30) 05/01/19 05:10 Anion Gap 14 mmol/L 05/01/19 05:10 BUN 13 mg/dL (7-17) 05/01/19 05:10 Creatinine 0.4 mg/dL (0.7-1.2) L 05/01/19 05:10 Estimated GFR > 60 ml/min 05/01/19 05:10 BUN/Creatinine Ratio 33 % 05/01/19 05:10 Glucose 137 mg/dL (65-100) H 05/01/19 05:10 POC Glucose 135 (70-105) H 05/01/19 05:16 Lactic Acid 0.90 mmol/L (0.7-2.0) 05/01/19 05:10 Calcium 8.7 mg/dL (8.4-10.2) 05/01/19 05:10 Total Bilirubin 0.50 mg/dL (0.1-1.2) 04/30/19 03:33 AST 22 units/L (5-40) 04/30/19 03:33 ALT 9 units/L (7-56) 04/30/19 03:33 Alkaline Phosphatase 121 units/L (35-129) 04/30/19 03:33 Total Creatine Kinase 106 units/L (30-135) 04/30/19 03:33 C-Reactive Protein 5.30 mg/dL (0.00-1.30) H 04/30/19 03:33 Total Protein 8.7 g/dL (6.3-8.2) H 04/30/19 03:33 Albumin 3.0 g/dL (3.9-5) L 04/30/19 03:33 Albumin/Globulin Ratio 0.5 % 04/30/19 03:33 Urine Color Yellow (Yellow) 04/30/19 22:00 Urine Turbidity Cloudy (Clear) 04/30/19 22:00 Urine pH 7.0 (5.0-7.0) 04/30/19 22:00 Ur Specific [place] 1.024 (1.003-1.030) 04/30/19 22:00 Urine Protein <15 mg/dl mg/dL (Negative) 04/30/19 22:00 Urine Glucose (UA) Neg mg/dL (Negative) 04/30/19 22:00 Urine Ketones Neg mg/dL (Negative) 04/30/19 22:00 Urine Blood Sm (Negative) 04/30/19 22:00 Urine Nitrite Neg (Negative) 04/30/19 22:00 Urine Bilirubin Neg (Negative) 04/30/19 22:00 Urine Urobilinogen < 2.0 mg/dL (<2.0) 04/30/19 22:00 Ur Leukocyte Esterase Lg (Negative) 04/30/19 22:00 Urine WBC (Auto) 5.0 /HPF (0.0-6.0) 04/30/19 22:00 Urine RBC (Auto) 16.0 /HPF (0.0-6.0) 04/30/19 22:00 U Epithel Cells (Auto) 15.0 /HPF (0-13.0) H 04/30/19 22:00 Urine Mucus Few /HPF 04/30/19 22:00 Active Medications - Current Medications Current Medications: Generic Name Dose Route Start Last Admin Trade Name Freq PRN Reason Stop Dose Admin Acetaminophen 650 mg 04/30/19 11:31 04/30/19 22:14 Tylenol PO 650 mg Q6H PRN Administration Pain, Mild (1-3) Lipase/Protease/Amylase 1 each 04/30/19 11:[address] 10,500 Unit FEEDTUBE PRN PRN For Clogged Feeding Tube Famotidine 20 mg 04/30/19 10:00 04/30/19 21:39 Pepcid IV 20 mg BID KRISTY Administration Sodium Chloride 1,000 mls @ 75 mls/hr 04/30/19 06:00 04/30/19 21:41 Nacl 0.9% 1000 Ml IV 75 mls/hr DIRECT KRISTY Administration Vancomycin HCl 1,500 mg/ 530 mls @ 333.333 mls/hr 05/01/19 06:00 05/01/19 05:38 Sodium Chloride IV 333.333 mls/hr Q24H KRISTY Administration Cefepime HCl 2 gm in 100 mls @ 200 mls/hr 04/30/19 16:00 05/01/19 04:38 Maxipime/Ns 2 Gm/100 Ml IV 200 mls/hr Q12H KRISTY Administration Protocol Ondansetron HCl 4 mg 04/30/19 05:07 Zofran IV Q8H PRN Nausea And Vomiting Oxycodone/Acetaminophen 1 tab 04/30/19 05:07 Percocet 5/325 PO Q6H PRN Pain, Moderate (4-6) Simple Syrup 15 ml 04/30/19 11:53 Simple Syrup FEEDTUBE PRN PRN Hypoglycemia Simple Syrup 30 ml 04/30/19 11:53 Simple Syrup FEEDTUBE PRN PRN Hypoglycemia Sodium Bicarbonate 325 mg 04/30/19 11:53 Sodium Bicarbonate FEEDTUBE PRN PRN For Clogged Feeding Tube Nutrition/Malnutrition Assess - Dietary Evaluation Nutrition/Malnutrition Findings: Nutrition Notes Start: 04/30/19 11:14 Freq: Status: Active Protocol: Document 04/30/19 11:15 AP (Rec: 04/30/19 11:51 AP [id number]) Co-Sign 04/30/19 11:15 NHALL Nutrition Notes Need for Assessment generated from: MD Order Initial or Follow up Assessment Current Diagnosis Decubitus(Pressure Ulcer), Diabetes,Hypertension, Hyperlipidemia Other Pertinent Diagnosis CVA, Anemia, AMS, SIRS, Quadriplegia Current Diet Cardiac Labs/Tests BG 161 CRP 5.3 Pertinent Medications NS 75ml/hr Height 5 ft 4 in Weight 98.29 kg [place] Body Weight (kg) 54.54 BMI 37.2 Weight Status Obese Subjective/Other Information Consult to initiate/manage TF. Pt asleep in room. Burn Absent Trauma Absent Minimum of two criteria No physical signs of malnutrition #1 Nutrition Diagnosis Increased nutrient needs ( specify in comment below) Comments: Increased PRO needs Etiology Pt needs more PRO for multiple decubitus wound healing. As Evidenced by Signs and Symptoms Pt has multiple decubitus wounds. Is patient on ventilator? No Is Patient Ambulatory and/or Out of Bed No REE-([facility]-confined to bed) 1773.312 Kcal/Kg value to use for calculation 20 Approximate Energy Requirements Using 1966 kcal/Kg Calculation Used for Recommendations [facility] Additional Notes PRO: 95-144g (1.25-1.5g/kg/ AdBW) Nutrition Intervention Nutrition Support: Glucerna 1.2 at 60ml/hr. Water flush 100ml q 4. Kcal 1,728 Protein (gm) 86 Fluid (mL) 1,159 Add Supplement/Snack (indicate name/kcal Matthew /protein ) Provides kCal: 190 Provides Protein (gm) 5 Goal #1 Pt meet >80% kcal/PRO needs from TF. Goal #2 Wound healing. Anticipated Discharge Needs: CHO controlled, TF formula. Follow-Up By: 05/02/19 Additional Comments F/U for new TF.
[2019-05-01] MEDS: KCL 10MEQ/100ML 10 MEQ/100 ML BAG IV SCH ×2 (08:42→10:03)
[2019-05-01] MEDS: PEPCID IV SCH ×2 (09:04→22:00)
[2019-05-01 10:00] LABS: Basophils # (Auto) 0.1 K/mm3 (0.0-0.1); Basophils % (Auto) 0.4 % (0.0-1.8); Eosinophils # (Auto) 0.4 K/mm3 (0.0-0.4); Eosinophils % (Auto) 2.7 % (0.0-4.3); Hematocrit 27.5 % (30.3-42.9); Hemoglobin 8.8 gm/dl (10.1-14.3); Lymphocytes # (Auto) 1.4 K/mm3 (1.2-5.4); Lymphocytes % (Auto) 10.7 % (13.4-35.0); Mean Corpuscular HGB Conc 32 % (30-34); Mean Corpuscular Volume 84 fl (79-97); Monocytes # (Auto) 1.1 K/mm3 (0.0-0.8); Monocytes % (Auto) 8.5 % (0.0-7.3); Platelet Count 207 K/mm3 (140-440); Red Blood Count 3.28 M/mm3 (3.65-5.03); Red Cell Distribution Width 16.4 % (13.2-15.2)
[2019-05-01] MEDS: PROVENTIL IH PRN ×2 (13:19→21:15)
--- NOTE | 2019-05-01 13:25 | Progress Note ---
Assessment and Plan Cultures: 04/30/2019 blood culture: GPC 04/30/2019 Left foot culture: GNR 04/30/2019 Right hip culture: In process A/P: 73-year-old female with dementia, hypertension, bedbound status, functional quadriplegia, [facility] resident. She is s/p G tube. Has a history of multiple decubiti. Known to us from previous admission in 07/2018, had necrotic R hip wound and underwent bedside debridement by Gen. Surg #1 Sepsis: Present on admission, likely secondary to infected decubitus ulcer v/s urine source (less likely). Chest x-ray not consistent with any obvious pneumonia. #2 Multiple decubitus ulcers: She has had debridement in the past. Overall prognosis is extremely guarded given her baseline comorbidities. Will treat the sepsis, prolonged abx will be futile. Surgery following. #3 Chronic encephalopathy with functional quadriplegia: guarded prognosis. #4 GPC bacteremia: prelim read of CoNS, possible contaminant. Repeat blood cultures Recs: Continue IV Cefepime and vancomycin blood cultures repeated f/u blood and wound cultures continue wound care overall poor prognosis America Miranda MD, FACP [facility] C: [phone] O: [phone] F: [phone] Subjective Date of service: 05/01/19 Interval history: Low grade temperatures. Otherwise remains unresponsive, at baseline. Cannot provide history or ROS. Objective - Exam Narrative Exam: Physical Exam: Constitutional: non verbal, non communicative, opens eyes at times. No distres Head, Ears, Nose: Normocephalic, atraumatic. External ears, nose normal Eyes: Conjunctivae/corneas clear. No icterus. No ptosis. Neck: Supple, no meningeal signs Oral: unable to examine Cardiovascular: S1, S2 normal. Respiratory: Good air entry, clear to auscultation bilaterally GI: Soft, non-tender; bowel sounds normal. No peritoneal signs. G tube Musculoskeletal: No pedal edema, no cyanosis. Skin: foot wounds b/l, R hip deep wound, sacral wound with dressings Hem/Lymphatic: No palpable cervical or supraclavicular nodes. No lymphangitis Psych: no agitation Neurological: non verbal, non communicative, opens eyes at times - Constitutional Vitals: Vital Signs Temp Pulse Resp BP Pulse Ox 100.1 F H 110 H 28 H 136/62 99 05/01/19 07:26 05/01/19 11:53 05/01/19 10:00 05/01/19 11:53 05/01/19 11:53 Temperature -Last 24 Hours Temperature 100.1 F Temperature 99.5 F Temperature 99.0 F Temperature 99.8 F - Labs CBC & Chem 7: 05/01/19 09:30 05/01/19 05:10 Labs: Abnormal lab results 04/30/19 04/30/19 04/30/19 Range/Units 18:44 22:00 23:58 WBC (4.5-11.0) K/mm3 RBC (3.65-5.03) M/mm3 Hgb (10.1-14.3) gm/dl Hct (30.3-42.9) % MCH (28-32) pg RDW (13.2-15.2) % Lymph % (Auto) (13.4-35.0) % [place] % (Auto) (0.0-7.3) % [place] # (0.0-0.8) K/mm3 Seg Neutrophils % (40.0-70.0) % Seg Neutrophils # (1.8-7.7) K/mm3 Potassium (3.6-5.0) mmol/L Creatinine (0.7-1.2) mg/dL Glucose (65-100) mg/dL POC Glucose 158 H 145 H (70-105) U Epithel Cells (Auto) 15.0 H (0-13.0) /HPF 05/01/19 05/01/19 05/01/19 Range/Units 05:10 05:16 09:30 WBC 13.5 H (4.5-11.0) K/mm3 RBC 3.28 L (3.65-5.03) M/mm3 Hgb 8.8 L (10.1-14.3) gm/dl Hct 27.5 L (30.3-42.9) % MCH 27 L (28-32) pg RDW 16.4 H (13.2-15.2) % Lymph % (Auto) 10.7 L (13.4-35.0) % [place] % (Auto) 8.5 H (0.0-7.3) % [place] # 1.1 H (0.0-0.8) K/mm3 Seg Neutrophils % 77.7 H (40.0-70.0) % Seg Neutrophils # 10.5 H (1.8-7.7) K/mm3 Potassium 3.4 L (3.6-5.0) mmol/L Creatinine 0.4 L (0.7-1.2) mg/dL Glucose 137 H (65-100) mg/dL POC Glucose 135 H (70-105) U Epithel Cells (Auto) (0-13.0) /HPF 05/01/19 Range/Units 12:45 WBC (4.5-11.0) K/mm3 RBC (3.65-5.03) M/mm3 Hgb (10.1-14.3) gm/dl Hct (30.3-42.9) % MCH (28-32) pg RDW (13.2-15.2) % Lymph % (Auto) (13.4-35.0) % [place] % (Auto) (0.0-7.3) % [place] # (0.0-0.8) K/mm3 Seg Neutrophils % (40.0-70.0) % Seg Neutrophils # (1.8-7.7) K/mm3 Potassium (3.6-5.0) mmol/L Creatinine (0.7-1.2) mg/dL Glucose (65-100) mg/dL POC Glucose 147 H (70-105) U Epithel Cells (Auto) (0-13.0) /HPF
[2019-05-01] MEDS: NACL 0.9% 1000 ML 1,000 ML IV SCH (17:51)
[2019-05-02] MEDS: PROVENTIL IH PRN ×2 (02:32→10:03)
[2019-05-02] MEDS: MAXIPIME/NS 2 GM/100 ML 2 GM/100 ML BAG IV SCH ×2 (08:18→18:28)
[2019-05-02 08:34] LABS: Basophils % (Auto) 0.3 % (0.0-1.8); Eosinophils # (Auto) 0.5 K/mm3 (0.0-0.4); Eosinophils % (Auto) 5.1 % (0.0-4.3); Hematocrit 27.1 % (30.3-42.9); Hemoglobin 8.7 gm/dl (10.1-14.3); Lymphocytes # (Auto) 1.5 K/mm3 (1.2-5.4); Lymphocytes % (Auto) 16.4 % (13.4-35.0); Mean Corpuscular HGB Conc 32 % (30-34); Mean Corpuscular Volume 83 fl (79-97); Monocytes # (Auto) 1.2 K/mm3 (0.0-0.8); Monocytes % (Auto) 12.7 % (0.0-7.3); Platelet Count 191 K/mm3 (140-440); Red Blood Count 3.25 M/mm3 (3.65-5.03); Red Cell Distribution Width 16.1 % (13.2-15.2)
[2019-05-02 08:54] LABS: BUN/Creatinine Ratio 33; Blood Urea Nitrogen 13 mg/dL (7-17); Calcium 8.6 mg/dL (8.4-10.2); Hemolysis Index 0
[2019-05-02] MEDS: NACL 0.9% 1000 ML 1,000 ML IV SCH (09:06)
[2019-05-02] MEDS: PEPCID IV SCH ×2 (09:08→22:00)
[2019-05-02] MEDS: VANCOMYCIN 1,500 MG in NACL 0.9% 500 ML 500 ML IV SCH (09:40)
--- NOTE | 2019-05-02 11:29 | Progress Note ---
Assessment and Plan Assessment and plan: Pt is a 73 year old female with PMHx of HTN, dementia, DM type 2, CVA with contractures deformities, Quadruplegia, and multiple sacral and heels ulcers who was brought to the ER from [facility] for fever and decubitus ulcers. Pt was seen in the ER, she is non-verval, catatonic state and unable to provide any medical history. Most of the history and information was obtained from the pt's record from the rehab. In the ER, pt's temp was 101.9, his WBC was 22.9, she was started in antibiotic and admitted for further management. * Previous admission in 07/2018, had necrotic R hip wound and underwent bedside debridement by Gen. Surg * No new fever. XR LEFT FOOT:Soft tissue swelling of the mid and distal foot is identified. The fifth metatarsal is indistinct and incompletely visualized. Generalized bony demineralization. No other skeletal abnormality. CXR: No acute findings. Culture: Blood culture. Coagulase negative Staph Wound culture: Gram negative Sree 1. Sepsis Secondary to multiple Ulcers 2. Multiple decubitus ulcers 3. H/o stroke with contracture deformities 4. HTN 5. DM type 2 6. Quadruplegia 7. Dementia 8. Non-communicativ 9. Anemia 10. Obesity 11. Lactic Acidosis-improved 12. Hypokalemia-improved Plan: Continue supportive Care Consult ID and input noted, Surgical input noted, family discussing plan of care, Will also talk to them today about quality of life for this patient Follow urine culture Continue antibiotics with cefepime, vanco IV IVF for hydration Consult would care for ulcers management Q2hr turns Continue home meds Glycemic management with insulin per sliding scale Further plan per hospital course DNR D/W, anticipate discharge in am. Family will discuss Hospice and inform facility if they opt for that choice. Discussed with Akira Waters Poor Prognosis History Interval history: Patient seen and examined, patient is non verbal, contracted. No adverse event reported by nursing staff. Low grade fever noted Hospitalist Physical - Physical exam Narrative exam: Constitutional: awake, non verbal, non communicative, contracted, obese Head, Ears, Nose: Normocephalic, atraumatic. External ears, nose normal Eyes: Conjunctivae/corneas clear. No icterus. No ptosis. Neck: Supple, no meningeal signs Cardiovascular: S1, S2 normal. Respiratory: Good air entry, clear to auscultation bilaterally- although some upper ext weehezing GI: Soft, non-tender; bowel sounds normal. No peritoneal signs. G tube Musculoskeletal: No pedal edema, no cyanosis. Mulitiple contracture Skin: leg wounds, R hip deep wound, sacral wound with dressing.see wound care note for full documentation Hem/Lymphatic: No palpable cervical or supraclavicular nodes. No lymphangitis Psych: no agitation Neurological: awake, non verbal, non communicative - Constitutional Vitals: Temp Pulse Resp BP Pulse Ox 98.9 F 104 H 24 172/98 99 05/02/19 07:12 05/02/19 10:04 05/02/19 10:04 05/02/19 07:12 05/02/19 07:50 General appearance: Present: obese, other (nonverbal) Results - Labs CBC & Chem 7: 05/02/19 08:20 05/02/19 08:20 Labs: Laboratory Last Values WBC 9.2 K/mm3 (4.5-11.0) 05/02/19 08:20 RBC 3.25 M/mm3 (3.65-5.03) L 05/02/19 08:20 Hgb 8.7 gm/dl (10.1-14.3) L 05/02/19 08:20 Hct 27.1 % (30.3-42.9) L 05/02/19 08:20 MCV 83 fl (79-97) 05/02/19 08:20 MCH 27 pg (28-32) L 05/02/19 08:20 MCHC 32 % (30-34) 05/02/19 08:20 RDW 16.1 % (13.2-15.2) H 05/02/19 08:20 Plt Count 191 K/mm3 (140-440) 05/02/19 08:20 Lymph % (Auto) 16.4 % (13.4-35.0) 05/02/19 08:20 Grand % (Auto) 12.7 % (0.0-7.3) H 05/02/19 08:20 Eos % (Auto) 5.1 % (0.0-4.3) H 05/02/19 08:20 Baso % (Auto) 0.3 % (0.0-1.8) 05/02/19 08:20 Lymph # 1.5 K/mm3 (1.2-5.4) 05/02/19 08:20 Grand # 1.2 K/mm3 (0.0-0.8) H 05/02/19 08:20 Eos # 0.5 K/mm3 (0.0-0.4) H 05/02/19 08:20 Baso # 0.0 K/mm3 (0.0-0.1) 05/02/19 08:20 Add Manual Diff Complete 04/30/19 02:28 Total Counted 100 04/30/19 02:28 Seg Neutrophils % 65.5 % (40.0-70.0) 05/02/19 08:20 Seg Neuts % (Manual) 89.0 % (40.0-70.0) H 04/30/19 02:28 Band Neutrophils % 0 % 04/30/19 02:28 Lymphocytes % (Manual) 9.0 % (13.4-35.0) L 04/30/19 02:28 Reactive Lymphs % (Man) 0 % 04/30/19 02:28 Monocytes % (Manual) 1.0 % (0.0-7.3) 04/30/19 02:28 Eosinophils % (Manual) 0 % (0.0-4.3) 04/30/19 02:28 Basophils % (Manual) 0 % (0.0-1.8) 04/30/19 02:28 Metamyelocytes % 1.0 % 04/30/19 02:28 Myelocytes % 0 % 04/30/19 02:28 Promyelocytes % 0 % 04/30/19 02:28 Blast Cells % 0 % 04/30/19 02:28 Nucleated RBC % Not Reportable 04/30/19 02:28 Seg Neutrophils # 6.0 K/mm3 (1.8-7.7) 05/02/19 08:20 Seg Neutrophils # Man 20.4 K/mm3 (1.8-7.7) H 04/30/19 02:28 Band Neutrophils # 0.0 K/mm3 04/30/19 02:28 Lymphocytes # (Manual) 2.1 K/mm3 (1.2-5.4) 04/30/19 02:28 Abs React Lymphs (Man) 0.0 K/mm3 04/30/19 02:28 Monocytes # (Manual) 0.2 K/mm3 (0.0-0.8) 04/30/19 02:28 Eosinophils # (Manual) 0.0 K/mm3 (0.0-0.4) 04/30/19 02:28 Basophils # (Manual) 0.0 K/mm3 (0.0-0.1) 04/30/19 02:28 Metamyelocytes # 0.2 K/mm3 04/30/19 02:28 Myelocytes # 0.0 K/mm3 04/30/19 02:28 Promyelocytes # 0.0 K/mm3 04/30/19 02:28 Blast Cells # 0.0 K/mm3 04/30/19 02:28 WBC Morphology Not Reportable 04/30/19 02:28 Hypersegmented Neuts Not Reportable 04/30/19 02:28 Hyposegmented Neuts Not Reportable 04/30/19 02:28 Hypogranular Neuts Not Reportable 04/30/19 02:28 Smudge Cells Not Reportable 04/30/19 02:28 Toxic Granulation Not Reportable 04/30/19 02:28 Toxic Vacuolation Not Reportable 04/30/19 02:28 Dohle Bodies Not Reportable 04/30/19 02:28 Pelger-Huet Anomaly Not Reportable 04/30/19 02:28 Cass Rods Not Reportable 04/30/19 02:28 Platelet Estimate Consistent w auto 04/30/19 02:28 Clumped Platelets Not Reportable 04/30/19 02:28 Plt Clumps, EDTA Not Reportable 04/30/19 02:28 Large Platelets Not Reportable 04/30/19 02:28 Giant Platelets Not Reportable 04/30/19 02:28 Platelet Satelliting Not Reportable 04/30/19 02:28 Plt Morphology Comment Not Reportable 04/30/19 02:28 RBC Morphology Not Reportable 04/30/19 02:28 Dimorphic RBCs Not Reportable 04/30/19 02:28 Polychromasia Not Reportable 04/30/19 02:28 Hypochromasia Not Reportable 04/30/19 02:28 Poikilocytosis Not Reportable 04/30/19 02:28 Anisocytosis Not Reportable 04/30/19 02:28 Microcytosis Few 04/30/19 02:28 Macrocytosis Not Reportable 04/30/19 02:28 Spherocytes Not Reportable 04/30/19 02:28 Pappenheimer Bodies Not Reportable 04/30/19 02:28 Sickle Cells Not Reportable 04/30/19 02:28 Target Cells Not Reportable 04/30/19 02:28 Tear Drop Cells Not Reportable 04/30/19 02:28 Ovalocytes Few 04/30/19 02:28 Helmet Cells Not Reportable 04/30/19 02:28 [place] Bodies Not Reportable 04/30/19 02:28 [place] Rings Not Reportable 04/30/19 02:28 Kayce Cells Not Reportable 04/30/19 02:28 Bite Cells Not Reportable 04/30/19 02:28 Crenated Cell Not Reportable 04/30/19 02:28 Elliptocytes Rare 04/30/19 02:28 Acanthocytes (Spur) Not Reportable 04/30/19 02:28 Rouleaux Not Reportable 04/30/19 02:28 Hemoglobin C Crystals Not Reportable 04/30/19 02:28 Schistocytes Not Reportable 04/30/19 02:28 Malaria parasites Not Reportable 04/30/19 02:28 ESR 120 mm/Hr (0-20) 04/30/19 02:28 Chris Bodies Not Reportable 04/30/19 02:28 Hem Pathologist Commnt No 04/30/19 02:28 PT 14.5 Sec. (12.2-14.9) 04/30/19 02:28 INR 1.16 (0.87-1.13) H 04/30/19 02:28 VBG pH 7.435 (7.320-7.420) H 04/30/19 02:28 Sodium 143 mmol/L (137-145) 05/02/19 08:20 Potassium 3.7 mmol/L (3.6-5.0) 05/02/19 08:20 Chloride 107.0 mmol/L (98-107) 05/02/19 08:20 Carbon Dioxide 24 mmol/L (22-30) 05/02/19 08:20 Anion Gap 16 mmol/L 05/02/19 08:20 BUN 13 mg/dL (7-17) 05/02/19 08:20 Creatinine 0.4 mg/dL (0.7-1.2) L 05/02/19 08:20 Estimated GFR > 60 ml/min 05/02/19 08:20 BUN/Creatinine Ratio 33 % 05/02/19 08:20 Glucose 140 mg/dL (65-100) H 05/02/19 08:20 POC Glucose 138 (70-105) H 05/02/19 05:59 Lactic Acid 0.90 mmol/L (0.7-2.0) 05/01/19 05:10 Calcium 8.6 mg/dL (8.4-10.2) 05/02/19 08:20 Total Bilirubin 0.50 mg/dL (0.1-1.2) 04/30/19 03:33 AST 22 units/L (5-40) 04/30/19 03:33 ALT 9 units/L (7-56) 04/30/19 03:33 Alkaline Phosphatase 121 units/L (35-129) 04/30/19 03:33 Total Creatine Kinase 106 units/L (30-135) 04/30/19 03:33 C-Reactive Protein 5.30 mg/dL (0.00-1.30) H 04/30/19 03:33 Total Protein 8.7 g/dL (6.3-8.2) H 04/30/19 03:33 Albumin 3.0 g/dL (3.9-5) L 04/30/19 03:33 Albumin/Globulin Ratio 0.5 % 04/30/19 03:33 Urine Color Yellow (Yellow) 04/30/19 22:00 Urine Turbidity Cloudy (Clear) 04/30/19 22:00 Urine pH 7.0 (5.0-7.0) 04/30/19 22:00 Ur Specific [place] 1.024 (1.003-1.030) 04/30/19 22:00 Urine Protein <15 mg/dl mg/dL (Negative) 04/30/19 22:00 Urine Glucose (UA) Neg mg/dL (Negative) 04/30/19 22:00 Urine Ketones Neg mg/dL (Negative) 04/30/19 22:00 Urine Blood Sm (Negative) 04/30/19 22:00 Urine Nitrite Neg (Negative) 04/30/19 22:00 Urine Bilirubin Neg (Negative) 04/30/19 22:00 Urine Urobilinogen < 2.0 mg/dL (<2.0) 04/30/19 22:00 Ur Leukocyte Esterase Lg (Negative) 04/30/19 22:00 Urine WBC (Auto) 5.0 /HPF (0.0-6.0) 04/30/19 22:00 Urine RBC (Auto) 16.0 /HPF (0.0-6.0) 04/30/19 22:00 U Epithel Cells (Auto) 15.0 /HPF (0-13.0) H 04/30/19 22:00 Urine Mucus Few /HPF 04/30/19 22:00 Active Medications - Current Medications Current Medications: Generic Name Dose Route Start Last Admin Trade Name Freq PRN Reason Stop Dose Admin Acetaminophen 650 mg 04/30/19 11:31 04/30/19 22:14 Tylenol PO 650 mg Q6H PRN Administration Pain, Mild (1-3) Albuterol 2.5 mg 05/01/19 14:00 05/02/19 10:03 Proventil IH 2.5 mg Q6HRT PRN Administration Wheezing Lipase/Protease/Amylase 1 each 04/30/19 11:[address] 10,500 Unit FEEDTUBE PRN PRN For Clogged Feeding Tube Famotidine 20 mg 04/30/19 10:00 05/02/19 09:08 Pepcid IV 20 mg BID KRISTY Administration Vancomycin HCl 1,500 mg/ 530 mls @ 333.333 mls/hr 05/01/19 06:00 05/02/19 09:40 Sodium Chloride IV 333.333 mls/hr Q24H KRISTY Administration Cefepime HCl 2 gm in 100 mls @ 200 mls/hr 05/01/19 14:00 05/02/19 08:18 Maxipime/Ns 2 Gm/100 Ml IV 200 mls/hr Q8H KRISTY Administration Protocol Ondansetron HCl 4 mg 04/30/19 05:07 Zofran IV Q8H PRN Nausea And Vomiting Oxycodone/Acetaminophen 1 tab 04/30/19 05:07 Percocet 5/325 PO Q6H PRN Pain, Moderate (4-6) Simple Syrup 15 ml 04/30/19 11:53 Simple Syrup FEEDTUBE PRN PRN Hypoglycemia Simple Syrup 30 ml 04/30/19 11:53 Simple Syrup FEEDTUBE PRN PRN Hypoglycemia Sodium Bicarbonate 325 mg 04/30/19 11:53 Sodium Bicarbonate FEEDTUBE PRN PRN For Clogged Feeding Tube Nutrition/Malnutrition Assess - Dietary Evaluation Nutrition/Malnutrition Findings: Nutrition Notes Start: 04/30/19 11:14 Freq: Status: Active Protocol: Document 05/02/19 09:59 AP (Rec: 05/02/19 10:19 AP [id number]) Co-Sign 05/02/19 09:59 LM Nutrition Notes Initial or Follow up Reassessment Current Diagnosis Decubitus(Pressure Ulcer), Diabetes,Hypertension, Hyperlipidemia Other Pertinent Diagnosis CVA, Anemia, AMS, SIRS, Quadriplegia Current Diet Glucerna 1.2 at 60ml/hr. Labs/Tests Reviewed Pertinent Medications NS 75ml/hr Height 5 ft 4 in Weight 97.6 kg [place] Body Weight (kg) 54.54 BMI 36.9 Subjective/Other Information F/U for TF tolerance, Matthew administration. Pt TF running at 60ml/hr. RN states pt is receiving Matthew BID. Percent of energy/protein needs met: 88%/92% Burn Absent Trauma Absent Minimum of two criteria No physical signs of malnutrition #1 Nutrition Diagnosis Increased nutrient needs ( specify in comment below) Diagnosis Progress(for reassessment Continues documentation) Is patient on ventilator? No Is Patient Ambulatory and/or Out of Bed No REE-([facility]-confined to bed) 1765.032 Kcal/Kg value to use for calculation 20 Approximate Energy Requirements Using 1952 kcal/Kg Calculation Used for Recommendations Kcal/kg Additional Notes PRO: 95-144g (1.25-1.5g/kg/ AdBW) Nutrition Intervention Nutrition Support: Glucerna 1.2 at 60ml/hr. Water flush 100ml q 4. Kcal 1,728 Protein (gm) 86 Fluid (mL) 1,159 Add Supplement/Snack (indicate name/kcal Matthew /protein ) Provides kCal: 190 Provides Protein (gm) 5 Goal #1 Pt continue to meet >80% kcal/ PRO needs from TF. Goal #2 Wound healing. Anticipated Discharge Needs: CHO controlled, TF formula. Follow-Up By: 05/06/19 Additional Comments F/U for TF tolerance/Matthew administration.
--- NOTE | 2019-05-02 13:46 | Progress Note ---
Assessment and Plan Cultures: 04/30/2019 blood culture: GPC - Coag negative staph. 04/30/2019 Left foot culture: GNR 04/30/2019 Right hip culture: GNR 05/01/2019 blood culture: in process A/P: 73-year-old female with dementia, hypertension, bedbound status, functional quadriplegia, senior living resident. She is s/p G tube. Has a history of multiple decubiti. Known to us from previous admission in 07/2018, had necrotic R hip wound and underwent bedside debridement by Gen. Surg #1 Sepsis: Present on admission, likely secondary to infected decubitus ulcer v/s urine source (less likely). Chest x-ray not consistent with any obvious pneumonia. #2 Multiple decubitus ulcers: She has had debridement in the past. Overall prognosis is extremely guarded given her baseline comorbidities. Will treat the sepsis, prolonged abx will be futile. Surgery following. #3 Chronic encephalopathy with functional quadriplegia: guarded prognosis. #4 GPC bacteremia: / bottles with CoNS, possible contaminant. Recs: Continue IV Cefepime and vancomycin f/u blood and wound cultures continue wound care overall poor prognosis, agree with palliative care/hospice America Miranda MD, FACP [facility] C: [phone] O: [phone] F: [phone] Subjective Date of service: 05/02/19 Interval history: Low grade fever +. Remains unresponsive, at baseline. Unable to provide history or ROS. Objective - Exam Narrative Exam: Physical Exam: Constitutional: non verbal, non communicative. No distres Head, Ears, Nose: Normocephalic, atraumatic. External ears, nose normal Eyes: Conjunctivae/corneas clear. No icterus. No ptosis. Neck: Supple, no meningeal signs Oral: unable to examine Cardiovascular: S1, S2 normal. Respiratory: Good air entry, clear to auscultation bilaterally GI: Soft, non-tender; bowel sounds normal. No peritoneal signs. G tube Musculoskeletal: No pedal edema, no cyanosis. Skin: foot wounds b/l, R hip deep wound, sacral wound with dressings Hem/Lymphatic: No palpable cervical or supraclavicular nodes. No lymphangitis Psych: no agitation Neurological: non verbal, non communicative, opens eyes at times - Constitutional Vitals: Vital Signs Temp Pulse Resp BP Pulse Ox 98.9 F 104 H 24 172/98 99 05/02/19 07:12 05/02/19 10:04 05/02/19 10:04 05/02/19 07:12 05/02/19 07:50 Temperature -Last 24 Hours Temperature 98.9 F Temperature 100.1 F Temperature 99.5 F - Labs CBC & Chem 7: 05/02/19 08:20 05/02/19 08:20 Labs: Abnormal lab results 05/01/19 05/02/19 05/02/19 Range/Units 18:30 00:18 05:59 RBC (3.65-5.03) M/mm3 Hgb (10.1-14.3) gm/dl Hct (30.3-42.9) % MCH (28-32) pg RDW (13.2-15.2) % [place] % (Auto) (0.0-7.3) % Eos % (Auto) (0.0-4.3) % [place] # (0.0-0.8) K/mm3 Eos # (0.0-0.4) K/mm3 Creatinine (0.7-1.2) mg/dL Glucose (65-100) mg/dL POC Glucose 157 H 138 H 138 H (70-105) 05/02/19 05/02/19 05/02/19 Range/Units 08:20 08:20 11:58 RBC 3.25 L (3.65-5.03) M/mm3 Hgb 8.7 L (10.1-14.3) gm/dl Hct 27.1 L (30.3-42.9) % MCH 27 L (28-32) pg RDW 16.1 H (13.2-15.2) % [place] % (Auto) 12.7 H (0.0-7.3) % Eos % (Auto) 5.1 H (0.0-4.3) % [place] # 1.2 H (0.0-0.8) K/mm3 Eos # 0.5 H (0.0-0.4) K/mm3 Creatinine 0.4 L (0.7-1.2) mg/dL Glucose 140 H (65-100) mg/dL POC Glucose 148 H (70-105)
[2019-05-03] MEDS: MAXIPIME/NS 2 GM/100 ML 2 GM/100 ML BAG IV SCH ×2 (01:24→06:23)
[2019-05-03 05:32] LABS: Hematocrit 28.3 % (30.3-42.9); Hemoglobin 9.1 gm/dl (10.1-14.3); Mean Corpuscular HGB Conc 32 % (30-34); Mean Corpuscular Volume 84 fl (79-97); Platelet Count 212 K/mm3 (140-440); Red Blood Count 3.39 M/mm3 (3.65-5.03); Red Cell Distribution Width 16.4 % (13.2-15.2)
[2019-05-03 05:52] LABS: BUN/Creatinine Ratio 43; Blood Urea Nitrogen 13 mg/dL (7-17); Calcium 8.5 mg/dL (8.4-10.2); Hemolysis Index 1
[2019-05-03] MEDS: VANCOMYCIN 1,500 MG in NACL 0.9% 500 ML 500 ML IV SCH (07:35)
[2019-05-03 08:12] VITALS: BP 156/81
[2019-05-03] MEDS: PEPCID IV SCH (09:17)
[2019-05-03] MEDS: TYLENOL PO PRN (09:21)
[2019-05-03] MEDS: PROVENTIL IH PRN (09:48)
--- NOTE | 2019-05-03 10:47 | Discharge Summary ---
Providers - Providers Date of Admission: 04/30/19 05:42 Attending physician: CATE GAYTAN MD 04/30/19 02:20 Consult to Physician [CONS] Urgent Comment: Consulting Provider: SHRUTHI WOOD Physician Instructions: Reason For Exam: infected wound 04/30/19 06:08 Consult to Wound/ET Nurse [CONS] Routine Reason For Exam: wound eval 04/30/19 06:09 Consult to Dietitian/Nutrition [CONS] Routine Physician Instructions: Reason For Exam: Tube feeding w/wounds Reason for Consult: Write/Manage Tube Feeding 04/30/19 07:22 Consult to Physician [CONS] Routine Comment: Consulting Provider: CHRISTA MARAVILLA Physician Instructions: Reason For Exam: Sepsis Primary care physician: [employer] Hospitalization Reason for admission: sepsis Condition: Stable Hospital course: Pt is a 73 year old female with PMHx of HTN, dementia, DM type 2, CVA with contractures deformities, Quadruplegia, and multiple sacral and heels ulcers who was brought to the ER from [facility] for fever and decubitus ulcers. Pt was seen in the ER, she is non-verval, catatonic state and unable to provide any medical history. Most of the history and information was obtained from the pt's record from the rehab. In the ER, pt's temp was 101.9, his WBC was 22.9, she was started in antibiotic and admitted for further management. * Previous admission in 07/2018, had necrotic R hip wound and underwent bedside debridement by Gen. Surg * No new fever. * Discuses with son Akira Waters, informs me family is not interested in any aggressive surgical measures and will rather plan for comfort care but will discuss with family about Hospice when the patient gets to SNF * Reviewed cultures with ID doctor, and we will discharge on a combination of Cipro and Ceftin for 7 days XR LEFT FOOT:Soft tissue swelling of the mid and distal foot is identified. The fifth metatarsal is indistinct and incompletely visualized. Generalized bony demineralization. No other skeletal abnormality. CXR: No acute findings. Culture: Blood culture. Coagulase negative Staph Wound culture:Proteous and Pseudomonas 1. Sepsis Secondary to multiple Ulcers 2. Multiple decubitus ulcers 3. H/o stroke with contracture deformities 4. HTN 5. DM type 2 6. Quadruplegia 7. Dementia 8. APHASIA 9. Anemia 10. Obesity 11. Lactic Acidosis-improved 12. Hypokalemia-improved Disposition: DC/[place] Time spent for discharge: 35 mins Core Measure Documentation - Palliative Care Palliative Care/ Comfort Measures: Palliative Care/Comfort Measures - Core Measures Any of the following diagnoses?: none Exam - Physical Exam Narrative exam: Constitutional: awake, non verbal, non communicative, contracted, obese Head, Ears, Nose: Normocephalic, atraumatic. External ears, nose normal Eyes: Conjunctivae/corneas clear. No icterus. No ptosis. Neck: Supple, no meningeal signs Cardiovascular: S1, S2 normal. Respiratory: Good air entry, clear to auscultation bilaterally- although some upper ext weehezing GI: Soft, non-tender; bowel sounds normal. No peritoneal signs. G tube Musculoskeletal: No pedal edema, no cyanosis. Mulitiple contracture Skin: leg wounds, R hip deep wound, sacral wound with dressing.see wound care note for full documentation Hem/Lymphatic: No palpable cervical or supraclavicular nodes. No lymphangitis Psych: no agitation Neurological: awake, non verbal, non communicative - Constitutional Vitals: Temp Pulse Resp BP Pulse Ox 99.1 F 102 H 20 156/81 97 05/03/19 07:55 05/03/19 10:00 05/03/19 10:00 05/03/19 07:55 05/03/19 10:00 Plan Activity: advance as tolerated, fall precautions Diet: advance as tolerated Special Instructions: record daily BP diary, record blood sugar diary Follow up with: PRIMARY MD CARMENZA [Primary Care Provider] - 3-5 Days JUAN MANUEL SMALL MD [Staff Physician] - 7 Days [facility] [Outside] - 7 Days Prescriptions: cefUROXime [Ceftin] 250 mg PO Q12H #14 tablet Ciprofloxacin HCl [Ciprofloxacin TAB] 500 mg PO Q12HR #14 tab oxyCODONE /ACETAMINOPHEN [Percocet 5/325 mg] 1 tab FEEDTUBE Q6HR PRN #14 PRN Reason: Pain
[2019-05-03] MEDS ORDERED: LASIX IV NR ×2 (11:00→11:08)
== END 2019-05-03 13:25 | DRG 871 ==
LOC: ED 01:21 → 2B-ACE 05:42
PROVIDERS: ADMIT Internal Medicine; ATTEND Internal Medicine
DX: A41.9 Sepsis, unspecified organism (principal); R53.2 Functional quadriplegia; R47.01 Aphasia; G93.49 Other encephalopathy; F03.90 Unspecified dementia, unspecified severity, without behavioral disturbance, psychotic disturbance, mood disturbance, and anxiety; I10 Essential (primary) hypertension; L89.609 Pressure ulcer of unspecified heel, unspecified stage; L89.159 Pressure ulcer of sacral region, unspecified stage; D64.9 Anemia, unspecified; E11.9 Type 2 diabetes mellitus without complications; E66.9 Obesity, unspecified; E87.6 Hypokalemia; Z66 Do not resuscitate; Z86.73 Personal history of transient ischemic attack (TIA), and cerebral infarction without residual deficits; Z68.36 Body mass index [BMI] 36.0-36.9, adult; Z74.01 Bed confinement status; Z93.1 Gastrostomy status; Z79.899 Other long term (current) drug therapy
CPT/HCPCS: 36415; 71045; 80048; 80053; 81001; 82140; 82550; 82805; 82962; 85007; 85025; 85027; 85610; 85652; 86140; 87040; 87076; 87086; 87116; 87186; 93005; 93010; 94640; 94760; G0378; J0692; J1940; J2543; J3370; J3480; J7030; J7040